=== PATIENT | male | born 1940 | race Caucasian/White ===

== ENCOUNTER 2025-01-28 15:22 | Emergency (ER) | payer MEDICARE, SELFPAY ==
[2025-01-28 15:34] VITALS: BP 166/76; PULSE 102; RESP 21; TEMP 36.6; O2SAT 100
--- NOTE | 2025-01-28 16:48 | ED_ITS ---
HPI - General Adult General Chief complaint: Urogenital-Male Stated complaint: retention Time Seen by Provider: 01/28/25 16:02 History of Present Illness HPI narrative: 85-year-old male present to the emergency department for evaluation for urinary retention. Patient had an outpatient procedure on his cochlear implant today. Patient was under anesthesia. Patient states after the procedure he had greater than 3 hours without any urinary output. Patient does have a history of enlar ged prostate but does not take any medications for this. Upon arrival emergency department patient had a bladder scan showing greater than 1 L of retained urine. Review of Systems Review of Systems: All systems reviewed & are unremarkable except as noted in HPI and below Exam 2 Narrative: APPEARANCE: Well appearing, no pain, no distress, well-nourished. HEAD: normocephalic, atraumatic. EYES: PERRLA/EOMI, conjunctivae clear. NOSE: Normal no drainage EARS: Bandage in place over right ear THROAT: Pharynx clear, no exudate. NECK: Supple. No adenopathy, no masses. RESPIRATORY: Airway patent, respirations nonlabored. Clear to auscultation bilaterally, no rales, rhonchi, wheezing. CARDIOVASCULAR: Regular rate and rhythm without murmurs rubs or gallops. ABDOMINAL: Soft, nontender, nondistended, normal bowel sounds MUSCULOSKELETAL: Moves all extremities. Strength/ROM intact, No edema, No calf tenderness. NEURO: Alert. Cranial nerves II through XII intact. Good gait. Good coordination SKIN: Warm, dry. Normal Color Course Vital Signs Vital signs: Vital Signs Temperature 97.8 F 01/28/25 15:34 Pulse Rate 102 H 01/28/25 15:34 Respiratory Rate 21 H 01/28/25 15:34 Blood Pressure 166/76 H 01/28/25 15:34 Pulse Oximetry 100 01/28/25 15:34 Oxygen Delivery Room Air 01/28/25 15:34 Temperature 97.8 F 01/28/25 15:34 Pulse Rate 102 H 01/28/25 15:34 Respiratory Rate 21 H 01/28/25 15:34 Blood Pressure 166/76 H 01/28/25 15:34 Pulse Oximetry 100 01/28/25 15:34 Oxygen Delivery Room Air 01/28/25 15:34 Medical Decision Making [facility] Narrative Medical decision making narrative: 84-year-old male presenting to the emergency department for evaluation for urinary retention. Bladder scan showed greater than 1 L of retained urine. Patient did have approximately 1400 mL urinary output after placement of Lindsay catheter. Patient family are updated on the evaluation and discharge plan. Patient will be discharged home with a Lindsay bag and a large bag. Patient does live in [place]. Patient will have follow-up with his primary care physician and urologist. He will be started on Flomax in the emergency department discharged home on Flomax. Differential Diagnosis Differential Diagnosis: Urinary retention, urinary tract infection, enlarged prostate Vital Signs Vital Signs: Vital Signs Temperature 97.8 F 01/28/25 15:34 Pulse Rate 102 H 01/28/25 15:34 Respiratory Rate 21 H 01/28/25 15:34 Blood Pressure 166/76 H 01/28/25 15:34 Pulse Oximetry 100 01/28/25 15:34 Oxygen Delivery Room Air 01/28/25 15:34 Temperature 97.8 F 01/28/25 15:34 Pulse Rate 102 H 01/28/25 15:34 Respiratory Rate 21 H 01/28/25 15:34 Blood Pressure 166/76 H 01/28/25 15:34 Pulse Oximetry 100 01/28/25 15:34 Oxygen Delivery Room Air 01/28/25 15:34 Discharge Plan Discharge Clinical Impression: Acute retention of urine Patient Disposition: Home Condition: Stable Instructions: Antibiotic Form, Lindsay Catheter Placement and Care (ED) Additional Instructions: Lindsay catheter care as directed. Have close follow-up with your primary care physician and with Urology. Patient Language: Slovak Prescriptions: New tamsulosin [Flomax] 0.4 mg capsule 0.4 mg PO DAILY 14 Days Qty: 14 0RF Follow-up/Referrals: PHYSICIAN NOT ON STAFF,NONSTAFF [Non-Staff] -
--- OUTSIDE RECORDS SUMMARY | 2025-01-28 17:19 | XMS_ITS | Encounter Summary ---
Author Organization [facility] althcare Address [address] [place] [address] Care Team Providers Care Forest Fire Management Officer Name Role Phone Kacey SHIN MD, Julius Avendaño Primary Care Provider [phone] Reason for Visit * Reason Comments Med Refill Encounter Details Date Type Department Care Team (Late st Contact Info) Description 01/03/2025 Refill [facility] G[facility] [address] [place] [phone] Kiya Anguiano, TITLE PROCESSOR [address] [place] [address] Medication refill; Ulcerative colitis without complications, unspecified location (HCC) Social History Tobacco Use Types Packs/Day Years Used Date Smoking Tobacco: Former Cigarettes 1 50 1 957 - 2007 Smokeless Tobacco: Never Alcohol Use Standard Drinks/Week Comments No 0 (1 standard drink = 0.6 oz pur e alcohol) Sex and Gender Information Value Date Recorded Sex Assigned at Not on file Legal Sex Male 8:51 PM CDT Gender Identity Not on file Sexual Orientation Not on file documented as of this encounter Miscellaneous Notes * Telephone Encounter - Oxana Andrade LPN - 01/03/2025 11:47 AM CDT Patient called at this time. Requesting the following medication refill be sent to pharmacy: Requested Prescriptions Pending Prescriptions Disp Refills mesalamine (LIALDA) 1.2 gram EC tablet [Pharmacy Med Name: Mesalamine 1.2 GM Oral Tablet Delayed Release] 360 tablet 0 Sig: TAKE 4 TABLETS BY MOUTH ONCE DAILY Pharmacy: [facility] [address] [place] [address] Verified patient's ID with Name and . Asked caller to allow clinic 48 hours to review and address the request. Advised he can check for status of refill with the pharmacy. Please review/address the requested medication and follow up with the patient. Message routed to Kiya Anguiano NP's Finisher Tailor Apprentice. Message sent to provider's clinical patient support tech (nursing) pool. Thank you. documented in this encounter Plan of Treatment Upcoming Encounters Date Type Department Care Team (Late st Contact Info) Description 02/26/2025 11:00 AM CDT Appointment [facility] [address] [place] [phone] Judy Bess PA [address] [place] [phone] 03/28/2025 2:00 PM CDT Office Visit [facility] Sleep Medicine Professional Office Building [address] [place] [phone] Lizeth Barreto MD [address] [place] [phone] 06/26/2025 1:10 PM VEGETABLE HARVEST MACHINE OPERATOR Office Visit [facility] Gastroenterology [address] [place], [place] [address] [place] [phone] Kiya Anguiano NP [address] [place] [address] [place] [address] 07/03/2025 11:10 AM VEGETABLE HARVEST MACHINE OPERATOR Office Visit [facility] Pulmonology [address] [place] [phone] Tita Graves NP [address] [place] [address], [place] [address] documented as of this encounter Visit Diagnoses Diagnosis Medication refill Issue of repeat prescriptions Ulcerative colitis without complications, unspecified location (HCC) documented in this encounter Care Teams Forest Fire Management Officer Relationship Specialty Start Date End Date Julius Erazo II, MD [address] [place] [address] PCP - General Last Scourer 02/02/17 documented as of this encounter
--- OUTSIDE RECORDS SUMMARY | 2025-01-28 17:19 | XMS_ITS | Encounter Summary ---
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 Aren Lazo MD [address] [place] [address] Phone: tel: fax: Referral ID Status Reason Start Date Expiration Date Visits Re quested Visits Authorized [id number] 11/16/2024 1 1 Encounter Details Date Type Department Care Team (Late st Contact Info) Description 01/28/2025 7:30 AM CDT Anesthesia Event [facility] Operating Room [address] [place] [address] Ata Vizcarra MD [address] [place] [address] Minda Gong NP [address] [facility] [id number] [place] [address] Anesthesia Record Procedure Summary Procedure Name Responsible Anesthesiologist Anesthesia Start Time Anesthesia Stop Time IMPLANTATION COCHLEAR DEVICE UNILATERAL. (Right: Ear) Ata Vizcarra MD 01/28/25 0730 01/28/25 09 Events Date Time Event Comment 01/28/2025 0728 0730 An Start 0736 An Start Data 0736 In Room 0741 An Induction The patient was reevaluated immediately before moderate or deep sedation use and before anesthesia induction. 0744 An Intubation 0746 HOB turned 180 degrees 0748 Anesthesia Ready 0748 Local injected by surgeon 0748 Proc Start 0758 Incision Start 0915 Proc Fin 0917 An Extubation 0919 an stop data 0919 Out of Room 0926 Handoff to RN I completed my handoff to the receiving nurse during which we: 1. Patient identified 2. Responsible provider identified 3. Pertinent medical history reviewed 4. Procedure type and surgical course discussed 5. Intraoperative anesthetic management and any significant issues discussed 6. Expectations and concerns for postop period discussed 7. Questions solicited from receiving nurse 8. Patient disposition at the time of handoff: No value filed. 09 An Stop Meds Name Total lidocaine 2 % PF 3 mL Propofol Bolus 100 mg Propofol Infusion 1,005.39 mg fentaNYL PF 50 mcg remifentaniL (ULTIVA) 1,000 mcg in sodium chloride 0.9% 20 mL (50 mcg/mL) infusion 0.61 mg ondansetron PF 4 mg dexamethasone 4 mg/ml 10 mg ePHEDrine 35 mg succinylcholine syringe 100 mg/5 mL 90 m g glycopyrrolate 0.4 mg ceFAZolin 2,000 mg phenylephrine (NOEMY-SYNEPHRIN E) 10,000 mcg in sodium chloride 0.9% 250 mL (40 mcg/mL) infusion 2.81 mg Lactated Ringer's (LR) infusion 800 mL * Agents Name O2% N2O O2 N2O Air * Blood No blood administrations on file. Lines, Drains, and Airways Type Details Placement Removal Wound 01/28/25; 0758; N; Incision; Ear; Right 01/28/25757 by Beth Veliz RN Peripheral IV Placement Date: 01/13 02/06; Placement Time: 612; Catheter Size: 20 G; Orientation: Distal, Posterior, Right; Location: Forearm; Site Prep: Alcohol; Technique: Anatomical landmarks; Inserted by: eden; Insertion Attempts: 1; Patient Tolerance: Tolerated well; Removal Date: 01/28/25; Removal Time: 1014; Removal Reason: Discharge 01/28/25 0613 by Mili Alcazar RN 01/28/25 1014 by Aida Gallagher RN ETT Placement Date: 01/13 02/06; Placement Time: 0758 (created via procedure documentation); Mask Ventilation: 0; Technique: Direct laryngoscopy; Type: ETT - single; Single Lumen Tube Size: 7.5 mm; Cuffed: Yes; Laryngoscope: Don; Blade Size: 4; Location: Oral; Grade View: Grade I; Insertion Attempts: 1; Placement Verification: Auscultation, Capnometry; Removal Date: 01/28/25; Removal Time: 91601/28/25 0758 by Minda Brizuela CRNA 01/28/25 0917 by Minda Brizuela CRNA documented in this encounter Social History Tobacco Use Types Packs/Day Years Used Date Smoking Tobacco: Former Cigarettes Q uit: 2006 Smokeless Tobacco: Never AUDIT-C Answer Date Recorded Q1: How often do you have a drink containing alcohol? Never 01/28/2025 Q2: How many drinks containi ng alcohol do you have on a typical day when you are drinking? Patient does not drink Q3: How often do you have si x or more drinks on one occasion? Never 01/28/2025 Personal Safety Answer Date Recorded Have you ever been in or are you currently in a harmful physical or emotional relationship or is someone making you feel afraid or unsafe? 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 Never 01/28/2025 5:50 AM FABRICIOT Eden Camacho RN Q2: How many drinks containing alcohol do you have on a typical day when you are drinking? Patient does not drink 01/28/2025 5:50 AM CDT Eden Camacho RN Q3: How often do you have six or more drinks on one occasion? Never 01/28/2025 5:50 AM CDT Eden Camacho RN documented as of this encounter OR Notes * Anesthesia Postprocedure Evaluation - Ata Vizcarra MD - 01/28/2025 9:59 AM CDT Patient: Narayan Morse Procedure Summary Date: 01/28/25 Room / Location: [facility]PERATING [facility]OM 3 / [facility] Anesthesia Start: 729 Anesthesia Stop: 925 Procedure: IMPLANTATION COCHLEAR DEVICE UNILATERAL. (Right: Ear) Diagnosis: Sensorineural hearing loss (SNHL) of both ears (SNHL bilateral) Surgeons: Aren Lazo MD Responsible Provider: Ata Vizcarra MD Anesthesia Type: general ASA Status: 3 Anesthesia Type: general Last vitals BP 133/65 Pulse 76 Temp 36.7 ??C (98.1 ??F) (Temporal) Resp 15 SpO2 98% Anesthesia Post Evaluation Patient location during evaluation: PACU Patient participation: complete - patient participated Level of consciousness: fully awake Pain management: adequate Airway patency: adequate Evidence of recall: no Cardiovascular status: acceptable Respiratory status: acceptable Hydration status: acceptable Pt is: normothermic Nausea/Vomiting status: none No notable events documented. * Anesthesia Procedure Notes - Minda Brizuela CRNA - 01/28/2025 7:58 AM CDT Associated Order(s): Airway Airway Patient location: OR Urgency: elective Date/time: 01/28/2025 7:44 AM Indications for airway management: anesthesia Difficult airway: no Staff: Supervising provider: Ata Vizcarra MD Placed by: AUTOPSY ASSISTANT: Minda Brizuela CRNA Emergent airway documentation: Risks and benefits discussed: yes Consent obtained: yes Consent given by: patient Airway prep: Preoxygenated: yes Patient position: sniffing MILS maintained throughout: yes Mask difficulty assessment: 0 - not attempted Spontaneous ventilation during airway: absent Sedation level during airway: GA Final airway details: Final airway type: endotracheal airway Tube type: ETT ETT size: 7.5 mm Cuffed: yes Technique used for successful ETT placement: direct laryngoscopy Insertion site: oral Blade type: Don Blade size: 4 Cormack-Lehane (direct): grade I - full view of glottis Cuff volume: 5 mL Cuff inflated with: air ETT to gums: 22 cm Placement verified by: auscultation and CO2 detection Airway secured with: silk tape Number of attempts: 1 * Anesthesia Preprocedure Evaluation - Ata Vizcarra MD - 01/16/2025 4:48 PM CDT Images from the original note were not included. Center for Preoperative Assessment and Planning Preoperative Evaluation Record Evaluation type/location: TPAP from [facility] Planned procedure site: [facility] Date: 01/16/25 NOTE: This note represents a preoperative evaluation initiated via telephone interview. NO PHYSICALEXAM was performed at the time of initial assessment. A physical exam may be added to this note anddocumented below. Anesthesia Evaluation Narayan Morse is a 84 y.o. male IMPLANTATION COCHLEAR DEVICE UNILATERAL. (Right: Ear) Pre-Op Diagnosis Codes: * Sensorineural hearing loss (SNHL) of both ears [H90.3] HISTORY HPI Narayan Morse is a 84 y.o. male with history of ocular CVA 2019, COPD on 2L NC at night, ICA stenosis (L <50%, R 50-69%), HTN, CAD s/p CABG x4 2006 then ELMER 10/2021, UC, with hearing loss presents for implantation cochlear device right ear Past Medical History Information obtained from: patient and chart. Information obtained during: Telephone Visit NOTE: This note represents a preoperative evaluation initiated via virtual (video or telephone) interview. NO PHYSICAL EXAM was performed at the time of initial assessment. A physical exam may be added to this note and documented below. Neurological + CVA/Stroke (in right eye during retinal procedure) Number of CVA episodes: 1. Date of last CVA: 2019. + ICA stenosis - left internal carotid artery and right internal carotid artery. Left ICA stenosis <50%. Right ICA stenosis 50-69%. + Psychiatric history - depression and anxiety + Dementia/mild cognitive impairment - mild cognitive impairment. Pertinent negatives: seizures; neuromuscular disease and TIA Cardiovascular + Hypertension + Hyperlipidemia (on statin) + CAD + CABG (x4) - Prior CABG date: 2006. + Drug-eluting stent(s) (PCI to RCA in October 2021) - Prior stent(s) date: 2021. + Systolic or diastolic dysfunction w/o CHF Diastolic dysfunction w/o CHF. Diastolic function: stage I - impaired relaxation LVEF: 60-70%. + Other arrhythmia (1st degree AV block) - bradycardia. Pertinent negatives: MA ; valvular heart disease; atrial fibrillation; pacemaker/ICD; DVT/PE; negative for CHF; bare metal stent(s) and unknown stent(s) type Comments: F/b [place] [facility] Respiratory + COPD Dyspnea frequency: never. Rescue inhaler use: never. Hospitalizations/ER in the last year: 0. FEV1 % predicted: 93%. + O2 use outside the hospital - Sleep O2: 2L/min. Pertinent negatives: asthma; sleep apnea (HERMES); pulmonary hypertension; no history of oral steriod use; no prior intubation for respiratory failure; non- smoker and no tracheostomy Comments: F/b pulmonology last OV in 10/17/24 Hepatic / Heme Pertinent negatives: liver disease Renal / Pertinent negatives: renal disease and dialysis Musculoskeletal/Pain Pertinent negatives: chronic pain Endocrine / Other + Rheumatological disease - ulcerative colitis. + Eye disorder - glaucoma. Pertinent negatives: diabetes mellitus (prediabetes); thyroid disease; obesity (BMI >30); cancerhistory; transplanted organ and infectious disease Functional Capacity Functional capacity: <4 METs Comments: Limited with poor balance. Can go to grocery store and walk aisles. Does not use assistive devices. Denies BHAT or CP as limiting factors with activity. Review of Systems + SOB (BHAT, chronic, improving) + previous transfusion (2006) + easy bruising (2/2 clopidogrel, denies excessive bleeding) + dizziness (chronic, stable for past couple of years) Pertinent negatives: productive cough; wheezing; recent cold/flu; fever; chest pain; orthopnea; pedal edema; PND; transfusion reaction; melena/hematochezia; bleeding problems; syncope; chronic pain; numbness/tingling and heartburn PAT Summary and Plans Cardiac risk classification of planned procedure: low cardiac risk. Preoperative assessment status: complete. Initial preoperative evaluation discussed with: Arsenio Garcia MD Additional comments: Narayan Morse is a 84 y.o. male who is being evaluated prior to undergoing a low cardiac risk surgery. Revised Cardiac Risk Index factors are (ischemic heart disease and history of cerebrovascular disease) for a total RCRI of 2 out of 6. Functional capacity is <4 METs (specifically:vertigo and balance issues, denies BHAT or CP recently). Obstructive sleep apnea (HERMES) screening status is STOP-BANG incomplete but suspected to be 0-2 suggesting low risk for HERMES. Neck circumference pending.. This assessment was performed via telephone. Therefore the physical exam has been deferred to the day of surgery team. The patient was provided with preoperative instructions for their medications. Patient instructions were provided by telephone and in writing sent via [employer] mail. Patient verbalized understanding of instructions. Blood bank needs for day of procedure: No type and screen needed Pending labs/tests include: None The patient is on clopidogrel therapy and has a history of ELMER, CAD, and CVA. Due to the likely higher bleeding risk of this drug, we recommend switching the patient to aspirin therapy for the perioperative period. We recommend discontinuing clopidogrel for 7 days prior to the procedure and starting aspirin 81 mg daily at that time. The patient can be switched back to their original medication when the bleeding risk has decreased. Per Urology & ENT protocol, patient provided directly with instructions. Please call the CPAP chart room clinician ([phone]) with any questions or to discuss alternative management plans. The patient is currently scheduled for their procedure at [facility]. The case was discussed amongst myself and CPAP attending Dr. Garcia due to 2L O2 at night, CAD, COPD. After discussion, it is felt that the patient is an appropriate candidate for the procedure at [facility]. Please note, the patient is on donepezil therapy which may contribute to prolonged action of depolarizing NMBD's and resistance to non-depolarizing NMBD's. Preoperative evaluation performed by Arsenio Hui NP on 01/16/25 at 5:28 PM . Patient Active Problem List Diagnosis Date Noted Sensorineural hearing loss, bilateral 07/24/2023 Past Medical History: Diagnosis Date On home oxygen therapy 2L/NC nightly Past Surgical History: Procedure Laterality Date CARDIAC STENT PLACEMENT 10/29/2021 COLONOSCOPY 2017 COLONOSCOPY 2018 COLONOSCOPY 2021 CORONARY ARTERY BYPASS GRAFT 2007 4 vessel SINUS SURGERY x3 VASECTOMY 1975 Allergies Allergen Reactions Hornet Venom Anaphylaxis and Swelling Venom-Honey Bee Other (See comments) Med List Status: Nurse Complete Set By: Michelle Galicia RN at 01/11/2025 4:02 PM Taking? Last Dose Start Date End Date Provider amLODIPine (NORVASC) 2.5 mg tablet 01/11/2025 03/16/24 -- Provider, MD Rose Mary azaTHIOprine (IMURAN) 50 mg tablet 01/10/2025 10/05/16 -- Provider, MD Rose Mary calcium carbonate-vitamin D3 1500 mg (600 mg elemental) -200 units per tablet 01/10/2025 -- -- Provider, HistoricalMD clopidogreL (PLAVIX) 75 mg tablet 01/11/2025 12/05/23 -- Provider, HistoricalMD cycloSPORINE (RESTASIS) 0.05 % ophthalmic emulsion 01/11/2025 -- -- Provider, MD Rose Mary donepeziL (ARICEPT) 10 mg tablet 01/10/2025 12/13/24 -- Provider, MD Rose Mary dorzolamide-timoloL (COSOPT) 22.3-6.8 mg/mL ophthalmic solution 01/11/2025 06/22/23 -- Provider, HistoricalMD DULoxetine DR (CYMBALTA) 60 mg capsule 01/11/2025 08/29/24 -- Provider, HistoricalMD EPINEPHrine 0.3 mg/0.3 mL auto-injection syringe -- 08/29/24 -- Provider, MD Rose Mary fenofibrate nanocrystallized (TRICOR) 145 mg tablet 01/11/2025 09/15/23 -- Provider, MD Rose Mary herbal drugs tablet 01/10/2025 -- -- ProviderRose Mary MD latanoprost (XALATAN) 0.005 % ophthalmic solution 01/10/2025 -- -- Provider, HistoricalMD medical supply, miscellaneous (MISCELLANEOUS MEDICAL SUPPLY [facility]) 01/11/2025 -- -- Rose Mary Snider MD memantine (NAMENDA) 10 mg tablet 01/11/2025 12/13/24 -- Rose Mary Snider MD mesalamine (LIALDA) 1.2 gram EC tablet 01/11/2025 07/19/14 -- Rose Mary Snider MD olmesartan (BENICAR) 5 mg tablet 01/10/2025 -- -- Rose Mary Snider MD rosuvastatin (CRESTOR) 20 mg tablet 01/10/2025 -- -- Rose Mary Snider MD Spiriva Respimat 1.25 mcg/actuation inhaler 01/11/2025 -- -- Rose Mary Snider MD traZODone (DESYREL) 50 mg tablet 01/10/2025 -- -- Rose Mary Snider MD vitamin B complex with vitamin C tablet 01/10/2025 -- -- Rose Mary Snider MD No current facility-administered medications for this encounter. Current Outpatient Medications: amLODIPine (NORVASC) 2.5 mg tablet azaTHIOprine (IMURAN) 50 mg tablet calcium carbonate-vitamin D3 1500 mg (600 mg elemental) -200 units per tablet clopidogreL (PLAVIX) 75 mg tablet cycloSPORINE (RESTASIS) 0.05 % ophthalmic emulsion donepeziL (ARICEPT) 10 mg tablet dorzolamide-timoloL (COSOPT) 22.3-6.8 mg/mL ophthalmic solution DULoxetine DR (CYMBALTA) 60 mg capsule EPINEPHrine 0.3 mg/0.3 mL auto-injection syringe fenofibrate nanocrystallized (TRICOR) 145 mg tablet herbal drugs tablet latanoprost (XALATAN) 0.005 % ophthalmic solution medical supply, miscellaneous (MISCELLANEOUS MEDICAL SUPPLY [facility]) memantine (NAMENDA) 10 mg tablet mesalamine (LIALDA) 1.2 gram EC tablet olmesartan (BENICAR) 5 mg tablet rosuvastatin (CRESTOR) 20 mg tablet Spiriva Respimat 1.25 mcg/actuation inhaler traZODone (DESYREL) 50 mg tablet vitamin B complex with vitamin C tablet Social History Tobacco Use Smoking Status Former Current packs/day: 0.00 Types: Cigarettes Quit date: 2006 Years since quittin.4 Smokeless Tobacco Never Alcohol Use: Not At Risk (01/11/2025) AUDIT-C Frequency of Alcohol Consumption: Never Average Number of Drinks: Patient does not drink Frequency of Binge Drinking: Never Substance and Sexual Activity Drug Use Never Family History Problem Relation Age of Onset Stomach cancer Mother Family history of malignant neoplasm of stomach - (Added by TW Conv) Crohn's disease Mother Family history of Crohn's disease - (Added by TW Conv) Diabetes Father Family history of diabetes mellitus - (Added by TW Conv) Heart attack Father Family history of myocardial infarction - (Added by TW Conv) Stomach cancer Sister Family history of malignant neoplasm of stomach - (Added by TW Conv) Stomach cancer Brother Family history of malignant neoplasm of stomach - (Added by TW Conv) Anesthesia problems Neg Hx There were no vitals filed for this visit. Relevant diagnostics: ECG(s): 12/13/23 SINUS BRADYCARDIA WITH FIRST DEGREE AV BLOCK HR 50 Echocardiogram(s): 07/01/23 Conclusions Summary: Left ventricle: The cavity size is normal. Wall thickness is normal. Systolic function is normal. The estimated ejection fraction is 65%. Wall motion is normal; there are no regional wall motion abnormalities. Doppler parameters are consistent with abnormal left ventricular relaxation (grade 1 diastolic dysfunction). Stress test(s): 09/14/23 IMPRESSION: 1. Negative ECG response to pharmacological stress. 2. No definitive evidence for stress-inducible ischemia. 3. Mild coronary calcifications present. 4. Normal left ventricular systolic function, calculated post stress ejection fraction is 71 % . 5. No high risk markers were present in the study. Cardiac catheterization(s): 10/29/21 Summary: 1. Left main: Ostial lesion: There is a 100%chronic total occlusion. 2. 2nd diagonal: The vessel is patent. . 3. Right coronary: Distal vessel lesion: Angioplasty was performed (see 2nd lesion). Mid-vessel lesion: The diagnostic study demonstrated a 99% stenosis. Stent placement was performed (see 3rd lesion). 4. TABOR graft to the 1st diagonal: The graft is patent. 5. Sequential TABOR graft to the distal LAD, continuing from the graft to the 1st diagonal: The graft is present. 6. Sequential saphenous vein graft to the 2nd obtuse marginal, continuing from the graft to the 1st obtuse marginal: The graft is present. 7. Saphenous vein graft to the 1st obtuse marginal, from the aorta: The graft is patent. 8. Successful percutaneous coronary intervention of the mid right coronary artery with PTCA using a 1.5 mm balloon, then a 2.0 mm balloon, followed by IVUS which demonstrated a 4.0 mm vessel with diffuse heterogeneous plaques extending from the distal to the proximal vessel. Further PTCA was performed using a 2.5 mm then a 3.0 mm balloon. A 3.5 X 38 Synergy ELMER stent was placed and was post dilated with a 3.5 mm NC balloon inflated to 19 marek. 9. Severe coronary artery disease with total occlusion of the ostial LM and subtotal occlusion of the mid RCA. 10. Perclose was used at the end of the procedure with no complication. Impressions: Successful percutaneous coronary intervention of the mid right coronary artery with PTCA using a 1.5 mm balloon, then a 2.0 mm balloon, followed by IVUS which demonstrated a 4.0 mm vessel with diffuse heterogeneous plaques extending from the distal to the proximal vessel. Further PTCA was performed using a 2.5 mm then a 3.0 mm balloon. A 3.5 X 38 Synergy ELMER stent was placed and was post dilated with a 3.5 mm NC balloon inflated to 19 marek. Severe coronary artery disease with total occlusion of the ostial LM and subtotal occlusion of the mid RCA. Perclose was used at the end of the procedure with no complication. PFT(s): 09/17/21 INTERPRETATION: 1. Mild obstructive lung disease with postbronchodilator FEV1 93.6% of predicted. 2. No air trapping or hyperinflation. 3. Moderate reduction in diffusion capacity. DIFFUSION CAPACITY: DLCO is 19.20 mL/min/mmHg (75.5% of predicted). DLCO/VA ratio is 90.5% of predicted. Vascular studies: 09/04/24 Impression: 1. 50-69% right ICA stenosis. 2. 16-49% left ICA stenosis. 3. Vertebrals: Antegrade flow bilaterally Other: N/A PT: No results found for requested labs within last 30 days. INR: No results found for requested labs within last 30 days. APTT: No results found for requested labs within last 30 days. Hgb A1C: No results found for requested labs within last 30 days. CBC RBC: No results found for requested labs within last 30 days. RDW: No results found for requested labs within last 30 days. MCHC: No results found for requested labs within last 30 days. MCH: No results found for requested labs within last 30 days. MCV: No results found for requested labs within last 30 days. Hct: No results found for requested labs within last 30 days. Hgb: No results found for requested labs within last 30 days. WBC: No results found for requested labs within last 30 days. MPV: No results found for requested labs within last 30 days. Platelets: No results found for requested labs within last 30 days. RDW CV: No results found for requested labs within last 30 days. RDW Sd: No results found for requested labs within last 30 days. BMP Glucose: No results found for requested labs within last 30 days. Calcium: No results found for requested labs within last 30 days. Sodium: No results found for requested labs within last 30 days. Potassium: No results found for requested labs within last 30 days. CO2: No results found for requested labs within last 30 days. Chloride: No results found for requested labs within last 30 days. BUN: No results found for requested labs within last 30 days. Creatinine: No results found for requested labs within last 30 days. Carlos index score: 95 DOS Physical Exam Medical history, medications, and allergies reviewed. Attestation: This PAT evaluation Airway Exam: Mallampati: II Cardiovascular Exam: Rate: regular Rhythm: regular Negative for Murmur Pulmonary Exam: LCTA, bilat Anesthesia Plan ASA 3 My patient is approved for the Anesthesia Controlled Medication protocol when under care of a AUTOPSY ASSISTANT Planned anesthesia: General Induction: Induction: intravenous. Postoperative Plan: Postoperative administration opioids intended. No postoperative mechanical ventilation intended. Patient's planned disposition post procedure is Outpatient. Informed Consent: Discussed plan with AUTOPSY ASSISTANT. Anesthesia plan and risks discussed with patient and daughter. Consent and Attending signature: I and/or my designee have discussed the anesthesia plan, benefits, possible alternatives, parental presence at time of induction (if indicated), and clinically relevant risks that may include dental injury, unintentional awareness, and/or other complications. The patient and/or parent/legal guardian understand, and agree to proceed. All questions answered. documented in this encounter Plan of Treatment Not on file documented as of this encounter Goals Goal Patient Goal Type Associated Problems Recent Progress Patient-Stated? Author Autogenerat ed Goal Care Plan Autogenerated Problem No Mili Alcazar RN documented as of this encounter Procedures Procedure Name Priority Date/Time Associated Diagnosis Comments [place] AN PROCEDURE PLACEHOLDER Routine 01/28/2025 7:58 AM CDT [place] AN ELECTIVE ENDOTRACHEAL AIRWAY Routine 01/28/2025 7:58 AM CDT documented in this encounter Results * [place] AN ELECTIVE ENDOTRACHEAL AIRWAY, [place] AN PROCEDURE PLACEHOLDER (01/28/2025 7:58 AM CDT) Narrative Minda Brizuela CRNA - 01/28/2025 7:58 AM CDT Minda Brizuela CRNA 01/28/2025 7:58 AM Airway Patient location: OR Urgency: elective Date/time: 01/28/2025 7:44 AM Indications for airway management: anesthesia Difficult airway: no Staff: Supervising provider: Ata Vizcarra MD Placed by: AUTOPSY ASSISTANT: Minda Brizuela CRNA Emergent airway documentation: Risks and benefits discussed: yes Consent obtained: yes Consent given by: patient Airway prep: Preoxygenated: yes Patient position: sniffing MILS maintained throughout: yes Mask difficulty assessment: 0 - not attempted Spontaneous ventilation during airway: absent Sedation level during airway: GA Final airway details: Final airway type: endotracheal airway Tube type: ETT ETT size: 7.5 mm Cuffed: yes Technique used for successful ETT placement: direct laryngoscopy Insertion site: oral Blade type: Don Blade size: 4 Cormack-Lehane (direct): grade I - full view of glottis Cuff volume: 5 mL Cuff inflated with: air ETT to gums: 22 cm Placement verified by: auscultation and CO2 detection Airway secured with: silk tape Number of attempts: 1 us Ata Vizcarra MD ANESTHESIA ORDERABLES Fin al Result documented in this encounter Visit Diagnoses Not on filedocumented in this encounter Administered Medications Inactive Administered Medications - up to 3 most recent administrations Medication Order MAR Action Action Date Dose Rate Site ceFAZolin (ANCEF) injection intravenous, Administer over 3 Minutes, As needed, Starting on Tue01/28/25 at 0743, Anesthesia Intra-op Given 01/28/2025 7:43 AM CDT 2,000 mg dexAMETHasone (DECADRON) 4 mg/mL injection intravenous, Administer over 2 Minutes, As needed, Starting on Tue01/28/25 at 0742, Anesthesia Intra-op Given 01/28/2025 7:42 AM CDT 10 mg ePHEDrine injection intravenous, Administer over 5 Minutes, As needed, Starting on Tue01/28/25 at 0757, Anesthesia Intra-op Given 01/28/2025 9:09 AM CDT 10 mg Given 01/28/2025 9:04 AM CDT 5 mg Given 01/28/2025 8:57 AM CDT 5 mg fentaNYL (SUBLIMAZE) preservative free injection intravenous, As needed, Starting on Tue01/28/25 at 0739, Anesthesia Intra-op Given 01/28/2025 7:39 AM CDT 50 mcg glycopyrrolate (ROBINUL) injection intravenous, Administer over 1 Minutes, As needed, Starting on Tue01/28/25 at 0752, Anesthesia Intra-op Given 01/28/2025 7:56 AM CDT 0.2 mg Given 01/28/2025 7:52 AM CDT 0.2 mg Lactated Ringer's (LR) infusion 30 mL/hr, intravenous, Continuous, Starting on Tue01/28/25 at 0615, Pre-Op Rate/Dose Verify 01/28/2025 7:30 AM CDT 30 mL/hr New Bag 01/28/2025 6:14 AM CDT 30 mL/hr 30 mL/hr lidocaine (PF) (XYLOCAINE) 20 mg/mL (2 %) preservative free injection intravenous, As needed, Starting on Tue01/28/25 at 0741, Anesthesia Intra-op Given 01/28/2025 7:41 AM CDT 3 mL ondansetron (ZOFRAN) injection intravenous, Administer over 2 Minutes, As needed, Starting on Tue01/28/25 at 0855, Anesthesia Intra-op Given 01/28/2025 8:55 AM CDT 4 mg phenylephrine (NOEMY-SYNEPHRINE) 10,000 mcg in sodium chloride 0.9% 250 mL (40 mcg/mL) infusion intravenous, Continuous PRN, Starting on Tue01/28/25 at 0752, Anesthesia Intra-op Rate/Dose Change 01/28/2025 8:57 AM CDT 0.2 mcg/kg/min 27.57 mL/hr Rate/Dose Change 01/28/2025 8:12 AM CDT 0.4 mcg/kg/min 55. 14 mL/hr Rate/Dose Change 01/28/2025 8:00 AM CDT 0.6 mcg/kg/min 82. 71 mL/hr propofoL (DIPRIVAN) 10 mg/mL IV intravenous, As needed, Starting on Tue01/28/25 at 0741, Anesthesia Intra-op Given 01/28/2025 7:41 AM CDT 100 mg propofoL (DIPRIVAN) 10 mg/mL IV intravenous, Continuous PRN, Starting on Tue01/28/25 at 0741, Anesthesia Intra-op Rate/Dose Change 01/28/2025 8:55 AM CDT 100 mcg/kg/min 55.14 mL/hr Rate/Dose Change 01/28/2025 7:53 AM CDT 130 mcg/kg/min 71. 682 mL/hr New Bag 01/28/2025 7:41 AM CDT 140 mcg/kg/min 77.196 mL /hr remifentaniL (ULTIVA) 1,000 mcg in sodium chloride 0.9% 20 mL (50 mcg/mL) infusion intravenous, Continuous PRN, Starting on Tue01/28/25 at 0741, Anesthesia Intra-op Rate/Dose Change 01/28/2025 8:55 AM CDT 0.03 mcg/kg/min 3.308 mL/hr Rate/Dose Change 01/28/2025 8:20 AM CDT 0.07 mcg/kg/min 7. 72 mL/hr New Bag 01/28/2025 7:41 AM CDT 0.1 mcg/kg/min 11.028 mL /hr succinylcholine syringe intravenous, As needed, Starting on Tue01/28/25 at 0742, Anesthesia Intra-op Given 01/28/2025 7:42 AM CDT 90 mg documented in this encounter Additional Health Concerns Active Problems Noted Date Diagnosed Date Autogenerated Problem 01/28/2025 documented as of this encounter Care Teams Cleaner Housekeeping Relationship Specialty Start Date End Date Aren Morales MD [address] [facility] [address] [address] PCP - General 02/23/17 documented as of this encounter
--- OUTSIDE RECORDS SUMMARY | 2025-01-28 17:19 | XMS_ITS | Encounter Summary ---
Author Organization [facility] Address [address] [place] [address] Care Team Providers Care Powerhouse Electrician Name Role Phone Kacey SHIN MD, Julius Avendaño Primary Care Provider [phone] Encounter Details Date Type Department Care Team (Late Contact Info) Description 08/05/2023 Orders Only [facility] Medical Group Gastroenterology [address] [place] [phone] Ellis Freedman MD Social History Tobacco Use Types Packs/Day Years Used Date Smoking Tobacco: Former Cigarettes 1 50 1 957 - 2006 Smokeless Tobacco: Never Alcohol Use Standard Drinks/Week Comments No 0 (1 standard drink = 0.6 oz pur e alcohol) Sex and Gender Information Value Date Recorded Sex Assigned at Not on file Legal Sex Male 8:51 PM CDT Gender Identity Not on file Sexual Orientation Not on file documented as of this encounter Plan of Treatment Upcoming Encounters Date Type Department Care Team (Late Contact Info) Description 02/26/2025 11:00 AM CDT Appointment [facility] [address] [place] [phone] Judy Bess PA [address] [place] [address] 03/28/2025 2:00 PM CDT Office Visit [facility] Sleep Medicine Professional Office Building [address] [facility] [address] [place] [phone] Lizeth Barreto MD [address] [address] 06/26/2025 1:10 PM PREMIX CONCRETE BATCHER Office Visit [facility]astroenter[facility] [address] [place] [address] [place] [phone] Kiya Anguiano NP [address] [place] [address] [place] [address] 07/03/2025 11:10 AM PREMIX CONCRETE BATCHER Office Visit [facility] Pulmonology [address] [place] [phone] Tita Graves NP [address] [place] [phone] documented as of this encounter Visit Diagnoses Not on filedocumented in this encounter Additional Health Concerns Infection Onset Date Last Indicated Resolved Time R/O C. difficile 08/04/2023 08/05/2023 08/05/2023 8:55 PM PREMIX CONCRETE BATCHER C. difficile Carrier 08/05/2023 08/05/2023 024 12:21 AM PREMIX CONCRETE BATCHER R/O C. difficile 08/19/2023 08/22/2023 08/22/2023 4:14 PM PREMIX CONCRETE BATCHER R/O COVID-19 08/30/2023 08/30/2023 08/30/2023 4:19 PM PREMIX CONCRETE BATCHER R/O C. difficile 02/23/2024 11/21/2024 02/28/2024 12:21 AM CDT R/O C. difficile 10/24/2024 11/21/2024 10/29/2024 12:21 AM CDT documented as of this encounter Care Teams Powerhouse Electrician Relationship Specialty Start Date End Date Julius Erazo II, MD [address] [place] [address] PCP - General Adoption Counselor 02/02/17 documented as of this encounter
--- OUTSIDE RECORDS SUMMARY | 2025-01-28 17:19 | XMS_ITS | Encounter Summary ---
Author Organization [facility] Address [address] [place] [address] Care Team Providers Care Print Finishing Worker Name Role Phone Kacey SHIN MD, Julius Avendaño Primary Care Provider [phone] Reason for Visit * Reason Comments Med Refill Encounter Details Date Type Department Care Team (Late st Contact Info) Description 09/15/2022 Refill [facility] Medical Group Gastroenterology [address] [place] [phone] Kiya Anguiano NP [address] [place] [address] Medication refill; Ulcerative colitis without complications, unspecified [...] encounter Miscellaneous Notes * Telephone Encounter - Kiya Anguiano NP - 09/16/2022 8:12 AM CST This was sent in 09/15/22 CAL OFFICE ASSISTANT documented in this encounter Plan of Treatment Upcoming Encounters Date Type Department Care Team (Late st Contact Info) Description 02/26/2025 11:00 AM CDT Appointment [facility] [address] [place] [phone] Judy Bess PA [address] [place] [address] 03/28/2025 2:00 PM CDT Office Visit [facility] Sleep Medicine Professional Office Building [address] [place] [phone] Lizeth Barreto MD [address] [place] [address] 06/26/2025 1:10 PM MEDICAL OFFICE ASSISTANT Office Visit [facility] Gastroenterology [address] [place] [address] [place] [phone] Kiya Anguiano NP [address] [place] [address] [place] [address] 07/03/2025 11:10 AM MEDICAL OFFICE ASSISTANT Office Visit [facility] Pulmonology [address] [place] [phone] Tita Graves, REESE [address] [place] [phone] documented as of this encounter Visit Diagnoses Diagnosis Medication refill Issue of repeat prescriptions Ulcerative colitis without complications, unspecified location (HCC) documented in this encounter Additional Health Concerns Infection Onset Date Last Indicated Resolved Time R/O C. difficile 06/09/2023 06/14/2023 06/14/2023 8:50 PM CDT R/O GI Infection 06/13/2023 06/13/2023 06/13/2023 5:51 PM CDT C. difficile Carrier 06/14/2023 06/14/202306/28/2 023 12:21 AM MEDICAL OFFICE ASSISTANT R/O C. difficile 06/28/2023 06/30/2023 06/30/2023 3:55 PM MEDICAL OFFICE ASSISTANT R/O C. difficile 08/04/2023 08/05/2023 08/05/2023 8:55 PM MEDICAL OFFICE ASSISTANT C. difficile Carrier 08/05/2023 08/05/2023 024 12:21 AM MEDICAL OFFICE ASSISTANT R/O C. difficile 08/19/2023 08/22/2023 08/22/2023 4:14 PM MEDICAL OFFICE ASSISTANT R/O COVID-19 08/30/2023 08/30/2023 08/30/2023 4:19 PM MEDICAL OFFICE ASSISTANT R/O C. difficile 02/23/2024 11/21/2024 02/28/2024 12:21 AM CDT R/O C. difficile 10/24/2024 11/21/2024 10/29/2024 12:21 AM CDT documented as of this encounter Care Teams Print Finishing Worker Relationship Specialty Start Date End Date Julius Erazo II, MD [address] [place] [address] PCP - General Wetlands Conservation Laborer 02/02/17 documented as of this encounter
--- OUTSIDE RECORDS SUMMARY | 2025-01-28 17:19 | XMS_ITS | Continuity of Care Document ---
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 Role Phone Phoenix Kenroy PEREIRA Unavailable Unavailable Allergies, Adverse Reactions, Alerts Substance Reaction Status Criticality No Known Allergies Active No Inform ation Medications Medication Instructions Dosage Effective Dates (start - stop) Status Comments pravastatin 40 mg tablet - Active olmesartan 20 mg tablet - Active Restasis MultiDose 0.05 % eye drops - Active dorzolamide 2 % eye drops - Active amlodipine 5 mg tablet take 1 tablet by oral route every day 5 MG - Active duloxetine 30 mg capsule,delayed release take 1 capsule by oral route every day 30 MG - Active mesalamine 1.2 gram tablet,delayed release take 2 tablet by oral route every day with a meal 2.4 G - Active Aspir-81 81 mg tablet,delayed release take 1 tablet by oral route every day - Active Azasan 75 mg tablet take 1 tablet by ora l route every day 75 MG - Active Symbicort 80 mcg-4.5 mcg/actuation HFA aerosol inhaler inhale 2 puff by inhalation route 2 times every day in the morning and evening 2.00 puff - Active Procedures Procedure Date Therapeutic activities (one on one) Physical Tx excercises each 15 min Apr- Therapeutic activities (one on one) Physical Tx excercises each 15 min Apr-08 20-2023 Therapeutic activities (one on one) Physical Tx excercises each 15 min Apr- 2-2023 Therapeutic activities (one on one) Physical Tx excercises each 15 min Apr--2023 Therapeutic activities (one on one) Physical Tx excercises each 15 min Apr- Therapeutic activities (one on one) Physical Tx excercises each 15 min Therapeutic activities (one on one) Physical Tx excercises each 15 min Therapeutic activities (one on one) Physical Tx excercises each 15 min Therapeutic activities (one on one) Physical Tx excercises each 15 min -2023 Therapeutic activities (one on one) Physical Tx excercises each 15 min Therapeutic activities (one on one) Physical Tx excercises each 15 min Therapeutic activities (one on one) Physical Tx excercises each 15 min Therapeutic activities (one on one) Physical Tx excercises each 15 min Physical Therapy Evaluation Low Complexi ty Spine Xray Cervical 3 Views Or Less Office/outpatient visit,est, mod 2022 Manual therapy 1+ regions, ea 15 mn Biofreeze Physical Tx excercises each 15 min Manual therapy 1+ regions, ea 15 mn Physical Tx excercises each 15 min Manual therapy 1+ regions, ea 15 mn Physical Therapy Evaluation Low Complexi ty Physical Tx excercises each 15 min Elder Maltreatment Screen Documented As Negative N BMI Calculated And Found Outside Of Norm al Limits Complete List Of Patients Medications Ar e Document Screening For Clinical Depression Is Doc umented As Functional Outcome Tool Used And Deficie ncies Repo No Falls Less Than 2 No Injury In Past Y ear) Office/outpatient visit,est, mod 2020 Aquatic therapy w/exercises Aquatic therapy w/exercises Aquatic therapy w/exercises Aquatic therapy w/exercises Inj Procedure Sacroilliac Joint w/fluoro scopy Inc Arthrography Methylprednisolone 40 Mg Physical Therapy Evaluation Low Complexi ty Physical Tx excercises each 15 min Elder Maltreatment Screen Documented As Negative N BMI Is Calculated And Above Normal Laron eters And Complete List Of Patients Medications Ar e Document Screening For Clinical Depression Is Doc umented As Functional Outcome Tool Used And Deficie ncies Repo No Falls Less Than 2 No Injury In Past Y ear) Fall Plan Of Care Must Document Use Of A ppropriate Current Tobacco Non User Office/outpatient visit,est, mod 2020 Inj(s) Lumbar Epidural W Fluoro Guidance Methylprednisolone 80 Mg Aquatic therapy w/exercises Aquatic therapy w/exercises Office/outpatient visit,est, mod 2020 Aquatic therapy w/exercises Physical Tx excercises each 15 min Aquatic therapy w/exercises Aquatic therapy w/exercises Aquatic therapy w/exercises Aquatic therapy w/exercises Mechanical traction therapy Physical Tx excercises each 15 min Spine Xray Lumbosacral Min Of 4 Views Ju Office consultation, moderate-high Jan- Physical Tx excercises each 15 min Mechanical traction therapy Physical Tx excercises each 15 min Mechanical traction therapy Manual therapy 1+ regions, ea 15 mn Physical Tx excercises each 15 min Physical Tx excercises each 15 min Gait training therapy Crutches,Underarm - Not Wood Physical Therapy Evaluation Low Complexi ty Physical Tx excercises each 15 min BMI Is Calculated And Above Normal Laron eters And Complete List Of Patients Medications Ar e Document Screening For Clinical Depression Is Doc umented As No Falls Less Than 2 No Injury In Past Y ear) Fall Plan Of Care Must Document Use Of A ppropriate Elder Maltreatment Screen Documented As Negative N Functional Outcome Tool Used And Deficie ncies Repo Knee Xray 3 Views Hip Xray 2 To 3 Views Unilateral W Pelvi s When Per Office/outpatient visit,est, mod 2020 Office/outpatient visit,new, mod 2017 Advance Directives Directive Yes / No Effective Date File Name No Information Encounters Encounter Description Practice Location Reason(s) For Visit Diagnoses Date Provider Providers Copied on Encounter [facility], [address] [place] [address], [id number], tel:[phone] [facility] 4 Phoenix Jasmine. [address] [place] [address], [id number] , . tel:[phone] Referring Provider: Julius Avendaño, [address] [place], [address] . tel:[phone] [facility], [address] [place] [address], [id number], tel:[phone] [facility] Apr- 4 Phoenix Jasmine. [address] [place] [address], [id number] , . tel:[phone] Referring Provider: Julius Avendaño, [address] [place], [address] . tel:[phone] [facility], [address] [place] [address], [id number], [place] tel: [phone] [facility]/OT Sep-1 2-202 4 Phoenix Kenroy. [address], [place], [id number] , [place]. tel: [phone] Referring Provider: Julius Avendaño, [address] [place], [address] . tel:[phone] [facility], [address] [place] [address], [id number], [place] tel: [phone] [facility] Sep-1 0-202 4 Phoenix Kenroy. [address] [place] [address], [id number] , . tel: [phone] Referring Provider: Julius Avendaño, [address] [place], [address] . tel:[phone] [facility], [address] [place] [address], [id number], [place] tel: [phone] [facility] Sep-0 6-202 4 Phoenix Kenroy. [address] [place] [address], [id number] , [place]. tel: [phone] Referring Provider: Julius Avendaño, [address] [place], [address] . tel:[phone] [facility], [address] [place] [address], [id number], [place] tel: [phone] [facility] Sep-0 4-202 4 Phoenix Kenroy. [address] [place] [address], [id number] , [place]. tel: [phone] Referring Provider: Julius Avendaño, [address] [place], [address] . tel:[phone] [facility], [address] [place] [address], [id number], tel: [phone] [facility] 4 Phoenix Jasmine. [address], [place], [id number] , [place]. tel: [phone] Referring Provider: Julius Avendaño, [address] [place], [address] . tel:[phone] [facility], [address] [place] [address], [id number], tel: [phone] [facility] 4 Phoenixladarius Jasmine. [address], [place], [id number] , [place]. tel: [phone] Referring Provider: Julius Avendaño, [address] [place], [address] . tel:[phone] [facility], [address] [place] [address], [id number], tel: [phone] [facility] 4 Phoenixladarius Jasmine. [address], [place], [id number] , [place]. tel: [phone] Referring Provider: Julius Avendaño, [address] [place], [address] . tel:[phone] [facility], [address] [place] [address], [id number], tel: [phone] [facility] 4 Phoenix Jasmine. [address], [place], [id number] , [place]. tel: [phone] Referring Provider: Julius Avendaño, [address] [place], [address] . tel:[phone] [facility], [address] [place] [address], [id number], tel:[phone] [facility] 4 Phoenix Jasmine. [address], [place], [id number] , [place]. tel: [phone] Referring Provider: Julius Avendaño, [address] [place], [address] . tel:[phone] [facility], [address] [place] [address], [id number], tel:[phone] [facility] 4 Phoenix Jasmine. [address] [place] [address], [id number] , . tel:[phone] Referring Provider: Julius Avendaño, [address] [place], [address] . tel:[phone] [facility], [address] [place] [address], [id number], tel:[phone] [facility] WeaknessUnsteadin ess on feetOther abnormalities of gait and mobility 4 Phoenix Jasmine. [address] [place] [address], [id number] , . tel:[phone] Referring Provider: Julius Avendaño, [address] [place], [address] . tel:[phone] Office/outpa tient visit,est, mod [facility], [address] [place] [address], [id number], tel:[phone] [facility] cervical spine (chief complaint) CervicalgiaDDD (degenerative disc disease), cervicalCervical spondylosis 3 Aj Archibald. [address] [place] [address], [id number] , . tel:[phone] Referring Provider: Dragan Hoyos, [address] [place] [address], [address] . tel:[phone] [facility], [address] [place] [address], [id number], tel:[phone] [facility] 3 Anuel Combs. [address] [place] [address], [id number] , . tel:[phone] Referring Provider: Julius Avendaño, [address] [place], [address] . tel:[phone] [facility], [address] [place] [address], [id number], tel:[phone] [facility] Cervicalgia 3 Agee Lauryn. [address] [place] [address], [id number] , . tel: [phone] Referring Provider: Julius Avendaño, [address] [place], [address] . tel:[phone] [facility], [address] [place] [address], [id number], tel:[phone] [facility] No Information 3 Agee Lauryn. [address] [place] [address], [id number] , . tel: [phone] Referring Provider: Julius Avendaño, [address] [place], [address] . tel:[phone] [facility], [address] [place] [address], [id number], tel:[phone] [facility] 3 Agee Lauryn. [address] [place] [address], [id number] , . tel: [phone] Referring Provider: Julius Avendaño, [address] [place], [address] . tel:[phone] [facility], [address] [place] [address], [id number], tel:[phone] [facility] 3 Agee Lauryn. [address] [place] [address], [id number] , . tel: [phone] Referring Provider: Julius Avendaño, [address] [place], [address] . tel:[phone] [facility], [address] [place] [address], [id number], tel:[phone] [facility] Cervicalgia 3 Ageetawana Combs. [address] [place] [address], [id number] , . [phone] Referring Provider: Julius Avendaño, [address] [place], [address] . tel:[phone] Office/outpa tient visit,est, mod [facility], [address] [place] [address], [id number], tel:[phone] [facility] cervical spine (chief complaint) Lumbago with sciatica, right sideSacroiliitis 1 Froilan Echeverria. [address] [place] [address], [id number] , . [phone] Referring Provider: Juwan Gonzalez, [address] [place] [address], [address] . tel:[phone] [facility], [address] [place] [address], [id number], tel:[phone] [facility] No Information 1 Yaya Parra. [address] [place] [address], [id number] , [place]. tel:[phone] Referring Provider: Radha Craig, [address], [place], [address] . tel:[phone] [facility], [address] [place] [address], [id number], [place] tel:[phone] [facility] No Information 1 Yaya Parra. [address] [place] [address], [id number] , . tel:[phone] Referring Provider: Radha Craig, [address], [place], [address] . tel:[phone] [facility], [address] [place] [address], [id number], tel:[phone] [facility] Lumbago with sciatica, right sideRadiculopathy , lumbar regionSpondylosis w/o myelopathy or radiculopathy, lumbar regionLow back pain Oct-0 - 1 Aj Meshnellie. [address] [place] [address], [id number] , . tel:[phone] Referring Provider: Radha Craig, [address], [place], [address] . tel:[phone] [facility], [address] [place] [address], [id number], tel:[phone] [facility] No Information Sep-3 1 Yaya Parra. [address] [place] [address], [id number] , . tel:[phone] Referring Provider: Radha Craig, [address], [place], [address] . tel:[phone] [facility], [address] [place] [address], [id number], tel:[phone] [facility] No Information Sep-2 1 Yaya Parra. [address] [place] [address], [id number] , [place]. tel:[phone] Referring Provider: Radha Craig, [address], [place], [address] . tel:[phone] [facility], [address] [place] [address], [id number], tel:[phone] [facility] Procedure Room Other chronic pain Sep-1 1 Zev Garcia. [address], [facility] [place], [id number] , [place]. tel:[phone] Referring Provider: Radha Craig, [address], [place], [address] . tel:[phone] [facility], [address] [place] [address], [id number], tel:[phone] [facility] No Information 1 Yaya Parra. [address] [place] [address], [id number] , . tel:[phone] Referring Provider: Juwan Gonzalez, [address] [place] [address], [address] . tel:[phone] Office/outpa tient visit,est, mod [facility], [address] [place] [address], [id number], tel:[phone] [facility] lumbar spine (chief complaint) Low back painLumbago with sciatica, right sideRadiculopathy , lumbar regionSpondylosis w/o myelopathy or radiculopathy, lumbar regionSI (sacroiliac) joint dysfunction Sep-0 1 Aj Dragan. [address] [place] [address], [id number] , . tel:[phone] [facility], [address] [place] [address], [id number], tel:[phone] [facility] Procedure Room Other chronic pain 1 Zev Garcia. [address], [place], [place], [id number] , [place]. tel:[phone] Referring Provider: Radha Craig, [address], [place], [address] . tel:[phone] [facility], [address] [place] [address], [id number], [place] tel:[phone] [facility] 1 Yaya Parra. [address] [place] [address], [id number] , . tel:[phone] Referring Provider: Juwan Gonzalez, [address] [place] [address], [address] . tel:[phone] [facility], [address] [place] [address], [id number], tel:[phone] [facility] Lumbago with sciatica, right side 1 Yaya Parra. [address] [place] [address], [id number] , . tel:[phone] Referring Provider: Juwan Gonzalez, [address] [place] [address], [address] . tel:[phone] Office/outpa tient visit,est, mod [facility], [address] [place] [address], [id number], tel:[phone] [facility] lumbar spine (chief complaint) Radiculopathy, lumbar region 1 Aj Dragan. [address] [place] [address], [id number] , . [phone] [facility], [address] [place] [address], [id number], tel:[phone] [facility] 1 Yaya Parra. [address] [place] [address], [id number] , . tel:[phone] Referring Provider: Juwan Gonzalez, [address] [place] [address], [address] . tel:[phone] [facility], [address] [place] [address], [id number], tel:[phone] [facility] No Information 1 Yaya Parra. [address] [place] [address], [id number] , . tel:[phone] Referring Provider: Juwan Gonzalez, [address] [place] [address], [address] . tel:[phone] [facility], [address] [place] [address], [id number], tel:[phone] [facility] 1 Yaya Parra. [address] [place] [address], [id number] , [place]. tel:[phone] Referring Provider: Juwan Gonzalez, [address] [place] [address], [address] . tel:[phone] [facility], [address] [place] [address], [id number], tel:[phone] [facility] No Information 1 Yaya Parra. [address] [place] [address], [id number] , [place]. [phone] Referring Provider: Juwan Gonzalez, [address] [place] [address], [address] . tel:[phone] [facility], [address] [place] [address], [id number], tel:[phone] [facility] No Information 1 Yaya Parra. [address] [place] [address], [id number] , [place]. [phone] Referring Provider: Juwan Gonzalez, [address] [place] [address], [address] . tel:[phone] [facility], [address] [place] [address], [id number], tel:[phone] [place] [facility] Low back pain 1 Zev Garcia. [address] [facility], [place], [place], [id number] , [place]. [phone] Referring Provider: Radha Craig, [address] [place] [address], [address] . tel:[phone] [facility], [address] [place] [address], [id number], [place] tel:[phone] [facility] 1 Yaya Parra. [address] [place] [address], [id number] , [place]. [phone] Referring Provider: Juwan Gonzalez, [address] [place] [address], [address] . tel:[phone] [facility], [address] [place] [address], [id number], tel:[phone] [facility] Lumbago with sciatica, right side Cr-0 1-202 1 Yaya Parra. [address] [place] [address], [id number] , . tel:[phone] Referring Provider: Abel Elizondo, [address] [place] [address], [address] . tel:[phone] Office consultation , moderate-hig h [facility], [address] [place] [address], [id number], tel:[phone] [place] [facility] lumbar spine (chief complaint) Low back painSI (sacroiliac) joint dysfunctionLumbar spondylosisLumbar radiculopathy Adriel-3 0- 1 Aj Dragan. [address] [place] [address], [id number] , . tel:[phone] Referring Provider: Abel Elizondo, [address] [place] [address], [address] . tel:[phone] [facility], [address] [place] [address], [id number], tel:[phone] [facility] Adriel-2 1 Yaya Parra. [address] [place] [address], [id number] , . tel:[phone] Referring Provider: Abel Elizondo, [address] [place] [address], [address] . tel:[phone] [facility], [address] [place] [address], [id number], tel:[phone] [facility] Adriel-2 1 Yaya Parra. [address] [place] [address], [id number] , . tel:[phone] Referring Provider: Abel Elizondo, [address] [place] [address], [address] . tel:[phone] [facility], [address] [place] [address], [id number], tel:[phone] [facility] Adriel-2 1 Yaya Parra. [address] [place] [address], [id number] , . tel: [phone] Referring Provider: Abel Elizondo, [address] [place] [address], [address] . tel:[phone] [facility], [address] [place] [address], [id number], tel:[phone] [facility] Adriel- 1 Yaya Parra. [address] [place] [address], [id number] , . tel: [phone] Referring Provider: Abel Elizondo, [address] [place] [address], [address] . tel:[phone] [facility], [address] [place] [address], [id number], tel:[phone] [facility] Adriel- 1 Yaya Parra. [address] [place] [address], [id number] , [place]. tel: [phone] Referring Provider: Abel Elizondo, [address] [place] [address], [address] . tel:[phone] Office/outpa tient visit,[facility], [address] [place] [address], [id number], tel:[phone] [facility] knee (chief complaint) right hip pain (chief complaint) Pain in right kneePain in right hipAcute right-sided low back pain with right-sided sciatica 1 Chris Roman. [address] [place] [address], [id number] , . tel: [phone] Office/outpa tient visit,[facility], [facility], [address] [place] [address], [id number], tel:[phone] ANDRIAKong GLENYS lumbar spine (chief complaint) Midline low back pain, with sciatica presence unspecifiedSpondy lolisthesis of lumbar region 8 Sylvester Oliver. [address], [place], [id number] , . tel:[phone] Family History Family Member Type Diagnosis Age At Onset Brother Problem (finding) coronary arterioscleros is Brother Problem (finding) Diabetes mellitus Brother Problem (finding) Cancer, unknown Payers Payer name Insurance type Covered constitution party ID Authoriza tion(s) [employer] [place] [id number] Social History Type Description Quantity Date Captured Comments Sex Male Smoking Status No Information Chief Complaint And Reason For Visit No Information Reason For Referral Reason For Referral No Information Plan Of Treatment Date Type Action Status Goal Tobacco cessation counseling completed Goal Tobacco cessation counseling completed Goal Tobacco cessation counseling completed Goal Tobacco cessation counseling completed Referral Ordered: Radha Brothers MD -Allopathic & Osteopathic Physicians : Physical Medicine & Rehabilitation (related to Spondylosis w/o myelopathy or radiculopathy, lumbar region) ordered Referral Referred To: Radha Brothers MD [address] [place], [place], [id number] Ordered: Referrals: Allopathic & Osteopathic Physicians : Physical Medicine & Rehabilitation. Radha Brothers MD. Consult ordered Referral Ordered: Radha Brothers MD -Allopathic & Osteopathic Physicians : Physical Medicine & Rehabilitation (related to Low back pain) ordered Referral Ordered: Radha Brothers MD -Allopathic & Osteopathic Physicians : Physical Medicine & Rehabilitation (related to Radiculopathy, lumbar region) ordered Referral Ordered: Radha Brothers MD -Allopathic & Osteopathic Physicians : Physical Medicine & Rehabilitation (related to SI (sacroiliac) joint dysfunction) ordered Referral Referred To: Radha Brothers MD [address] [place], [place], [id number] Ordered: Referrals: Allopathic & Osteopathic Physicians : Physical Medicine & Rehabilitation. Radha Brothers MD ordered Future Order: Radiology Order Sp ine Xray Cervical 3 Views Or Less ([id number]), Ordered on: Ordered Future Order: Radiology Order Sp ine Xray Cervical 4 Or 5 Views ([id number]), Ordered on: Ordered Future Order: Radiology Order MR I Lumbar Spine W/O Contrast ([id number]), Ordered on: Ordered Future Order: Radiology Order Sp ine Xray Lumbosacral Min Of 4 Views ([id number]), Ordered on: Ordered Future Order: Radiology Order Hi p Unil W Pelvis 2-3 Views ([id number]), Ordered on: Ordered Future Order: Radiology Order Kn ee Xray 3 Views ([id number]), Ordered on: Ordered History Of Present Illness Encounter Date Complaint History Of Prese nt Illness cervical spine Mr Morse is a 82 year old male who complains of. He presents with pain. The symptoms occur constantly. The problem is worse. Currently the patient states that the symptoms are moderate. The pain is described as aching and shooting. The patient is experiencing pain in the following location: neck. The symptoms are aggravated by extension and flexion. Narayan states that the symptoms are relieved by rest. cervical spine Mr Morse is a 80 year old male who complains of cervical spine. He presents with pain. He states that the symptoms have been chronic non-traumatic. The symptoms occur constantly. The problem is worse. Currently the patient states that the symptoms are severe. The pain is described as aching and discomforting. The patient is experiencing pain in the following location: neck. The symptoms are aggravated by extension and flexion. Narayan states that the symptoms are relieved by rest and sitting. lumbar spine Mr Morse is a 80 year old male who complains of lumbar spine. He presents with pain. The symptoms occur constantly. The problem is worse. Currently the patient states that the symptoms are moderate-severe. The pain is described as aching, burning, sharp, stabbing and throbbing. The symptoms occur continuously. The symptoms are aggravated by ascending stairs, daily activities and descending stairs. Narayan states that the symptoms are relieved by heat, ice and rest. lumbar spine Mr Morse is a 80 year old male who complains of lumbar spine. He presents with pain. The symptoms occur constantly. The problem is worse. Currently the patient states that the symptoms are moderate-severe. The pain is described as aching, burning, sharp, stabbing and throbbing. The symptoms occur continuously. The symptoms are aggravated by ascending stairs, daily activities and descending stairs. Narayan states that the symptoms are relieved by heat, ice and rest. lumbar spine Mr Morse is a 80 year old male who complains of lumbar spine. He presents with pain. The symptoms occur constantly. The problem is worse. Currently the patient states that the symptoms are moderate-severe. The pain is described as sharp, stabbing and throbbing. The symptoms occur continuously. He rates his worst pain as 10/10. The symptoms are aggravated by standing. Narayan states that the symptoms are relieved by rest and sitting. In addition to lumbar spine the patient is also experiencing radiating pain, joint pain. The patient has had a previous x-ray. knee right hip pain Mr Morse is a 80 year old male who complains of right hip pain. He presents with pain on the right side. He indicates the injury occurred at home. Narayan states that the symptoms began as the result of repetative lifting and shoveling. The symptoms occur constantly. The problem is fluctuating. Currently the patient states that the symptoms are severe. The pain is described as diffuse. The symptoms occur with activity. lumbar spine Mr Morse is a 77 year old male who complains of lumbar spine. He presents with pain. He states that the symptoms have been chronic non-traumatic. The symptoms occur constantly. The problem is worse. Currently the patient states that the symptoms are moderate-severe. The pain is described as aching, discomforting and throbbing. The patient is experiencing pain in the following location: lower back. The symptoms are aggravated by flexion, walking, daily activities and extension. Narayan states that the symptoms are relieved by rest and sitting. Functional Status Date Functional Assessmen t No Information Instructions Date Instruction Additional Infor mation No Information Assessments Type Assessment Date No Information Patient Care Teams Name Effective Dates (start - stop) Status Members No Information
--- OUTSIDE RECORDS SUMMARY | 2025-01-28 17:19 | XMS_ITS | Encounter Summary ---
Author Organization [facility] Address [address] [place] [address] Care Team Providers Care Linen Keeper Name Role Phone Kacey SHIN MD, Julius Avendaño Primary Care Provider [phone] Reason for Visit * Reason Comments Med Refill Encounter Details Date Type Department Care Team (Late st Contact Info) Description 12/25/2017 Refill [facility] Pulmonology [address] [place] [address] [phone] Chin Garg MD [address] [place] [address] [address] [place] [address] Chronic obstructive pulmonary disease, unspecified COPD type (CMS/HCC) (HCC) (Primary Dx) Social History Tobacco Use Types Packs/Day Years Used Date Smoking Tobacco: Former Cigarettes Smokeless Tobacco: Never Alcohol Use Standard Drinks/Week [...] Info) Description 02/26/2025 11:00 AM CDT Appointment [facility] [address] [place] [phone] Judy Bess PA [address] [place] [address] 03/28/2025 2:00 PM CDT Office Visit [facility] Sleep Medicine Professional Office Building [address] [place] [address] [phone] Lizeth Barreto MD [address] [place] [phone] 06/26/2025 1:10 PM REPLENISHMENT MERCHANDISING ASSOCIATE Office Visit [facility] Gastroenterology [address] [place] [address] [place] [phone] Kiya Anguiano NP [address] [place] [address] [place] [address] 07/03/2025 11:10 AM REPLENISHMENT MERCHANDISING ASSOCIATE Office Visit [facility] Pulmonology [address] [place] [address] [phone] Tita Graves NP [address] [place] [phone] documented as of this encounter Visit Diagnoses Diagnosis Chronic obstructive pulmonary disease, unspecified COPD type (HCC)- Primary documented in this encounter Additional Health Concerns Infection Onset Date Last Indicated Resolved Time R/O COVID-19 09/01/2021 09/01/2021 09/01/2021 9:10 PM REPLENISHMENT MERCHANDISING ASSOCIATE R/O C. difficile 06/09/2023 06/14/2023 06/14/2023 8:50 PM CDT R/O GI Infection 06/13/2023 06/13/2023 06/13/2023 5:51 PM CDT C. difficile Carrier 06/14/2023 06/14/2023 023 12:21 AM REPLENISHMENT MERCHANDISING ASSOCIATE R/O C. difficile 06/28/2023 06/30/2023 06/30/2023 3:55 PM REPLENISHMENT MERCHANDISING ASSOCIATE R/O C. difficile 08/04/2023 08/05/2023 08/05/2023 8:55 PM REPLENISHMENT MERCHANDISING ASSOCIATE C. difficile Carrier 08/05/2023 08/05/2023 024 12:21 AM REPLENISHMENT MERCHANDISING ASSOCIATE R/O C. difficile 08/19/2023 08/22/2023 08/22/2023 4:14 PM REPLENISHMENT MERCHANDISING ASSOCIATE R/O COVID-19 08/30/2023 08/30/2023 08/30/2023 4:19 PM REPLENISHMENT MERCHANDISING ASSOCIATE R/O C. difficile 02/23/2024 11/21/2024 02/28/2024 12:21 AM CDT R/O C. difficile 10/24/2024 11/21/2024 10/29/2024 12:21 AM CDT documented as of this encounter Care Teams Linen Keeper Relationship Specialty Start Date End Date Julius Erazo II, MD [address] [place] [address] PCP - General Clipper Automatic 02/02/17 documented as of this encounter
--- OUTSIDE RECORDS SUMMARY | 2025-01-28 17:19 | XMS_ITS | Encounter Summary ---
Author Organization [facility] Address [address] [place] [address] Care Team Providers Care Scene Shifter Name Role Phone Kacey SHIN MD, Julius Avendaño Primary Care Provider [phone] Encounter Details Date Type Department Care Team (Late st Contact Info) Description 10/25/2023 Orders Only [address] [phone] Fabby Mejia, PRE WAVE ASSEMBLER Social History Tobacco Use Types Packs/Day Years [...] Info) Description 02/26/2025 11:00 AM CDT Appointment [facility] [address] [place] [phone] Judy Bess PA [address] [place] [address] 03/28/2025 2:00 PM CDT Office Visit [facility] Sleep Medicine Professional Office Building [address] [place] [phone] Lizeth Barreto MD [address] [facility], [address] [address] 06/26/2025 1:10 PM WARP TYING MACHINE TENDER Office Visit [facility] Gastroenterology [address] [place] [address] Kiya Anguiano NP [address] [place] [address] [place] [address] 07/03/2025 11:10 AM WARP TYING MACHINE TENDER Office Visit [facility] Pulmonology [address] [place] [phone] Tita Graves NP [address] [place] [address] documented as of this encounter Visit Diagnoses Not on filedocumented in this encounter Additional Health Concerns Infection Onset Date Last Indicated Resolved Time R/O C. difficile 02/23/2024 11/21/2024 02/28/2024 12:21 AM CDT R/O C. difficile 10/24/2024 11/21/2024 10/29/2024 12:21 AM CDT documented as of this encounter Care Teams Scene Shifter Relationship Specialty Start Date End Date Julius Erazo II, MD [address] [place] [address] PCP - General Chip Mucker 02/02/17 documented as of this encounter
--- OUTSIDE RECORDS SUMMARY | 2025-01-28 17:19 | XMS_ITS | Encounter Summary ---
Author Organization [facility] Address [address] [place] [address] Care Team Providers Care Decorator Consultant Name Role Phone Julius Erazo MD Primary Care Provider [phone] Reason for Referral * Consultation (Routine) - Receiving Facility Will Schedule Specialty Diagnoses / Procedures Referred By Sarah davila Referred To Contact Otolaryngology Diagnoses Sensorineural hearing loss (SNHL) of both ears Ronnie Carpio MD [address] [facility] [place] [address] Phone: tel: fax: Referral ID Status Reason Start Date Expiration Date Visits Requested Visits Authorized [id number] Receiving Facility Will Schedule Specialty Services Required 05/07/2024 1 1 Encounter Details Date Type Department Care Team (Late st Contact Info) Description 05/07/2024 Orders Only [facility] [address], [address] [place] [address] Dasia rTejo LPN Sensorineural hearing loss (SNHL) of both ears (Primary Dx) Social History Tobacco Use Types Packs/Day Years Used Date Smoking Tobacco: Former Cigarettes Q uit: 2003 Smokeless Tobacco: Never Alcohol Use Standard Drinks/Week Comments Never 0 (1 standard drink = 0.6 oz pur e alcohol) PHQ-2 Answer Date Recorded PHQ-2 Score 0 02/27/2024 Sex and Gender Information Value Date Recorded Sex Assigned at Not on file Legal Sex Male 5:56 PM CDT Gender Identity Not on file Sexual Orientation Not on file documented as of this encounter Plan of Treatment Upcoming Encounters Date Type Department Care Team (Late st Contact Info) Description 09/04/2025 11:30 AM COLLABORATIVE TEACHER Appointment [facility] - Echo/Vascular Ultrasound [address] [place] [address] 09/10/2025 1:00 PM COLLABORATIVE TEACHER Office Visit [facility] [address] [facility], [address] [place] [address] Russ Muñoz MD [facility] [place] [address] Scheduled Referrals Name Type Priority Associated Diagnoses Order Schedule Ambulatory referral to ENT Outpatient Referral Routine Sensorineural hearing loss (SNHL) of both ears 1 Occurrences starting 05/07/2024 until 05/07/2025 documented as of this encounter Visit Diagnoses Diagnosis Sensorineural hearing loss (SNHL) of both ears- Primary documented in this encounter Additional Health Concerns Assessment Noted Time A fall risk assessment has been complete d for the patient 03/02/2024 1:12 PM CDT documented as of this encounter Care Teams Decorator Consultant Relationship Specialty Start Date End Date Julius Erazo MD [address] [place] [phone] PCP - General Internal Medicine 02/27/24 documented as of this encounter
--- OUTSIDE RECORDS SUMMARY | 2025-01-28 17:19 | XMS_ITS | Encounter Summary ---
Author Organization [facility] Healthcare Address [address] [place] [address] Care Team Providers Care Health Plan Specialist Name Role Phone Aren Morales MD Primary Care Provider + Reason for Visit * Auth/Cert (Routine) Specialty Diagnoses / Procedures Referred By Contac t Referred To Contact Diagnoses Sensorineural hearing loss (SNHL) of both ears SNHL bilateral Procedures VA COCHLEAR DEVICE IMPLANTATION W/WO MASTOIDECTOMY VA COCHLEAR DEVICE IMPLANTATION W/WO MASTOIDECTOMY IMPLANTATION COCHLEAR DEVICE UNILATERAL. Aren Lazo MD [address] [place] [address] Phone: tel: fax: Referral ID Status Reason Start Date Expiration Date Visits Re quested Visits Authorized [id number] 11/16/2024 1 1 Encounter Details Date Type Department Care Team (Latest Contact Info) Description 01/28/2025 5:43 AM CDT - 01/28/2025 10:17 AM CDT Hospital Encounter [facility] Surgery Center Operating Room [address] [place] [id number] Aren Lazo MD [address] [place] [address] Sensorineural hearing loss, bilateral [H90.3] (Primary Dx) Discharge Disposition: Discharge to home or self care Social History Tobacco Use Types Packs/Day Years Used Date Smoking Tobacco: Former Cigarettes Q uit: 2007 Smokeless Tobacco: Never Tobacco Cessation:Counseling Given: Not Answered AUDIT-C Answer Date Recorded Q1: How often [...] on file Legal Sex Male 6:09 AM CENTER REP Gender Identity Not on file Sexual Orientation Not on file documented as of this encounter Last Filed Vital Signs Vital Sign Reading Time Taken Comments Blood Pressure 131/63 01/28/2025 10:14 AM CDT Pulse 75 01/28/2025 10:14 AM CDT Temperature 36.7 C (98.1 F) 01/28/2025 9:21 AM CDT Respiratory Rate 20 01/28/2025 10:1 4 AM CDT Oxygen Saturation 94% 01/28/2025 10: 14 AM CDT Inhaled Oxygen Concentration - - Weight 91.9 kg (202 lb 11.2 oz) 01/28/2025 6:03 AM CDT Height 177.8 cm (5' 10) 01/28/2025 6:03 AM CDT Body Mass Index 29.08 01/28/2025 6:03 AM CDT documented in this encounter Functional Status * Audit-C Score Answer Date of Assessment Author 0 01/28/2025 5:50 AM CDT Verito Camacho RN * Question Answer Date of Assessment Author Q1: How often do you have a drink containing alcohol? Never 01/28/2025 5:50 AM FABRICIOT Verito Camacho RN Q2: How many drinks containing alcohol do you have on a typical day when you are drinking? Patient does not drink 01/28/2025 5:50 AM FABRICIOT Verito Camacho RN Q3: How often do you have six or more drinks on one occasion? Never 01/28/2025 5:50 AM CDT Verito Camacho RN documented as of this encounter Discharge Instructions * Discharge Instructions* Eugenia Reaves MD - 01/28/2025 8:38 AM CDT PATIENT INSTRUCTION SHEET FOR AFTER SURGERY COCHLEAR IMPLANT A cochlear implant bypasses the damaged parts of the inner ear by directly stimulating the auditorynerve. A cochlear implant is an electronic device that is surgically implanted with an electrode that goes into the inner ear. This implant works in conjunction with external equipment worn behind the ear. Although cochlear implants do not restore natural hearing, most individuals with cochlear implants can achieve significant gains in sound awareness and speech understanding. Cochlear implants become an option when someone gets limited benefit from hearing aids. If there are no medical contraindications candidates of any age may be implanted. This is an outpatient procedure, meaning you will go home the same day. Recovery from surgery generally is 3-7 days. We wait 2-3 weeks before activating the device due to swelling. When the device isactivated, you will work with the rug sizer on hearing rehabilitation. This program is time intensive at first and these appointments should be coordinated with your cochlear implant rug sizer. Your surgeon may want to see you before your device gets activated. If necessary those appointments can also be coordinated. Medications Pain medication: In an effort to reduce your need for post-operative opiates we recommend 650 mg ofacetaminophen in combination with 600-800 mg of ibuprofen every 6 hrs for the first 3 days following your procedure. If you require further pain management you may take your pain medication as prescribed. Do not drive or operate machinery while using narcotics. Avoid taking on an empty stomach. Antibiotics: Start the antibiotic the evening you go home from surgery and take until the prescription is finished. Avoid taking on an empty stomach. Steroid: You will be given a steroid pack (methylprednisolone - Medrol dose pack). Please start it the morning after your surgery and use it as directed. Normal side effects of steroids may include anxiety and insomnia, taking the steroid in the morning may be helpful. If you experience elevated blood sugars, or joint pain please stop the medication and contact our office. After-Care Remove the ear dressing the day after your surgery. Please keep the ear shield as it may provide more comfort and protection while you sleep for the first week after surgery. If there is some bleeding it can be cleaned gently cleaned with hydrogen peroxide. Keep the incision dry when showering or bathing for one week after surgery. Do not pick, pull, rub or scratch your incision. Always wash your hands before and after contact with incision. Your sutures are dissolvable and will begin to fall out in 1-2 weeks. 1 week after surgery apply Vaseline daily to the incision until your follow up visit. If you wear glasses, either remove the arm on the operated side or make certain that it does not rest on the incision behind your ear. Avoid lying on the operative ear for 1 week after surgery. No strenuous activity for 2 weeks, including no heavy lifting over 10 lbs. Do not travel on an airplane for 4 weeks, unless otherwise approved. Avoid situations where you might have to make sudden head movements. Do not blow your nose or sneeze with your mouth closed. Try not to blow your nose for at least 1 week after surgery. If you use CPAP, ask your surgeon about when it is safe to resume its use. Call the office if you have a temperature over 100.3, your incision is red, swollen or coming apart, you have excessive drainage from your ear or incision, or you have clear fluid draining from your ear, incision or nose. Do not wait until your next office appointment to report any problems or questions. The office number is [phone] and the after-hours exchange is [phone]. documented in this encounter Medications at Time of Discharge amLODIPine (NORVASC) 2.5 mg tabletIndications:hyp ertension Take 1 tablet (2.5 mg total) by mouth every morning 4 amoxicillin-clavulana te (AUGMENTIN) 875-125 mg per tablet Take 1 tablet (875 mg of amoxicillin total) by mouth 2 (two) times a day for 5 days 10 tablet 5 02/03/20 25 azaTHIOprine (IMURAN) 50 mg tabletIndications:Ulc erative Colitis Take 1.5 tablets (75 mg total) by mouth nightly 7 calcium carbonate-vitamin D3 1500 mg (600 mg elemental) -200 units per tabletIndications:Hyp ocalcemia Prevention,Prevention of Vitamin D Deficiency Take 1 tablet by mouth nightly clopidogreL (PLAVIX) 75 mg tabletIndications:Thr ombosis Prevention after PCI,stent and bypass Take 1 tablet (75 mg total) by mouth every morning 4 cycloSPORINE (RESTASIS) 0.05 % ophthalmic emulsionIndications:d ry eye Inject 1 drop into the eye every 12 (twelve) hours donepeziL (ARICEPT) 10 mg tabletIndications:mem ory Take 1 tablet (10 mg total) by mouth nightly 5 dorzolamide-timoloL (COSOPT) 22.3-6.8 mg/mL ophthalmic solutionIndications:o pen angle glaucoma Administer 1 drop into both eyes 2 (two) times a day [address] (CYMBALTA) 60 mg capsuleIndications:An xiety with Depression Take 1 capsule (60 mg total) by mouth every morning 5 EPINEPHrine 0.3 mg/0.3 mL auto-injection syringe Inject 0.3 mL (0.3 mg total) into the muscle as instructed as needed for anaphylaxis 5 fenofibrate nanocrystallized (TRICOR) 145 mg tabletIndications:hyp erlipidemia Take 1 tablet (145 mg total) by mouth every morning 4 herbal drugs tabletIndications:sup plement Take 1 tablet by mouth nightly Prevagen HYDROcodone-acetamino phen (NORCO) 5-325 mg per tabletIndications:Dylan n Take 1 tablet by mouth every 6 (six) hours as needed for pain for up to 15 doses 15 tablet 5 latanoprost (XALATAN) 0.005 % ophthalmic solutionIndications:o pen angle glaucoma Administer 1 drop into both eyes nightly medical supply, miscellaneous (MISCELLANEOUS MEDICAL SUPPLY MISC)Indications:low O2 level Administer 2 L into affected nostril(s) nightly Home Oxygen 2L/NC memantine (NAMENDA) 10 mg tabletIndications:Mod 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 Take 1 tablet (10 mg total) by mouth every morning 5 mesalamine (LIALDA) 1.2 gram EC tabletIndications:Ulc erative Colitis Take 4 tablets (4.8 g total) by mouth every morning 4 methylPREDNISolone (MEDROL DOSEPACK) 4 mg Dosepack Take as directed on package 21 each 5 02/04/20 25 olmesartan (BENICAR) 5 mg tabletIndications:hyp ertension Take 2 tablets (10 mg total) by mouth nightly rosuvastatin (CRESTOR) 20 mg tabletIndications:hyp erlipidemia Take 1 tablet (20 mg total) by mouth nightly Spiriva Respimat 1.25 mcg/actuation inhalerIndications:Ma intenance Therapy for Asthma Inhale 2 puffs every morning traZODone (DESYREL) 50 mg tabletIndications:ins omnia associated with depression Take 2 tablets (100 mg total) by mouth nightly vitamin B complex with vitamin C tabletIndications:Vit simeon Deficiency Prevention Take 1 tablet by mouth nightly documented as of this encounter Ordered Prescriptions Prescription Sig Dispense Quantity Refills Last Filled Start Date End Date HYDROcodone-acetam inophen (NORCO) 5-325 mg per tabletIndications: Pain Take 1 tablet by mouth every 6 (six) hours as needed for pain for up to 15 doses 15 tablet 01/28/2025 amoxicillin-clavul anate (AUGMENTIN) 875-125 mg per tablet Take 1 tablet (875 mg of amoxicillin total) by mouth 2 (two) times a day for 5 days 10 tablet 01/28/2025 5 methylPREDNISolone (MEDROL DOSEPACK) 4 mg Dosepack Take as directed on package 21 each 01/28/2025 5 documented in this encounter Discharge Disposition Disposition Code Departure Means Destination Comment s Discharge to home or self care documented in this encounter H&P Notes * Eugenia Reaves MD - 01/28/2025 6:59 AM CDT I have reviewed the H&P, examined the patient, and endorse the findings as written. Plan of Care : Based on the above findings, I consider Narayan Morse to be an acceptable risk for : Procedure(s): IMPLANTATION COCHLEAR DEVICE UNILATERAL. Cosigned by Aren Lazo MD at 01/28/2025 7:26 AM CDT Source Note - Arsenio Hui NP - 01/16/2025 4:48 PM CDT Images from the original note were not included. Center for Preoperative Assessment and Planning Preoperative Evaluation Record Evaluation type/location: TPAP from [facility] Planned procedure site: [facility] Date: 01/16/25 NOTE: This note represents [...] s/p CABG x4 2006 then [place] 10/2021, , with hearing loss presents for implantation cochlear [...] degree AV block) - bradycardia. Pertinent negatives: [place] ; valvular heart disease; atrial fibrillation; pacemaker/ICD; [...] by telephone and in writing sent via [email or web address] mail. Patient verbalized understanding of instructions. Blood [...] Please call the CPAP chart room clinician ([phone]) with any questions or to discuss alternative management plans. The patient is currently scheduled for their procedure at [facility]. The case was discussed amongst myself and CPAP attending Dr. Garcia due to 2L O2 at night, CAD, COPD. After discussion, it is felt that the patient is an appropriate candidate for the procedure at [facility]. Please note, the patient is on donepezil [...] Laterality Date CARDIAC STENT PLACEMENT 10/29/2021 COLONOSCOPY 2018 COLONOSCOPY 2019 COLONOSCOPY 2021 CORONARY ARTERY BYPASS GRAFT 2007 4 vessel SINUS SURGERY x3 VASECTOMY 1975 Allergies Allergen Reactions Hornet Venom Anaphylaxis and Swelling Venom-Honey Bee Other (See comments) Med List Status: Nurse Complete Set By: Michelle Galicia, RN at 01/11/2025 4:02 PM Taking? Last Dose Start Date End Date Provider amLODIPine (NORVASC) 2.5 mg tablet 01/11/2025 03/16/24 -- Provider, MD Rose Mary azaTHIOprine (IMURAN) 50 mg tablet 01/10/2025 10/05/16 -- Provider, MD Rose Mary calcium carbonate-vitamin D3 1500 mg (600 mg elemental) -200 units per tablet 01/10/2025 -- -- Provider, MD Rose Mary clopidogreL (PLAVIX) 75 mg tablet 01/11/2025 12/05/23 -- Provider, MD Rose Mary cycloSPORINE (RESTASIS) 0.05 % ophthalmic emulsion 01/11/2025 [...] Mary herbal drugs tablet 01/10/2025 -- -- Provider, MD Rose Mary latanoprost (XALATAN) 0.005 % ophthalmic solution 01/10/2025 -- -- Provider, HistoricalMD medical supply, miscellaneous (MISCELLANEOUS MEDICAL SUPPLY MISC) 01/11/2025 -- -- Provider, HistoricalMD memantine (NAMENDA) 10 mg tablet 01/11/2025 12/13/24 -- Provider, MD Rose Mary mesalamine (LIALDA) 1.2 gram EC tablet 01/11/2025 07/19/14 -- Provider, MD Rose Mary olmesartan (BENICAR) 5 mg tablet 01/10/2025 -- -- Provider, MD Rose Mary rosuvastatin (CRESTOR) 20 mg tablet 01/10/2025 -- -- ProviderRose Mary MD Spiriva Respimat 1.25 mcg/actuation inhaler 01/11/2025 -- -- Rose Mary Snider MD traZODone (DESYREL) 50 mg tablet 01/10/2025 -- -- Rose Mary Snider MD vitamin B complex with vitamin C tablet 01/10/2025 -- -- ProviderRose Mary MD No current facility-administered medications for this [...] solution medical supply, miscellaneous (MISCELLANEOUS MEDICAL SUPPLY MIS) memantine (NAMENDA) 10 mg tablet mesalamine (LIALDA) [...] last 30 days. Carlos index score: 95 documented in this encounter Miscellaneous Notes * Op Note - Aren Lazo MD - 01/28/2025 7:58 AM CDT Images from the original note were not included. Operative Note Patient: Narayan Morse : 1940 DATE OF PROCEDURE: 01/28/2025 PREOPERATIVE DIAGNOSIS: Bilateral Sensorineural Hearing Loss POSTOPERATIVE DIAGNOSIS: same PROCEDURES: 1) right side Mastoidectomy with cochlear implantation (CPT 96668) SURGEON: Aren Lazo MD RESIDENT PHYSICIAN: Eugenia Reaves MD ANESTHESIA: General ESTIMATED BLOOD LOSS: 5 mL. COMPLICATIONS: None. CONDITION: Stable to the post-anesthesia care unit. INDICATIONS FOR PROCEDURE: Narayan Morse is a pleasant 84 y.o.-year-old male with significant sensorineural hearing loss who no longer receives enough benefit with hearing aids. INTRAOPERATIVE FINDINGS: Device: Cochlear 632 Chorda tympani nerve: Intact Cochleostomy: Extended RW Depth of insertion: Full Normal impedance and telemetry testing. Skull X-ray: appropriate placement without tip-rollover PROCEDURE IN DETAIL: The patient was appropriately identified in the preoperative holding area. Again, the risks, benefits and alternatives were reviewed with the patient and/or family who chose to proceed with surgery. They were placed in supine position on the operating table and general anesthesia was induced without complication. Facial nerve monitoring electrodes were placed in the right side patient's orbicularis linda and orbicularis oculi muscle in the standard manner with standard placement of the ground electrode. The electrodes were connected to the facial nerve monitoring system prior to beginning the case. The system was tested prior to beginning the case as well as throughout the case to ensure there were no malfunctions. A time out was performed to verify the correct patient, date of , procedure, side, and allergies. Lidocaine 1% with epinephrine 1:100,000 was then injected into the postauricular incision site. The patient was then prepped and draped in the usual sterile fashion. A postauricular incision was made through the skin and subcutaneous tissues. An extended anteriorlybased mastoid periosteal flap was elevated anteriorly towards the posterior canal wall. A subpericranial pocket we developed posterosuperiorly for the proposed placement of the radiation control technician/stimulator. The operating microscope was introduced into the surgical field. The mastoidectomy portion of the procedure was then performed. During this dissection, the middle fossa plate and the sigmoid sinus wereidentified and preserved. The posterior aspect of the external auditory canal was thinned. The horizontal semicircular canal was identified as was the incus. The descending segment of the facial nerve and chorda tympani nerve were identified and the middle ear opened. The round window niche overhang was removed revealing the round window membrane.The device was secured in its subpericranial pocket with 3-0 Monocryl. The round window membrane was fenestrated utilizing a 1mm drill for an extendedround window. The electrode was then inserted in the standard manner. There was full insertion without any complications. Decadron was placed at the round window. A small piece of temporalis fascia was placed around the electrode at the level of the round window. The Palva flap was then closed using 3-0 Monocryl. The postauricular incision was also closed using 3-0 Monocryl. Electrocochleography for the purpose of obtaining impedances and neural response telemetry. This revealed normal impedances and normal and active neural responses. A plane x-ray was obtained, which demonstrated the implant to be in appropriate position within the cochlea. A mastoid compression dressing was placed. At that point in time, care of the patient was returned to the Anesthesia staff who successfully reversed general anesthesia without complication. The patient awoke and was transported to the post-anesthesia care unit in stable condition. There were no immediate complications. I was present and participated in all portions of the procedure. Aren Lazo M.D. Director Of Social Media Marketing Otology & Neurotology I Department of Otolaryngology [facility] Clinics: ; Client Engagement Specialist: E-mail: [email or web address] Pre-Procedure Instructions - Arsenio Hui NP - 01/16/2025 5:01 PM CDT Center for Preoperative Assessment and Planning CPAP Clinic Location: [facility] The night before your surgery: * Do not eat anything after midnight the night before your procedure. The morning of your surgery: * You may have clear liquids on your surgery day. You must stop drinking two hours before you arrive to the surgery facility. Acceptable clear liquids include water, clear sports drinks, black coffee, tea, or clear soda. DO NOT drink any milk, creamer, or alcohol. * Your surgeon's office may have provided additional instructions or restrictions. Please follow those instructions. * You may brush your teeth and rinse your mouth out. * Do not glue your dentures. * Do not wear jewelry, body piercings, makeup, hairpins, false eyelashes or contact lenses to the hospital. * Leave any valuables at home or with your family. Outpatient Surgery: * You must have a responsible adult drive you home and stay with you for 24 hours after your surgery * You cannot be alone at home or in a hotel * Please call your surgeon's office if you do not have someone to drive you home and/or stay with you after surgery * Please bring any items you may need to spend the night in the hospital. Sometimes patients need to be cared for in the hospital overnight. Instructions For Your Medications: Pre-Surgery Instructions: Medication Instructions amLODIPine (NORVASC) 2.5 mg tablet Take morning of surgery azaTHIOprine (IMURAN) 50 mg tablet Take morning of surgery calcium carbonate-vitamin D3 1500 mg (600 mg elemental) -200 units per tablet Don't take on day of surgery clopidogreL (PLAVIX) 75 mg tablet Stop taking 1 week prior to surgery Start Aspirin 81mg daily during the time you are holding Plavix. cycloSPORINE (RESTASIS) 0.05 % ophthalmic emulsion Take on day of surgery if needed donepeziL (ARICEPT) 10 mg tablet Take the evening prior to surgery dorzolamide-timoloL (COSOPT) 22.3-6.8 mg/mL ophthalmic solution Take on day of surgery if needed DULoxetine DR (CYMBALTA) 60 mg capsule Take morning of surgery EPINEPHrine 0.3 mg/0.3 mL auto-injection syringe Take on day of surgery if needed fenofibrate nanocrystallized (TRICOR) 145 mg tablet Take morning of surgery Prevagen Stop taking 7-14 days prior to surgery latanoprost (XALATAN) 0.005 % ophthalmic solution Take on day of surgery if needed memantine (NAMENDA) 10 mg tablet Take morning of surgery mesalamine (LIALDA) 1.2 gram EC tablet Take morning of surgery olmesartan (BENICAR) 5 mg tablet Do not take the night before surgery rosuvastatin (CRESTOR) 20 mg tablet Take the evening prior to surgery Spiriva Respimat 1.25 mcg/actuation inhaler Take morning of surgery traZODone (DESYREL) 50 mg tablet Take the evening prior to surgery vitamin B complex with vitamin C tablet Don't take on day of surgery General Instructions For Medications: * Stop all of these medications 7 days prior to your surgery: excedrin, motrin, advil, ibuprofen, aleve, naproxen, meloxicam For medications that you are instructed to take on the morning of surgery, take the medications with a few sips of water. Stop all of these medications 7-14 days prior to your surgery: Vitamin E, Herbal medicines, Diet Pills If you take aspirin, do not stop taking it unless you were instructed to do so. If you use inhalers, please bring them with you on the day of your procedure. If you have pain, you may take tylenol (acetaminophen). Do not take more than 6 tablets or 3000 mg (3 g) within a 24 period. Call your surgeon and the CPAP clinic if any of the following happens before surgery: Any changes in your health You have a fever You have any signs of an infection (chest, urinary tract or tooth) You have been to the Emergency Room or were in the hospital You have started taking any new medications If laboratory testing was completed during your visit, we will only contact you regarding any results that require you to take additional action prior to your planned procedure. * Perioperative Nursing Note - Michelle Galicia RN - 01/11/2025 4:16 PM CDT Center for Preoperative Assessment and Planning Perioperative Nursing Note PAP Modalities - [facility]: Telephone Preoperative Evaluation ([facility]) - TELEPHONE ONLY, NO PHYSICAL EXAM Date: 01/11/25 This assessment was completed with the patient. Vitals: 01/11/25 1605 Weight: 94.3 kg (208 lb) Height: 179.1 cm (5' 10.5) CHEST CIRCUMFERENCE: NA Social History Tobacco Use Smoking Status Former Current packs/day: 0.00 Types: Cigarettes Quit date: 2006 Years since quittin.4 Smokeless Tobacco Never Substance and Sexual Activity Drug Use Never Alcohol Use Q1: How often do you have a drink containing alcohol?: Never Q2: How many drinks containing alcohol do you have on a typical day when you are drinking?: Patientdoes not drink Q3: How often do you have six or more drinks on one occasion?: Never Outpatient Medications Marked as Taking for the 01/28/25 encounter (Hospital Encounter) Medication Sig Dispense Refill amLODIPine (NORVASC) 2.5 mg tablet Take 1 tablet (2.5 mg total) by mouth every morning azaTHIOprine (IMURAN) 50 mg tablet Take 1.5 tablets (75 mg total) by mouth nightly calcium carbonate-vitamin D3 1500 mg (600 mg elemental) -200 units per tablet Take 1 tablet by mouth nightly clopidogreL (PLAVIX) 75 mg tablet Take 1 tablet (75 mg total) by mouth every morning cycloSPORINE (RESTASIS) 0.05 % ophthalmic emulsion Inject 1 drop into the eye every 12 (twelve) hours donepeziL (ARICEPT) 10 mg tablet Take 1 tablet (10 mg total) by mouth nightly dorzolamide-timoloL (COSOPT) 22.3-6.8 mg/mL ophthalmic solution Administer 1 drop into both eyes 2 (two) times a day DULoxetine DR (CYMBALTA) 60 mg capsule Take 1 capsule (60 mg total) by mouth every morning EPINEPHrine 0.3 mg/0.3 mL auto-injection syringe Inject 0.3 mL (0.3 mg total) into the muscle as instructed as needed for anaphylaxis fenofibrate nanocrystallized (TRICOR) 145 mg tablet Take 1 tablet (145 mg total) by mouth every morning herbal drugs tablet Take 1 tablet by mouth nightly Prevagen latanoprost (XALATAN) 0.005 % ophthalmic solution Administer 1 drop into both eyes nightly medical supply, miscellaneous (MISCELLANEOUS MEDICAL SUPPLY MISC) Administer 2 L into affected nostril(s) nightly Home Oxygen 2L/NC memantine (NAMENDA) 10 mg tablet Take 1 tablet (10 mg total) by mouth every morning mesalamine (LIALDA) 1.2 gram EC tablet Take 4 tablets (4.8 g total) by mouth every morning olmesartan (BENICAR) 5 mg tablet Take 2 tablets (10 mg total) by mouth nightly rosuvastatin (CRESTOR) 20 mg tablet Take 1 tablet (20 mg total) by mouth nightly Spiriva Respimat 1.25 mcg/actuation inhaler Inhale 2 puffs every morning traZODone (DESYREL) 50 mg tablet Take 2 tablets (100 mg total) by mouth nightly vitamin B complex with vitamin C tablet Take 1 tablet by mouth nightly [DISCONTINUED] folic acid (FOLVITE) 1 mg tablet Take 1 tablet (1,000 mcg total) by mouth daily [DISCONTINUED] methotrexate 2.5 mg tablet Take 1 tablet (2.5 mg total) by mouth every 7 days [DISCONTINUED] vitamin B complex capsule Take 1 capsule by mouth nightly With vitamin c Implants No active implants to display in this view. SKIN Piercings Remaining: No Wound (LDAs) Type of Wound (LDA): (Denies) SCREENINGS Carlos index score: 95 Travel/Exposure Screening: Travel Screening Have you traveled outside the [place] in the last 6 months?: No Exposure Screening Have you been exposed to anyone who is sick in the last 30 days?: No Have you been exposed to or tested positive for COVID-19 within the last 10 days?: No Infectious Disease Screening Are you having any of the following:: None PATIENT CARE PLANNING Advance Directives (For Healthcare) Have you reviewed your Advance Directive and is it valid for this stay?: Yes Advance Directive: Patient has advance directive, copy not in chart Advance Directive not in Chart: Copy requested from other (Comment) (Patient) Information Provided on Healthcare Directives: No Assistive Devices/DME: Dentures lower, Dentures upper, Eyeglasses, Oxygen Hearing - Right Ear: Hearing aid Hearing - Left Ear: Hearing aid Discharge Planning Type of Residence: Private residence Living Arrangements: Spouse/significant other Support Systems: Spouse/significant other Patient expects to be discharged to: 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 General Information Discussed with Patient: Surgery location provided to patient. Arrival time and surgical time will be provided to the patient by their surgeon. You should wear clothing that is clean, loose, comfortable and easy to get in and out of on the dayof surgery. You should remove nail coverings, artificial nails and nail lithuanian prior to the day of surgery. This is to lower your risk of infection and to allow the day of surgery team to monitor your oxygen levels. You should leave your valuables and any jewelry at home. No metal or piercings are allowed in the operating room. You should bring your insurance card, a photo ID (example: [employer] Developer's License) and a method of payment for any insurance copay, deductible or copay for discharge medications. You should bring a complete, up-to-date, list of all your medications on the day of surgery, including any over the counter medications or supplements you may take. Please note on your medication list, the last date & time you took each medication. The healthcare team, on the day of surgery, will ask for this information. You should bring your Advanced Directive and/or Living Will with you on the day of surgery if you have not verified a copy is already in your Epic Chart. If you are having surgery at [facility], please arrive on the day of surgery with the name and phone number of your local 24 hour pharmacy. Due to evening discharges, your routine pharmacy may be closed. In order to obtain your prescriptions that evening, your surgeon may need to send prescriptions to this pharmacy or have you take prescriptions to this pharmacy when you are discharged. Without this information, you may not be able to obtain your prescriptions that evening. Eye Surgery Process for Patients: N/A A Guide for Patients Having Surgery: Your Pathway to Excellent Care OUR GOAL IS TO PROVIDE YOU WITH EXCELLENT CARE Use this guide to learn about what you can do before, during and after surgery to help your recovery. You are the most important person on your health care team. By becoming informed and involved, you can contribute to the success of your surgery. If your surgeon's directions are different than those in this guide, talk with your nurse or surgeon to confirm the information. It is important that you understand how to take care of yourself at home after surgery. Be sure to bring this guide with you on the day of surgery and take it home with you after surgery. Write down questions for your nurse or surgeon on the last page of this booklet. Important pages to be reviewed BEFORE surgery: Page 1: QR codes for Surgery Center maps Page 3: Types of Anesthesia Page 5: Tips for the day & night before surgery Page 6: When to stop eating BEFORE surgery and examples of clear liquids Page 7-10: Preventing Infection: Chlorhexidine Gluconate (CHG) Bathing Instructions You may access A Guide for Patients Having Surgery: Your Pathway to Excellent Care by the followinglink: [email or web address] How To Prepare Your Skin For Surgery Below is the Pre-Surgical Bathing Protocol you should follow for your surgery. If your surgeon provides you different bathing instructions, please follow your surgeon's orders. 2-Day CHG Bathing Protocol (no nasal ointment): PREVENTING INFECTION (DECOLONIZATION): Decolonization is the use of a topical antiseptic soap to remove bacteria (germs) from the skin's surface. Antiseptic soap: Chlorhexidine gluconate or CHG (brand name: Hibiclens??) Before surgery, your entire body must be thoroughly cleaned. CHG helps to reduce the bacteria on your skin. You may be given one or more bottles of CHG or you may be asked to obtain from your preferred pharmacy. Be sure to ask your pharmacist if you need help finding this product. 2-Day CHG Bathing Protocol The Evening Before Surgery: Take a shower with Antiseptic soap (CHG). Follow the steps for Showering with Antiseptic Soap (CHG) below. Change all linens on your bed so you are sleeping in clean fresh sheets and pillowcases. Remove nail coverings, artificial nails and nail lithuanian. The Morning of Surgery: Take a shower with Antiseptic soap (CHG). Follow the steps for Showering with Antiseptic Soap (CHG) below. Put clean clothes on after you shower. Instructions on SHOWERING WITH ANTISEPTIC SOAP (CHG) What You Need For Each Shower 60 mL (?? cup) of CHG 2 clean washcloths CHG Bathing Instructions First, shampoo and rinse your hair with your own shampoo (no conditioners). Do this so the antiseptic soap isn't washed off by your shampoo. Wash face with warm water. Turn off shower and stand away from the water. Use 2 clean washcloths to apply the antiseptic soap to all areas as described below: Pour 30 mL (1/8 cup) of CHG on washcloth #1: Using washcloth- start at jawline and firmly massage the soap into the skin in a circular motion to clean neck, shoulders, chest, back, both armpits, arms, hands and abdomen. Finish with legs and feet. Pour 30 mL (1/8 cup) of CHG on washcloth #2: Using washcloth- firmly massage the soap into the skinin a circular motion to clean groin area, perineum and buttocks. (Do not use CHG on genital area.) Mondragon Points: The CHG antiseptic soap will not bubble or lather very much. If you get soap in your eyes, ears or mouth, rinse well with cool water. When finished, leave the soap on your skin for 2 minutes before rinsing. Dry off with a clean fresh towel. Wear clean clothes or pajamas to sleep in. After showering DO NOT put on deodorant, hair products or conditioners, lotions or creams, powders,Vaseline or any non-essential products. If you cannot reach the surgical site, such as the back, please have someone help you. Shaving: You may shave your face, legs and underarms during your evening shower before you apply the CHG antiseptic soap. Be careful not to cut or ervin your skin. Avoid shaving on the day of surgery. If you have questions, please call the [facility] Staff at [phone], Tuesday-Tuesday 8am-4:30pm. All patients should read the below section: Information on [facility]: Please view [email or web address] (Patient & Visitor Information) for additional details regarding Advanced Directive forms, AWARE, directions, parking information, lodging, Internet access, dining and more. Information on [facility] or [facility] ([facility]): Please view [email or web address] (Patient and Visitor Information) for parking, directions, lodging and more. For MyChart information, to activate account or password recovery, please go to [email or web address] or call [phone] (toll-free: [phone]), Tue- Tuesday 8am-5pm. Information for Suicide Prevention: National Suicide Prevention Lifeline (3-823- 690-TALK (5632)) or call or text 245. Chat resources: Tapshot, [email or web address]. Surgery Times: For patients having surgery @ [facility] or [facility] ([facility]), if your surgeon's office has not notified you of your surgery time by NOON THE BUSINESS DAY BEFORE your surgery, please call your surgeon's office Aren Lazo MD . You may also call [phone] and ask for your surgeon's office. For patients having surgery @ [facility], if your surgeon's office has not notified you of your surgery time by 2pm THE BUSINESS DAY BEFORE your surgery, please call your surgeon's office Aren Lazo MD . You may also call the surgery center at [phone] and ask for your surgeon's office. For patients having [facility] @ [facility], if your surgeon's office has not notified you of your surgery time by NOON THE BUSINESS DAY BEFORE your surgery, please call the surgery center [phone]. [facility] ([facility]) does not provide arrival times for theday of surgery or provide the duration of surgery. This information is provided by your surgeon's office or by the center where you are having surgery. We appreciate your understanding. documented in this encounter Plan of Treatment Not on file documented as of this encounter Procedures Procedure Name Priority Date/Time Associated Diagnosis Comments XR SKULL LESS THAN 4 VIEWS IP Routine 01/28/2025 8:59 AM CDT documented in this encounter Results * XR Skull Less than 4 Views (01/28/2025 8:59 AM CDT) Anatomical Region Laterality Modality Head and Neck N/A Computed Radiogr aphy 01/28/2025 9:18 AM CDT Impressions 01/28/2025 9:18 AM CDT 1. New right cochlear implant expected position. Electronically signed by: Jona Singh D.O. Narrative 01/28/2025 9:18 AM CDT EXAMINATION: XR SKULL LESS THAN 4 VIEWS HISTORY: Cochlear implant COMPARISON: MRI dated 11/23/[address] dated 5 FINDINGS: New right cochlear implant in expected position with intact leads. No acute displaced fracture. Procedure Note Jona Singh DO - 01/28/2025 EXAMINATION: XR SKULL LESS THAN 4 VIEWS HISTORY: Cochlear implant COMPARISON: MRI dated 11/23/[address] dated 5 FINDINGS: New right cochlear implant in expected position with intact leads. No acute displaced fracture. IMPRESSION: 1. New right cochlear implant expected position. Electronically signed by: Jona Singh, D.O. us Aren Lazo MD IMG XR PROCEDURES Final Re sult documented in this encounter Visit Diagnoses Diagnosis Sensorineural hearing loss, bilateral [H90.3]- Primary Sensorineural hearing loss, bilateral documented in this encounter Administered Medications Inactive Administered Medications - up to 3 most recent administrations Medication Order MAR Action Action Date Dose Rate Site acetaminophen (TYLENOL) tablet 500 mg 500 mg, oral, Once, On Tue01/28/25 at 0615, For 1 dose, Pre-Op, Indications: Pre-Emptive AnalgesiaIndications:Pre-E mptive Analgesia Given 01/28/2025 6:13 AM CDT 500 mg Lactated Ringer's (LR) infusion 30 mL/hr, intravenous, Continuous, Starting on Tue01/28/25 at 0615, Pre-Op Rate/Dose Verify 01/28/2025 7:30 AM CDT 30 mL/hr New Bag 01/28/2025 6:14 AM CDT 30 mL/hr 30 mL/hr metoclopramide (REGLAN) 5 mg/mL injection 10 mg 10 mg, intravenous, Administer over 1 Minutes, Once, On Tue01/28/25 at 0615, For 1 dose, Pre-Op, IV Doses up to 10 mg can be given IV push undiluted over 1 to 2 minutes; higher doses (>10 mg) to be diluted in 50 mL of compatible solution (preferably NS) and given IVPB over at least 15 minutes. Note: Rapid IV administration may be associated with a transient (but intense) feeling of anxiety and restlessness, followed by drowsiness., Indications: gastroesophageal reflux diseaseIndications:gastroesophageal reflux disease Given 01/28/2025 6:13 AM CDT 10 mg documented in this encounter Discontinued Medications Medication Sig Discontinue Reason Start Date End Da te amLODIPine (NORVASC) 5 mg tablet Take 1 tablet (5 mg total) by mouth daily Therapy completed 12/13/2023 01/11/2025 B complex-liver extract capsule Take 1 capsule by mouth daily Therapy completed 01/11/2025 aspirin 81 mg enteric coated tablet Therapy completed 01/11/2025 vitamin B complex capsuleIndications:Vit simeon Deficiency Prevention Take 1 capsule by mouth nightly With vitamin c Therapy completed 01/11/2025 budesonide-formoteroL (SYMBICORT) 80-4.5 mcg/actuation inhaler Inhale 2 puffs 2 (two) times a day Therapy completed 01/11/2025 cholecalciferol, vitamin D3, (D3-2000 ORAL) Take by mouth Therapy completed 01/11/2025 ciprofloxacin-dexAMETH asone (CIPRODEX) otic suspension Administer 4 drops into each ear 2 (two) times a day Therapy completed 11/16/2024 01/11/2025 fluorouraciL (EFUDEX) 5 % cream Apply topically Therapy completed 01/11/2025 folic acid (FOLVITE) 1 mg tablet Take 1 tablet (1,000 mcg total) by mouth daily Therapy completed 09/21/2023 01/11/2025 HYDROcodone-acetaminop hen (NORCO) 5-325 mg per tablet Therapy completed 01/11/2025 methotrexate 2.5 mg tablet Take 1 tablet (2.5 mg total) by mouth every 7 days Therapy completed 10/12/2023 01/11/2025 documented as of this encounter Historical Medications * This list may reflect changes made after this encounter. medical supply, miscellaneous (MISCELLANEOUS MEDICAL SUPPLY MISC)Indications:lo w O2 level Administer 2 L into affected nostril(s) nightly Home Oxygen 2L/NC Spiriva Respimat 1.25 mcg/actuation inhalerIndications: Maintenance Therapy for Asthma Inhale 2 puffs every morning herbal drugs tabletIndications:s upplement Take 1 tablet by mouth nightly Prevagen traZODone (DESYREL) 50 mg tabletIndications:i nsomnia associated with depression Take 2 tablets (100 mg total) by mouth nightly olmesartan (BENICAR) 5 mg tabletIndications:h ypertension Take 2 tablets (10 mg total) by mouth nightly rosuvastatin (CRESTOR) 20 mg tabletIndications:h yperlipidemia Take 1 tablet (20 mg total) by mouth nightly mesalamine (LIALDA) 1.2 gram EC tabletIndications:U lcerative Colitis Take 4 tablets (4.8 g total) by mouth every morning 07/19/2014 latanoprost (XALATAN) 0.005 % ophthalmic solutionIndications :open angle glaucoma Administer 1 drop into both eyes nightly memantine (NAMENDA) 10 mg tabletIndications: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 Take 1 tablet (10 mg total) by mouth every morning 12/13/2024 donepeziL (ARICEPT) 10 mg tabletIndications:lili noyola Take 1 tablet (10 mg total) by mouth nightly 12/13/2024 vitamin B complex capsuleIndications: Vitamin Deficiency Prevention Take 1 capsule by mouth nightly With vitamin c 5 methotrexate 2.5 mg tablet Take 1 tablet (2.5 mg total) by mouth every 7 days 10/12/2023 5 HYDROcodone-acetami nophen (NORCO) 5-325 mg per tablet 01/11 5 folic acid (FOLVITE) 1 mg tablet Take 1 tablet (1,000 mcg total) by mouth daily 09/21/2023 5 fluorouraciL (EFUDEX) 5 % cream Apply topically 0 5 added in this encounter Active and Recently Administered Medications Times are shown in CDT. Scheduled Medication Order 01/26/2025 01/27/2025 01/28/2025 acetaminophen (TYLENOL) tablet 500 mg (COMPLETED) 500 mg, oral, Once, On Tue01/28/25 at 0615, For 1 dose, Pre-Op, Indications: Pre-Emptive Analgesia 0613 (Given - Provid er: Mili Alcazar RN) metoclopramide (REGLAN) 5 mg/mL injection 10 mg (COMPLETED) 10 mg, intravenous, Administer over 1 Minutes, Once, On Tue01/28/25 at 0615, For 1 dose, Pre-Op, IV Doses up to 10 mg can be given IV push undiluted over 1 to 2 minutes; higher doses (>10 mg) to be diluted in 50 mL of compatible solution (preferably NS) and given IVPB over at least 15 minutes. Note: Rapid IV administration may be associated with a transient (but intense) feeling of anxiety and restlessness, followed by drowsiness., Indications: gastroesophageal reflux disease 0613 (Given - Provid er: Mili Alcazar RN) sodium chloride 0.9% flush 0.5-20 mL 0.5-20 mL, intra-catheter, Every 8 hours scheduled, First dose on Tue01/28/25 at 0615, Pre-Op, Flush volume based on line type and size. 0615 (Due) Continuous Medication Order 01/26/2025 01/27/2025 01/28/2025 Lactated Ringer's (LR) infusion 30 mL/hr, intravenous, Continuous, Starting on Tue01/28/25 at 0615, Pre-Op 0614 (New Bag - Prov ider: Mili Alcazar RN)0730 (Rate/Dose Verify - Provider: Minda Brizuela CRNA)0909 (Anesthesia Volume Adjustment - Provider: Minda Brizuela CRNA)1417 (Due: Stopped) PRN Medication Order 01/26/2025 01/27/2025 01/28/2025 albuterol 2.5 mg /3 mL (0.083 %) nebulizer solution 2.5 mg 2.5 mg, nebulization, Once as needed, wheezing, Starting on Tue01/28/25 at 0544, For 1 dose, Pre-Op, Indications: Bronchospasm Prevention bacitracin-polymyxin B (POLYSPORIN) 500-10,000 unit/gram ointment tube (CANCELED) As needed, Starting on Tue01/28/25 at 0823, Intra-Op 0823 (Given - Provid er: Aren Lazo MD - Comment: Applied after the procedure is finished.) ciprofloxacin (CIPRO) 400 mg/200 mL in dextrose 5% (premix) (COMPLETED) Administer over 60 Minutes, Continuous PRN, Starting on Tue01/28/25 at 0748, Intra-Op 0748 (New Bag - Prov ider: Aren Lazo MD - Comment: Added to 500 ML NS.) dexAMETHasone (DECADRON) 4 mg/mL injection (CANCELED) Administer over 2 Minutes, As needed, Starting on Tue01/28/25 at 0748, Intra-Op 0748 (Given - Provid er: Aren Lazo MD) diphenhydrAMINE (BENADRYL) 50 mg/mL injection 12.5 mg 12.5 mg, intravenous, Every 15 min PRN, itching, Starting on Tue01/28/25 at 0921, For 2 doses, Phase I, Max cumulative dose 50 mg., Indications: Itching famotidine (PEPCID) tablet 20 mg 20 mg, oral, Once as needed, heartburn, If on chronic heartburn medications and have not taken on DOS or present to pre-op with active heartburn symptoms, Starting on Tue01/28/25 at 0544, For 1 dose, Pre-Op, Indications: gastroesophageal reflux disease fentaNYL (SUBLIMAZE) preservative free injection 25 mcg 25 mcg, intravenous, Every 10 min PRN, 1st line for pain, Starting on Tue01/28/25 at 0921, Phase I, Switch to 2nd line analgesic order if pain is uncontrolled or increasing after 2 doses. Notify Anesthesiologist if total PACU dose reaches 200 mcg and pain score 5/10 or more., Indications: Pain fentaNYL (SUBLIMAZE) preservative free injection 50 mcg 50 mcg, intravenous, Every 10 min PRN, 2nd line for pain, Starting on Tue01/28/25 at 0921, Phase I, May administer 10 mintes after 2nd dose of 1st line analgesic agent for uncontrolled or increasing pain. Revert to 1st line dose if POSS of 3. Notify Anesthesiologist if total PACU dose reaches 200 mcg and pain score 5/10 or more., Indications: Pain HYDROcodone-acetaminophen (NORCO) 5-325 mg per tablet 1 tablet 1 tablet, oral, Once as needed, 1st line for pain, Starting on Tue01/28/25 at 0921, For 1 dose, Phase I, When able to tolerate PO. May repeat in 1 hour if pain is uncontrolled or increasing after 1st dose., Indications: Pain lidocaine (PF) (XYLOCAINE) 10 mg/mL (1 %) preservative free injection 2-10 mg 2-10 mg (0.2-1 mL), other, Once as needed, pain with IV placement, Starting on Tue01/28/25 at 0544, For 1 dose, Pre-Op, Administer volume needed to infiltrate IV site. lidocaine-EPINEPHrine (XYLOCAINE with EPI) 1 %-1:100,000 injection (CANCELED) As needed, Starting on Tue01/28/25 at 0748, Intra-Op, Indications: Administration of Local Anesthesia 0748 (Given - Provid er: Aren Lazo MD) naloxone (NARCAN) 0.4 mg/mL injection 0.04-0.4 mg 0.04-0.4 mg, intravenous, Once as needed, other, excessive sedation/respiratory depression, Starting on Tue01/28/25 at 0921, For 1 dose, Phase I, Dilute 0.4 mg with 9 mL NS (final concentration 0.04 mg/mL). For respiratory depression (respiratory rate less than 6), administer 0.4 mg IVP over 30 seconds. For excessive sedation administer 0.04 mg (1 mL) every 1 minute until desired level of alertness. For IV, administer over 30 seconds., Indications: Opioid Toxicity ondansetron (ZOFRAN) injection 4 mg 4 mg, intravenous, Administer over 2 Minutes, Once as needed, nausea, vomiting, Starting on Tue01/28/25 at 0921, For 1 dose, Phase I, Proceed to prochlorperazine if ondansetron has been given within the last 6 hours. prochlorperazine (COMPAZINE) injection 5 mg 5 mg, intravenous, Administer over 2 Minutes, Once as needed, nausea, vomiting, Starting on Tue01/28/25 at 0921, For 1 dose, Phase I, If nausea/vomiting not relieved by ondansetron within 30 minutes or if ondansetron has been given within the last 6 hours. sodium chloride 0.9% flush 0.5-20 mL 0.5-20 mL, intra-catheter, As needed, line care, Starting on Tue01/28/25 at 0544, Pre-Op, Flush volume based on line type and size. Flush before and after each use. 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.) documented in this encounter Orders Medications Ordered That Loy ht Not Have Been Administered Count Last Ordered Date First Ordered Date albuterol 2.5 mg /3 mL (0.08 3 %) nebulizer solution 2.5 mg 1 01/28/2025 bacitracin-polymyxin B (POLY SPORIN) 500-10,000 unit/gram ointment tube 01/28/2025 ciprofloxacin (CIPRO) 400 mg /200 mL in dextrose 5% (premix) 01/28/2025 dexAMETHasone (DECADRON) 4 mg/mL injection 01/28/2025 diphenhydrAMINE (BENADRYL) 5 0 mg/mL injection 12.5 mg 1 01/28/2025 famotidine (PEPCID) tablet 20 mg 1 01/29/20 fentaNYL (SUBLIMAZE) preserv ative free injection 25 mcg 1 01/28/2025 fentaNYL (SUBLIMAZE) preserv ative free injection 50 mcg 1 01/28/2025 HYDROcodone-acetaminophen (N ORCO) 5-325 mg per tablet 1 tablet 1 01/28/2025 lidocaine (PF) (XYLOCAINE) 1 0 mg/mL (1 %) preservative free injection 2-10 mg 1 01/28/2025 lidocaine-EPINEPHrine (XYLOC LATASHA with EPI) 1 %-1:100,000 injection 1 01/28/2025 naloxone (NARCAN) 0.4 mg/mL injection 0.04-0.4 mg 1 01/28/2025 ondansetron (ZOFRAN) injection 4 mg 1 01/28 prochlorperazine (COMPAZINE) injection 5 mg 1 01/28/2025 sodium chloride 0.9% flush 0.5-20 mL 2 01/13 sodium chloride 0.9% irrigation 1 5 documented in this encounter Care Teams Health Plan Specialist Relationship Specialty Start Date End Date Aren Morales MD [address] [facility] [address] [address] [place] [address] PCP - General 02/23/17 documented as of this encounter
--- OUTSIDE RECORDS SUMMARY | 2025-01-28 17:19 | XMS_ITS | Encounter Summary ---
Author Organization [facility] Healthcare Address [address] [place] [address] Care Team Providers Care Margin Clerk Name Role Phone Aren Morales MD Primary Care Provider + Reason for Visit * Auth/Cert (Routine) Specialty Diagnoses / Procedures Referred By Contac t Referred To Contact Diagnoses Sensorineural hearing loss (SNHL) of both ears SNHL bilateral Procedures TN COCHLEAR DEVICE IMPLANTATION W/WO MASTOIDECTOMY TN COCHLEAR DEVICE IMPLANTATION W/WO MASTOIDECTOMY IMPLANTATION COCHLEAR DEVICE UNILATERAL. 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 Never 01/28/2025 5:50 AM FABRICIOT Verito Camacho RN documented as of this encounter Plan of Treatment Not on file documented as of this encounter Goals Goal Patient Goal Type Associated Problems Recent Progress Patient-Stated? Author Autogenerat ed Goal Care Plan Autogenerated Problem No Mili Alcazar, MANUEL documented as of this encounter Procedures Procedure [...] position. Electronically signed by: Jona Singh D.O. us Aren Lazo MD IMG XR PROCEDURES Final Re sult documented in this encounter Visit Diagnoses Not on filedocumented in this encounter Additional Health Concerns Active Problems Noted Date Diagnosed Date Autogenerated Problem 01/28/2025 documented as of this encounter Care Teams Margin Clerk Relationship Specialty Start Date End Date Aren Morales MD [address] [facility] [address] [facility] [place] [address] PCP - General 02/23/17 documented as of this encounter
--- OUTSIDE RECORDS SUMMARY | 2025-01-28 17:19 | XMS_ITS | Encounter Summary ---
Author Organization [facility]care Address [address] [place] [address] Care Team Providers Care Card Feeder Name Role Phone Kacey SHIN MD, Julius Avendaño Primary Care Provider [phone]- [phone] Reason for Visit * Reason Comments Med Refill Encounter Details Date Type Department Care Team (Late st Contact Info) Description 08/05/2022 Refill [facility] Medical Group Gastroenterology [address] [place] [address] Leatha Morin, SOCIAL SCIENCE ANALYST Ulcerative colitis without complications, unspecified location (HCC) (Primary Dx) Social History Tobacco Use [...] encounter Miscellaneous Notes * Telephone Encounter - Cindy Kieran - 08/12/2022 2:43 PM CST Patient called at this time. States that he is requesting a paper print out of his medications from now on to make sure that he gets the 3-9 month supply of medications due to the pricing on just a month supply of medications. Author spent a lengthy time on phone with patient attempting to explain the office protocol and the documentation in the chart showing that appointments with GI office has not been completed and that the provider is requesting he have an Appointment as below. Patient states that he had been seen in August this year for his colonoscopy and the follow up and further appointments that author confirmed in chart have had been cancelled per the patient. Please advise. Please return call. Patient's phone: [phone]. Thank you. ANT POLISHER documented in this encounter Plan of Treatment Upcoming Encounters Date Type Department Care Team (Late st Contact Info) Description 02/26/2025 11:[address] [facility] [address] [place] [phone] Judy Bess PA [address] [place] [address] 03/28/2025 2:00 PM CDT Office Visit [facility] Sleep Medicine Professional Office Building [address] [place] [phone] Lizeth Barreto MD [address] [place] [address] 06/26/2025 1:10 PM IMPLANT POLISHER Office Visit [facility] Gastroenterology [address] [place] [address] [place] [phone] Kiya Anguiano NP [address] [place] [address] [place] [address] 07/03/2025 11:10 AM IMPLANT POLISHER Office Visit [facility] Pulmonology [address] [place] [phone] Tita Graves NP [address] [place] [address] documented as of this encounter Visit Diagnoses Diagnosis Ulcerative colitis without complications, unspecified location (HCC)- Primary documented in this encounter Additional Health Concerns Infection Onset Date Last Indicated Resolved Time R/O C. difficile 06/09/2023 06/14/2023 06/14/2023 8:50 PM CDT R/O GI Infection 06/13/2023 06/13/2023 06/13/2023 5:51 PM CDT C. difficile Carrier 06/14/2023 06/14/2023 023 12:21 AM IMPLANT POLISHER R/O C. difficile 06/28/2023 06/30/2023 06/30/2023 3:55 PM IMPLANT POLISHER R/O C. difficile 08/04/2023 08/05/2023 08/05/2023 8:55 PM IMPLANT POLISHER C. difficile Carrier 08/05/2023 08/05/2023 024 12:21 AM IMPLANT POLISHER R/O C. difficile 08/19/2023 08/22/2023 08/22/2023 4:14 PM IMPLANT POLISHER R/O COVID-19 08/30/2023 08/30/2023 08/30/2023 4:19 PM IMPLANT POLISHER R/O C. difficile 02/23/2024 11/21/2024 02/28/2024 12:21 AM CDT R/O C. difficile 10/24/2024 11/21/2024 10/29/2024 12:21 AM CDT documented as of this encounter Care Teams Card Feeder Relationship Specialty Start Date End Date Julius Erazo II, MD [address] [place] [address] PCP - General Retail General Manager 02/02/17 documented as of this encounter
--- OUTSIDE RECORDS SUMMARY | 2025-01-28 17:19 | XMS_ITS | Encounter Summary ---
Author Organization [facility]care Address [address] [place] [address] Care Team Providers Care De Icer Installer Name Role Phone Kacey SHIN MD, Julius Avendaño Primary Care Provider [phone]- [phone] Encounter Details Date Type Department Care Team (Late Contact Info) Description 01/26/2019 Orders Only [facility] Medical Group Gastroenterology [address] [place] [address] Mary Alice Jo, INVASIVE CARDIOLOGIST History of ulcerative colitis Social History Tobacco Use Types Packs/Day Years [...] Info) Description 02/26/2025 11:00 AM CDT Appointment [facility] [address] [place] [phone] Judy Bess PA [address] [place] [address] 03/28/2025 2:00 PM CDT Office Visit [facility] Sleep Medicine Professional Office Building [address] [phone] Lizeth Barreto MD [address] [place] [address], [address] [address] 06/26/2025 1:10 PM SUPERVISOR REFINING Office Visit [facility] Gastroenterology [address] [place] [address] [place] [phone] Kiya Anguiano NP [address] [place] [address] 07/03/2025 11:10 AM SUPERVISOR REFINING Office Visit [facility] Pulmonology [address] [place] [phone] Tita Graves NP [address] [place] [address] documented as of this encounter Visit Diagnoses Diagnosis History of ulcerative colitis documented in this encounter Additional Health Concerns Infection Onset Date Last Indicated Resolved Time R/O COVID-19 09/01/2021 09/01/2021 09/01/2021 9:10 PM SUPERVISOR REFINING R/O C. difficile 06/09/2023 06/14/2023 06/14/2023 8:50 PM CDT R/O GI Infection 06/13/2023 06/13/2023 06/13/2023 5:51 PM CDT C. difficile Carrier 06/14/2023 06/14/2023 023 12:21 AM SUPERVISOR REFINING R/O C. difficile 06/28/2023 06/30/2023 06/30/2023 3:55 PM SUPERVISOR REFINING R/O C. difficile 08/04/2023 08/05/2023 08/05/2023 8:55 PM SUPERVISOR REFINING C. difficile Carrier 08/05/2023 08/05/2023 024 12:21 AM SUPERVISOR REFINING R/O C. difficile 08/19/2023 08/22/2023 08/22/2023 4:14 PM SUPERVISOR REFINING R/O COVID-19 08/30/2023 08/30/2023 08/30/2023 4:19 PM SUPERVISOR REFINING R/O C. difficile 02/23/2024 11/21/2024 02/28/2024 12:21 AM CDT R/O C. difficile 10/24/2024 11/21/2024 10/29/2024 12:21 AM CDT documented as of this encounter Care Teams De Icer Installer Relationship Specialty Start Date End Date Julius Erazo II, MD [address] [place] [address] PCP - General Chemical Packager 02/02/17 documented as of this encounter
--- OUTSIDE RECORDS SUMMARY | 2025-01-28 17:19 | XMS_ITS | Encounter Summary ---
Author Organization [facility]care Address [address] [place] [address] Care Team Providers Care Hand Woodworking Sander Name Role Phone Kacey SHIN MD, Julius Avendaño Primary Care Provider [phone]- [phone] Reason for Visit * Reason Comments Med Refill Encounter Details Date Type Department Care Team (Late st Contact Info) Description 12/09/2022 Refill [facility] Medical Group Gastroenterology [address] [place] [phone] Leatha Morin NP Medication refill; Ulcerative colitis without complications, unspecified [...] Telephone Encounter - Kiya Anguiano NP - 12/10/2022 10:54 AM CDT Please see note below from 12/09/22 to check with rx as this was sent on 10/21/22 with 3 refills. Is this at the pharmacy? Thanks * Telephone Encounter - Kiya Anguiano NP - 12/09/2022 5:03 PM CDT Please check with rx as this was sent on 10/21/22 with RF 3. Thanks documented in this encounter Plan of Treatment Upcoming Encounters Date Type Department Care Team (Late st Contact Info) Description 02/26/2025 11:00 AM CDT Appointment [facility] [address] [place] [address] Judy Bess PA [address] [place] [address] 03/28/2025 2:00 PM CDT Office Visit [facility] Sleep Medicine Professional Office Building [address] [place] [phone] Lizeth Barreto MD [address] [place] [address] 06/26/2025 1:10 PM PAPER SEALER Office Visit [facility] Medical [facility] Gastroenterology [address] [place] [address] [place] [phone] Kiya Anguiano NP [address] [place] [address] [place] [address] 07/03/2025 11:10 AM PAPER SEALER Office Visit [facility] Medical [facility] Pulmonology [address] [place] [phone] Tita Graves NP [address] [place] [address] documented as of this encounter Visit Diagnoses Diagnosis Medication refill Issue of repeat prescriptions Ulcerative colitis without complications, unspecified location (HCC) documented in this encounter Additional Health Concerns Infection Onset Date Last Indicated Resolved Time R/O C. difficile 06/09/2023 06/14/2023 06/14/2023 8:50 PM CDT R/O GI Infection 06/13/2023 06/13/2023 06/13/2023 5:51 PM CDT C. difficile Carrier 06/14/2023 06/14/2023 023 12:21 AM PAPER SEALER R/O C. difficile 06/28/2023 06/30/2023 06/30/2023 3:55 PM PAPER SEALER R/O C. difficile 08/04/2023 08/05/2023 08/05/2023 8:55 PM PAPER SEALER C. difficile Carrier 08/05/2023 08/05/2023 024 12:21 AM PAPER SEALER R/O C. difficile 08/19/2023 08/22/2023 08/22/2023 4:14 PM PAPER SEALER R/O COVID-19 08/30/2023 08/30/2023 08/30/2023 4:19 PM PAPER SEALER R/O C. difficile 02/23/2024 11/21/2024 02/28/2024 12:21 AM CDT R/O C. difficile 10/24/2024 11/21/2024 10/29/2024 12:21 AM CDT documented as of this encounter Care Teams Hand Woodworking Sander Relationship Specialty Start Date End Date Julius Erazo II, MD [address] [place] [address] PCP - General Private Banker 02/02/17 documented as of this encounter
--- OUTSIDE RECORDS SUMMARY | 2025-01-28 17:19 | XMS_ITS | Encounter Summary ---
Author Organization [facility] Address [address] [place] [address] Care Team Providers Care Object Oriented Programmer Name Role Phone Kacey SHIN MD, Julius Avendaño Primary Care Provider [phone]- [phone] Encounter Details Date Type Department Care Team (Late st Contact Info) Description 05/01/2018 Orders Only [facility] Medical Group Pulmonology [address] [place] [phone] Trinity Barrios, FOUNDRY WORKER APPRENTICE Chronic obstructive pulmonary disease, unspecified COPD type (CMS/HCC) ([facility]) Social History Tobacco Use Types Packs/Day Years [...] Info) Description 02/26/2025 11:00 AM CDT Appointment [facility] [address] [place] [phone] Judy Bess PA [address] [place] [address] 03/28/2025 2:00 PM CDT Office Visit [facility] Sleep Medicine Professional Office Building [address] [place] [phone] Lizeth Barreto MD [address] [place] [address] 06/26/2025 1:10 PM TRANSFER PUMPER Office Visit [facility] Gastroenterology [address] [place] [address] [place] [phone] Kiya Anguiano NP [address] [place] [address] [place] [address] 07/03/2025 11:10 AM TRANSFER PUMPER Office Visit [facility] Pulmonology [address] [place] [phone] Tita Graves NP [address] [place] [address] documented as of this encounter Visit Diagnoses Diagnosis Chronic obstructive pulmonary disease, unspecified COPD type (HCC) documented in this encounter Additional Health Concerns Infection Onset Date Last Indicated Resolved Time R/O COVID-19 09/01/2021 09/01/2021 09/01/2021 9:10 PM TRANSFER PUMPER R/O C. difficile 06/09/2023 06/14/2023 06/14/2023 8:50 PM CDT R/O GI Infection 06/13/2023 06/13/2023 06/13/2023 5:51 PM CDT C. difficile Carrier 06/14/2023 06/14/2023 023 12:21 AM TRANSFER PUMPER R/O C. difficile 06/28/2023 06/30/2023 06/30/2023 3:55 PM TRANSFER PUMPER R/O C. difficile 08/04/2023 08/05/2023 08/05/2023 8:55 PM TRANSFER PUMPER C. difficile Carrier 08/05/2023 08/05/2023 024 12:21 AM TRANSFER PUMPER R/O C. difficile 08/19/2023 08/22/2023 08/22/2023 4:14 PM TRANSFER PUMPER R/O COVID-19 08/30/2023 08/30/2023 08/30/2023 4:19 PM TRANSFER PUMPER R/O C. difficile 02/23/2024 11/21/2024 02/28/2024 12:21 AM CDT R/O C. difficile 10/24/2024 11/21/2024 10/29/2024 12:21 AM CDT documented as of this encounter Care Teams Object Oriented Programmer Relationship Specialty Start Date End Date Julius Erazo II, MD [address] [place] [address] PCP - General Fructose Loader 02/02/17 documented as of this encounter
--- OUTSIDE RECORDS SUMMARY | 2025-01-28 17:19 | XMS_ITS | Data Portability ---
Author Organization [place] - DR. DESIREE FERNANDEZ M.D. 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 Plan of Treatment Reminders Order Date Submit Date Provider Last Modified By Organization Details Last Modified Time Details Appointments FOLLOW UP 2024 11:00A M Dr. Salinas Not available Not available Not available Lab CMP, serum or plasma 2023 024 [facility], [address] [place], [address], 08/23/2024 15:22:16 CBC w/ auto diff 2023 024 [facility], [address] [place], [address], 01/17/2025 17:33:40 lipid panel, serum 2023 024 [facility], [address] [place], [address], 01/17/2025 17:33:33 Referral neurol ogist referr rachael roth memory issues . 2023 024 [facility] (Scheduling Line), [address] [place], [address], 03/22/2024 11:59:36 physic al therap ist referr rachael sierra issues is collette t gabrielle n. Pt report knee pain b/l and lbp chroni c not worsen ing but would like to try PT. 2023 024 [facility], [address], [place], [address], 03/14/2024 09:09:06 vascul ar surgeo n referr al - b/l Caroti d stenos is 50-69% 2023 024 [facility], [address], [address], [place], [address], 02/17/2024 16:06:44 Procedures None record ed. Surgeries None record ed. Imaging None record ed. Medication Orders epinep hrine 0.3 mg/0.3 mL inject ion, auto-i njecto r 2024 025 [facility], [address] [place] [address], [address], 08/29/2024 12:48:38 trazod one 50 mg tablet 2024 025 [facility], [address] [place] [address], [address], 08/29/2024 12:48:38 duloxe kelsy 60 mg capsul e,juan jose yed releas e 2024 025 [facility], [facility] [place], [address], 08/29/2024 12:48:36 Paxlov id 300 mg (150 mg x 2)-100 mg tablet s in a dose pack 2023 025 [facility], [address] [place] [address], [address], 08/29/2024 12:37:50 predni solone 5 mg tablet 2023 025 [facility], [address] [place], [address], 08/29/2024 12:31:02 olmesa rtan 20 mg tablet 2023 024 [facility], [address] [place], [address], 03/07/2024 13:17:03 trazod one 50 mg tablet 2023 024 [facility], [address] [place], [address], 03/07/2024 13:17:04 duloxe kelsy 60 mg capsul e,juan jose yed releas e 2023 024 [facility], [address] [place], [address], 03/07/2024 13:17:08 Patient TargetsNo targets recorded. Patient InstructionsNo instructions recorded. Reason for Referral Vascular Surgeon Referral fo r Carotid artery stenosis b/l Carotid stenosis 50-69% Referring Physician: Desiree Hightower, Internal Medicine, Encounter Date: 01/18/2024 Physical Therapist Referral for Low back pain Balance issues is biggest concern. Pt report knee pain b/l and lbp chronic not worsening but would like to try PT. Referring Physician: Desiree Hightower Internal Medicine, Encounter Date: 03/07/2024 Neurologist Referral for Mem ory impairment General memory issues. Referring Physician: Desiree Hightower Internal Medicine, Encounter Date: 03/07/2024 Results Created Date Observation Date Name Description Value Unit Range Abnormal Flag Note LastModifiedBy Organization Detail LastModifiedTime 01/16/20 24 01/11/2024 andrew ROBLES carot id arter y No observ ation record ed. [facility] [address] [place], [address], 01/17/2024 12:39:42 01/16/20 24 01/11/2024 andrew ROBLES carot id arter y No observ ation record ed. [email or web address] [place] [address] [address] [place], [address], 01/18/2024 12:19:50 Result Notes None recorded. Problems Name Problem SNOMED Code Status Onset Date Resolution Date Notes Provider Name and Address Organization Details Recorded Time Neck pain 99106016 Active 2022 Desiree Hightower MD [address] [place] [address], [address], [place] - DR. DESIREE HIGHTOWER [facility] 3 12:08:16 Anemia 079382907 Active 2022 Desiree Hightower MD [address] [place] [address], [address], [place] - DR. DESIREE [facility]OWER [facility] 3 11:13:51 Hearing loss 50952647 Active 2023 Desiree Hightower MD [address] [place] [address], [address], [place] Marcelino HIGHTOWER M.D. S[facility]i 4 11:10:58 Hypertensiv e disorder 07176849 Active 2019 Desiree Hightower MD [address] [place] [address], [address], [place] Marcelino HIGHTOWER M.D. [facility] 0 12:00:29 Hyperlipide gabriel 74060873 Active 2019 Desiree Hightower MD [address] [place] [address], [address], [place] Marcelino HIGHTOWER M.D. [facility] 0 12:00:30 Hyperglycem ia 39578245 Active 2019 Desiree Hightower MD [address] [place] [address], [address], [place] Marcelino HIGHTOWER M.D. 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 DESIREE HIGHTOWER [facility] 1 15:53:52 Allergy to honey bee venom 3958587731223 9103 Active 2020 Desiree Hightower MD [address] [place], [address], [place] - DR. DESIREE HIGHTOWER M[facility] 1 10:59:13 Insomnia 115442368 Active 2021 Desiree Hgihtower MD [address] [place], [address], [place] - DR. DESIREE HIGHTOWER M[facility] 2 12:41:36 Notes:High Blood Pressure hi gh cholesterol COPD allergies Problem Notes None recorded. Medical Equipment None Reported. Allergies No known drug allergies Medications Name Sig Start Date Stop Date Status Note LastModified by Organization Details LastModified Time latanopro st 0.005 % eye drops INSTILL 1 DROP INTO EACH EYE EVERY DAY AT BEDTIME active Not Available Not Available No t Available carvedilo l 6.25 mg tablet 10/14 completed Not Available Not Available Not Available prednison e 10 mg tablet 09/06 completed Not Available Not Available Not Available albuterol sulfate 2.5 mg/3 mL (0.083 %) solution for nebulizat ion 09/06 completed Not Available Not Available Not Available trazodone 50 mg tablet Take 1 tablet by mouth once daily active Last sent to [facility] on 08/29/24 for 6month supply Not Available Not Available Not Available pravastat in 40 mg tablet Take 1 tablet every day by oral route. 09/06 completed Not Available Not Available Not Available hydrocodo ne 5 mg-acetam inophen 325 mg tablet active Not Available Not Available Not Available lisinopri l 20 mg tablet 10/14 completed Not Available Not Available Not Available fluoroura cil 5 % topical cream APPLY TO AFFECTED AREA(S) TWICE DAILY FOR 2-4 WEEKS OR UNTIL SEVERE EROSION OCCURS active Not Available Not Available No t Available prednison e 5 mg tablet TAKE 2 TABLETS BY MOUTH ONCE DAILY 08/02 completed Not Available Not Available Not Available amlodipin e 2.5 mg tablet TAKE 1 TABLET BY MOUTH ONCE DAILY active Not Available Not Available No t Available azathiopr ine 50 mg tablet TAKE 1 & 1 2 (ONE & ONE HALF) TABLETS BY MOUTH ONCE DAILY 08/02 completed Not Available Not Available Not Available clopidogr el 75 mg tablet TAKE 1 TABLET BY MOUTH ONCE DAILY active Not Available Not Available No t Available amlodipin e 5 mg tablet TAKE 1 TABLET BY MOUTH ONCE DAILY 08/02 completed Not Available Not Available Not Available tramadol 50 mg tablet TAKE 1 TABLET BY MOUTH EVERY 8 HOURS NEEDED 03/01 completed Not Available Not Available Not Available vancomyci n 125 mg capsule TAKE 1 CAPSULE BY MOUTH EVERY 6 HOURS FOR 10 DAYS 09/01 completed Not Available Not Available Not Available prednisol one acetate 1 % eye drops,bjorn pension 09/06 completed Not Available Not Available Not Available lorazepam 0.5 mg tablet Take 1 tablet every day by oral route at bedtime. 09/06 completed Not Available Not Available Not Available methotrex ate sodium 2.5 mg tablet TAKE 5 TABLETS BY MOUTH ONCE A WEEK active Not Available Not Available No t Available prednison e 1 mg tablet TAKE 3 TO 4 TABLETS BY MOUTH ONCE DAILY active Not Available Not Available No t Available amlodipin e 10 mg tablet 05/29 completed Not Available Not Available Not Available hydrocodo ne 7.5 mg-acetam inophen 325 mg tablet 09/06 completed Not Available Not Available Not Available folic acid 1 mg tablet TAKE 1 TABLET BY MOUTH ONCE DAILY active Not Available Not Available No t Available dorzolami de 22.3 mg-timolo l 6.8 mg/mL eye drops INSTILL 1 DROP INTO EACH EYE TWICE DAILY active Not Available Not Available No t Available gabapenti n 100 mg capsule TAKE 1 CAPSULE BY MOUTH THREE TIMES DAILY NEEDED 08/29 completed Not Available Not Available Not Available ergocalci ferol (vitamin D2) 1,250 mcg (50,000 unit) capsule Take 1 capsule every week by oral route. active Not Available Not Available No t Available epinephri ne 0.3 mg/0.3 mL injection , auto-inje ctor INJECT ONE PEN IF NEEDED FOR BEE STING. Proceed to ER or closest medical facility if this has to be used. 2024 active Not Available Not Available Not Avai lable methylpre dnisolone 4 mg tablets in a dose pack TAKE BY MOUTH DIRECTED ON INSIDE OF PACKAGE 08/30 completed Not Available Not Available Not Available albuterol sulfate HFA 90 mcg/actua tion aerosol inhaler INHALE 2 PUFFS BY MOUTH EVERY 4 HOURS NEEDED FOR WHEEZING 09/06 completed Not Available Not Available Not Available losartan 100 mg tablet 05/29 completed Not Available Not Available Not Available prednisol one 5 mg tablet Take 0.5 tablets every day by oral route for 10 days. 08/29 completed Not Available Not Available Not Available amoxicill in 875 mg-potass ium clavulana te 125 mg tablet TAKE 1 TABLET BY MOUTH TWICE DAILY WITH MEALS X 10 DAYS 08/30 completed Not Available Not Available Not Available neomycin- polymyxin -hydrocor t 3.5 mg-10,000 unit/mL-1 % ear drops,bjorn p INSTILL 4 DROPS INTO AFFECTED EAR(S) BY OTIC ROUTE 3-4 TIMES PER DAY 08/29 completed Not Available Not Available Not Available olmesarta n 20 mg tablet TAKE 1/2 (ONE-TRES F) TABLET BY MOUTH ONCE DAILY active Not Available Not Available No t Available cyclospor ine 0.05 % eye drops in a dropperet te INSTILL 1 DROP INTO BOTH EYES TWICE DAILY 08/02 completed Not Available Not Available Not Available rosuvasta tin 20 mg tablet TAKE 1 TABLET BY MOUTH NIGHTLY AT BEDTIME active cards Not Available Not Available No t Available duloxetin e 30 mg capsule,d elayed release Take 1 cap PO qPM 09/13 completed Not Available Not Available Not Available duloxetin e 60 mg capsule,d elayed release Take 1 capsule by mouth once daily in AM 2024 active Not Available Not Available Not Avai lable omega-3 acid ethyl esters 1 gram capsule Take 2 capsules twice a day by oral route for 90 days. 2021 active Not Available Not Available Not Avai lable fenofibra te nanocryst allized 145 mg tablet TAKE 1 TABLET BY MOUTH ONCE DAILY active Not Available Not Available No t Available mesalamin e 1.2 gram tablet,de layed release TAKE 4 TABLETS BY MOUTH ONCE DAILY active Not Available Not Available No t Available sodium,po tassium,m ag sulfates 17.5 gram-3.13 gram-1.6 gram oral soln USE DIRECTED 08/29 completed Not Available Not Available Not Available Dificid 200 mg tablet TAKE 1 TABLET BY MOUTH TWICE DAILY FOR 10 DAYS 09/01 completed Not Available Not Available Not Available Fluad 2017- 65yr up(PF)45 mcg(15 mcgx3)/0. 5 mL intramusc ular syringe 05/29 completed Not Available Not Available Not Available Fluzone High-Dose 2018- (PF) 180 mcg/0.5 mL intramusc ular syringe 05/29 completed Not Available Not Available Not Available Fluzone High-Dose Quad (PF) 240 mcg/0.7 mL IM syringe 03/08 completed Not Available Not Available Not Available Paxlovid 300 mg (150 mg x 2)-100 mg tablets in a dose pack Take directed 08/29 completed Not Available Not Available Not Available Breyna 80 mcg-4.5 mcg/actua tion HFA aerosol inhaler INHALE 2 PUFFS BY MOUTH TWICE DAILY. RINSE MOUTH WITH WATER AFTER USE TO REDUCE AFTER TASTE AND INCIDENC E OF THRUSH. DO NOT SWALLOW. active Not Available Not Available No t Available Vitals Date Recorded Body height Body mass index (BMI) Body weight Heart rate Systolic blood pressure Diastolic blood pressure Provider Name and Address Organization Details Last Updated DateTime 5 177.8 cm 30.2 kg/m2 60513.8 3 g 64 /min 121 mm[Hg] 65 mm[Hg] Eveline [facility]OWER [facility] 5 12:11:10 Date Recorded Body height Body mass index (BMI) Body weight Heart rate Systolic blood pressure Diastolic blood pressure Provider Name and Address Organization Details Last Updated DateTime 5 177.8 cm 29.8 kg/m2 21483.2 1 g 72 /min 114 mm[Hg] 58 mm[Hg] Eveline [facility]OWER [facility] 5 12:03:03 Date Recorded Body height Body mass index (BMI) Body weight Heart rate Systolic blood pressure Diastolic blood pressure Provider Name and Address Organization Details Last Updated DateTime 4 177.8 cm 29.6 kg/m2 85457.7 5 g 56 /min 108 mm[Hg] 53 mm[Hg] Eveline HIGHTOWER M[facility]D. [facility] 11:36:39 Date Recorded Systolic blood pressure Diastolic blood pressure Provider Name and Address Organization Details Last Updated DateTime 03/07/2024 134 mm[Hg] 62 mm[Hg] Desiree Hightower MD [address] [place], [address], ISABELLA HIGHTOWER M.D. [facility] 03/07/2024 13:02:40 Date Recorded Body height Body mass index (BMI) Body weight Heart rate Provider Name and Address Organization Details Last Updated DateTime 03/07/2024 177.8 cm 31 kg/m2 28031.95 g 66 /min Eveline HIGHTOWER M.D. [facility] 03/07/2024 12:28:47 Date Recorded Heart rate Oxygen saturation Oxygen saturation in Arterial blood by Pulse oximetry Provider Name and Address Organization Details Last Updated DateTime 08/02/2024 90 /min 93 % 93 % Desiree Hightower MD [address] [place] [address], [address], ISABELLA HIGHTOWER M.D. [facility] 08/02/2024 11:00:53 Date Recorded Body height Body mass index (BMI) Body weight Body temperature Systolic blood pressure Diastolic blood pressure Provider Name and Address Organization Details Last Updated DateTime 177.8 cm 30.1 kg/m2 52234.4 g 100.9 [degF] 132 mm[Hg] 64 mm[Hg] Eveline HIGHTOWER M.D. [facility] 09:21:21 Social History Question Answer Notes LastModified by Organizat ion Details LastModified Time Tobacco Smoking Status Former Smoker Not Available [employer] 06/10/2020 03:18:00 What Is Your Level Of Caffeine Consumption? Occasional [email or web address] Information not available 03/07/2024 How Much Tobacco Do You Chew? None [id number] Information not available 06/10/2020 When Did You Quit Smoking? 16+yearsilza [email or web address] Information not available 09/13/2024 What Was The Date Of Your Most Recent Tobacco Screening? 09/26/2024 [email or web address] Information not available 09/26/2024 What Is Your Current Pack Years? 30ormorepackisisa rs [email or web address] Information not available 09/13/2024 At What Age Did You Start Smoking Tobacco? 20 [email or web address] Information not available 03/07/2024 How Much Tobacco Do You Smoke? No [email or web address] Information not available 09/13/2024 Has Tobacco Cessation Counseling Been Provided? No [email or web address] Information not available 09/26/2024 How Many Years Have You Smoked Tobacco? 47 Information not available 03/07/2024 Sex: Unknown Functional Status Question Answer Note LastModified by Organizat ion Details LastModified Time Do you use any illicit or recreational drugs? No [email or web address] Information not available 03/07/2024 Do you or have you ever used any other forms of tobacco or nicotine? No [email or web address] Information not available 03/07/2024 What is your level of alcohol consumption? None [id number] Information not available 06/10/2020 Do you or have you ever used smokeless tobacco? Never used smokeless tobacco [id number] Information not available 06/10/2020 Are you currently employed? No [id number] Information not available 06/10/2020 What is your occupation? retired [id number] Information not available 06/10/2020 Do you or have you ever used e-cigarettes or vape? Never used electronic cigarettes [id number] Information not available 06/10/2020 Do you or have you ever used any nicotine-free cigarettes, vape, or chewing tobacco? No [email or web address] Information not available 09/13/2024 Mental Status None recorded. Family History Relationship Description Onset Age of this Age Resolved Age Notes LastModified by Organization Details LastModified Time Mother Family history of malignant neoplasm Not available 2018 11:31:56 Sister Family history of malignant neoplasm [email or web address] Not available 2018 11:31:56 Brother Family history of malignant neoplasm 71 [email or web address] Not available 2018 11:32:08 Medical History No medical history recorded. Past Encounters Encounter ID Performer Location Encounter Start Date Encounter Closed Date Diagnosis/Indication Diagnosis SNOMED-CT Code Diagnosis ICD10 Code Diagnosis Note [id number] Desiree Hightower MD Main Office [address] [place] [address] 05/29/2019 11:20:56 05/29/2019 14:14:40 Hypertensive disorder 70441842 I10 Continue medication s as below Order low salt diet Order home BP monitoring +Call the office if >140/80 consistent ly or any symptoms. +Call us immediatel y if >180/100 or head to ER w/ any symptoms Hyperlipidemia 60559511 E78.5 Continue below medication Order low fat high fiber diet Order to call office if any side effects or issues. Mixed anxi ety and depressive disorder 816158270 F41.8 Doing well on Cybalta 30mg BID [id number] Desiree Hightower MD Main Office [address] [place] [address] 10/15/2019 11:11:41 10/16/2019 09:38:20 Hypertensive disorder 79772062 I10 Continue medication s as below Order low salt diet Order home BP monitoring +Call the office if >140/80 consistent ly or any symptoms. +Call us immediatel y if >180/100 or head to ER w/ any symptoms Hyperlipidemia 26668646 E78.5 Continue below medication Order low fat high fiber diet Order to call office if any side effects or issues. Mixed anxi ety and depressive disorder 312973706 F41.8 Doing well on Cybalta 30mg BID 30mg AM and 60PM to help w/ sleep/stre ss Trazodone, ambien and benzo's discussed. Allergy to honey bee venom 6920608591 2252330 Z91.030 [id number] Desiree Hightower MD Main Office [address] [place] [address] 04/07/2020 09:24:21 04/14/2020 11:45:21 Hypertensive disorder 44230238 I10 Continue medication s as below Order low salt diet Order home BP monitoring +Call the office if >140/80 consistent ly or any symptoms. +Call us immediatel y if >180/100 or head to ER w/ any symptoms Hyperlipidemia 98685056 E78.5 Continue below medication Discussed Tg 491 and need for good diet control of this to avoid risks Order low fat high fiber diet Order to call office if any side effects or issues. Mixed anxi ety and depressive disorder 384586344 F41.8 Cymbalta 60mg AM and 30mg PM Trazodone, ambien and benzo's discussed. Hyperglycemia 66056392 R 73.9 A1c 6.May f/u repeat A1c w/ next blood test. Discussed diet/exerc ise [id number] Desiree Hightower MD Main Office [address] [place] [address] 09/22/2020 13:40:56 09/22/2020 16:21:18 Hypertensive disorder 06643526 I10 Continue medication s as below Order low salt diet Order home BP monitoring +Call the office if >140/80 consistent ly or any symptoms. +Call us immediatel y if >180/100 or head to ER w/ any symptoms Hyperlipidemia 74896634 E78.5 Continue below medication Discussed Tg 491 to 355 but still need good diet control of this to avoid risks Order low fat high fiber diet Order to call office if any side effects or issues. Mixed anxi ety and depressive disorder 363729051 F41.8 Cymbalta 60mg AM and 30mg PM Trazodone, ambien and benzo's discussed. Hyperglycemia 54122315 R 73.9 A1c 6.May f/u repeat A1c w/ next blood test. Discussed diet/exerc ise Allergy to honey bee venom [id number] 9662932 Z91.030 Vitamin D deficiency 347 47245 E55.9 [id number] Desiree Hightower MD Main Office [address] [place] [address] 03/20/2021 10:45:45 03/20/2021 11:09:02 Hypertensive disorder 97019943 I10 Continue medication s as below Order low salt diet Order home BP monitoring +Call the office if >140/80 consistent ly or any symptoms. +Call us immediatel y if >180/100 or head to ER w/ any symptoms Hyperlipidemia 56645271 E78.5 Continue below medication Discussed Tg 491 to 355 to 227 w/ diet changes and medicines Order low fat high fiber diet Order to call office if any side effects or issues. Mixed anxi ety and depressive disorder 847474001 F41.8 Cymbalta 60mg AM and 30mg PM Trazodone, ambien and benzo's discussed. Hyperglycemia 20561283 R 73.9 A1c 6.0 May 2019A1c 5.7 Mar diet/exerc ise Vitamin D deficiency 347 09926 E55.9 Low 27Add Weekly supplement [id number] Desiree Hightower MD Main Office [address] [place] [address] 08/27/2021 10:47:00 08/31/2021 16:03:11 Hypertensive disorder 09826906 I10 Continue medication s as below Order low salt diet Order home BP monitoring +Call the office if >140/80 consistent ly or any symptoms. +Call us immediatel y if >180/100 or head to ER w/ any symptoms Hyperlipidemia 86285093 E78.5 Continue below medication Discussed Tg 491 to 355 to 227 w/ diet changes and medicines Order low fat high fiber diet Order to call office if any side effects or issues. Vitamin D deficiency 347 29702 E55.9 Low 27Add Weekly supplement Hyperglycemia 78252633 R 73.9 A1c 6.0 May 2019A1c 5.7 Mar diet/exerc ise Chronic ob structive pulmonary disease 38830181 J44.9 h/o COPD worsening SOB in the past few months.Ref er to [employer] sed inhalers but given stress test positive for inducible ischemia I advised him NOT to use any until he talked w/ Dr. Donnelly (Cardiolog y again) Coronary arteriosclerosis 54561254 I25.10 h/o CAD w/ recnet worsening he was seen and had a positive stress test w/ Dr. Garcia pt no med changes made I advised close f/u w/ Dr. Donnelly If symptoms persist please call the office or return to clinic. If symptoms change or worsen call [facility] or go to ER. [id number] Desiree Hightower MD Main Office [address] [place] [address] 09/11/2021 09:29:31 11/26/2021 16:58:31 Hypertensive disorder 21736695 I10 Continue medication s as below Order low salt diet Order home BP monitoring +Call the office if >140/80 consistent ly or any symptoms. +Call us immediatel y if >180/100 or head to ER w/ any symptoms Hyperlipidemia 44996332 E78.5 Continue below medication Discussed Tg 491 to 355 to 227 w/ diet changes and Pravastati nJumped to 626. Per pt he had not fasted properly and had a large amount of animal crackers the night of his test. No abdominal pain or additional complaints . Repeat Lipid w/ true fasting in 1-2 weeks Order low fat high fiber diet Order to call office if any side effects or issues. Mixed anxi ety and depressive disorder 331327134 F41.8 Cymbalta 60mg AM and 30mg PM Trazodone, ambien and benzo's discussed. Vitamin D deficiency 347 00149 E55.9 Low 27 taking OTC 5000IU daily up to 44Pt took x 3 months the Weekly supplement then stopped. Hyperglycemia 47470972 R 73.9 A1c 6.0 May 2019A1c 5.21 Mar 2021 A1c 6.1 Aug2Cont diet/exerc ise [id number] Desiree Hightower MD Main Office [address] [place] [address] 03/08/2022 10:59:06 03/08/2022 11:51:40 Hypertensive disorder 69132284 I10 Continue medication s as below Order low salt diet Order home BP monitoring +Call the office if >140/80 consistent ly or any symptoms. +Call us immediatel y if >180/100 or head to ER w/ any symptoms Hyperlipidemia 14728918 E78.5 Continue below medication Pravastati n to Crestor and added fenofibrat e Jumped to 626. Per pt he had not fasted properly and had a large amount of animal crackers the night of his test. No abdominal pain or additional complaints . Repeat Lipid w/ true fasting in 1-2 weeks Order low fat high fiber diet Order to call office if any side effects or issues. Mixed anxi ety and depressive disorder 906187640 F41.8 Cymbalta 60mg AM and 30mg PM Trazodone, ambien and benzo's discussed. Hyperglycemia 22144622 R 73.9 A1c 6.0 May 2019A1c 5.21 Mar 2021 A1c 6.2 Annmarie 2022Cont diet/exerc ise Vitamin D deficiency 347 20238 E55.9 Low 27 taking OTC 5000IU daily up to 44 up to 62Pt no longer taking the Coronary arteriosclerosis 21113605 I25.10 h/o CAD w/ recent worsening he was seen and had a positive stress test w/ Dr. Garcia pt no med changes made I advised close f/u w/ Dr. Donnelly If symptoms persist please call the office or return to clinic. If symptoms change or worsen call [facility] or go to ER. Insomnia [id number] G47.0 0 Pt reports that he would like to proceed w/ known risksAble to repeat back risks of this medicine. Active or passive immunization [id number] Z23 2nd PNA shot due per pt did all his previous shots at [facility]. [id number] Desiree Hightower MD Main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
--- OUTSIDE RECORDS SUMMARY | 2025-01-28 17:19 | XMS_ITS | Clinical Summary ---
Author Organization [facility] Address [address] [place] [address] Care Team Providers Care English Language Learner Teacher Name Role Phone Aren Morales MD Primary Care Provider + Allergies Active Allergy Reactions Criticality Noted Date Comments Hornet Venom Anaphylaxis,Swelling High 01/11/2025 Venom-Honey Bee Other (See comments) Medium 07/08/2021 Medications amLODIPine (NORVASC) 2.5 mg tabletIndications:h ypertension Take 1 tablet (2.5 mg total) by mouth every morning 03/16/20 24 Active azaTHIOprine (IMURAN) 50 mg tabletIndications:U lcerative Colitis Take 1.5 tablets (75 mg total) by mouth nightly 10/05/19 17 Active vitamin B complex with vitamin C tabletIndications:V itamin Deficiency Prevention Take 1 tablet by mouth nightly Active calcium carbonate-vitamin D3 1500 mg (600 mg elemental) -200 units per tabletIndications:H ypocalcemia Prevention,Preventi on of Vitamin D Deficiency Take 1 tablet by mouth nightly Active clopidogreL (PLAVIX) 75 mg tabletIndications:T hrombosis Prevention after PCI,stent and bypass Take 1 tablet (75 mg total) by mouth every morning 12/05/19 24 Active cycloSPORINE (RESTASIS) 0.05 % ophthalmic emulsionIndications :dry eye Inject 1 drop into the eye every 12 (twelve) hours Active dorzolamide-timoloL (COSOPT) 22.3-6.8 mg/mL ophthalmic solutionIndications :open angle glaucoma Administer 1 drop into both eyes 2 (two) times a day 06/22/[address] (CYMBALTA) 60 mg capsuleIndications: Anxiety with Depression Take 1 capsule (60 mg total) by mouth every morning 08/29/19 25 Active EPINEPHrine 0.3 mg/0.3 mL auto-injection syringe Inject 0.3 mL (0.3 mg total) into the muscle as instructed as needed for anaphylaxis 08/29/19 25 Active fenofibrate nanocrystallized (TRICOR) 145 mg tabletIndications:h yperlipidemia Take 1 tablet (145 mg total) by mouth every morning 09/15/19 24 Active donepeziL (ARICEPT) 10 mg tabletIndications:m jazmín Take 1 tablet (10 mg total) by mouth nightly 12/14/19 25 Active memantine (NAMENDA) 10 mg tabletIndications: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 Take 1 tablet (10 mg total) by mouth every morning 12/14/19 25 Active latanoprost (XALATAN) 0.005 % ophthalmic solutionIndications :open angle glaucoma Administer 1 drop into both eyes nightly Active mesalamine (LIALDA) 1.2 gram EC tabletIndications:U lcerative Colitis Take 4 tablets (4.8 g total) by mouth every morning 07/19/20 14 Active rosuvastatin (CRESTOR) 20 mg tabletIndications:h yperlipidemia Take 1 tablet (20 mg total) by mouth nightly Active olmesartan (BENICAR) 5 mg tabletIndications:h ypertension Take 2 tablets (10 mg total) by mouth nightly Active traZODone (DESYREL) 50 mg tabletIndications:i nsomnia associated with depression Take 2 tablets (100 mg total) by mouth nightly Active herbal drugs tabletIndications:s upplement Take 1 tablet by mouth nightly Prevagen Active Spiriva Respimat 1.25 mcg/actuation inhalerIndications: Maintenance Therapy for Asthma Inhale 2 puffs every morning Active medical supply, miscellaneous (MISCELLANEOUS MEDICAL SUPPLY MISC)Indications:lo w O2 level Administer 2 L into affected nostril(s) nightly Home Oxygen 2L/NC Active methylPREDNISolone (MEDROL DOSEPACK) 4 mg Dosepack Take as directed on package 21 each 01/29/20 25 06/22/2 025 Active amoxicillin-clavula elaine (AUGMENTIN) 875-125 mg per tablet Take 1 tablet (875 mg of amoxicillin total) by mouth 2 (two) times a day for 5 days 10 tablet 01/29/20 25 Active HYDROcodone-acetami nophen (NORCO) 5-325 mg per tabletIndications:P ain Take 1 tablet by mouth every 6 (six) hours as needed for pain for up to 15 doses 15 tablet 01/29/20 Active aspirin 81 mg enteric coated tablet Discontin ued(Thera py completed ) B complex-liver extract capsule Take 1 capsule by mouth daily Discontin ued(Thera py completed ) cholecalciferol, vitamin D3, (D3-2000 ORAL) Take by mouth Discontin ued(Thera py completed ) amLODIPine (NORVASC) 5 mg tablet Take 1 tablet (5 mg total) by mouth daily 12/13/19 24 Discontin ued(Thera py completed ) budesonide-formoter oL (SYMBICORT) 80-4.5 mcg/actuation inhaler Inhale 2 puffs 2 (two) times a day Discontin ued(Thera py completed ) ciprofloxacin-dexAM ETHasone (CIPRODEX) otic suspension Administer 4 drops into each ear 2 (two) times a day 7.5 mL 3 11/17/19 25 Discontin ued(Thera py completed ) fluorouraciL (EFUDEX) 5 % cream Apply topically Discontin ued(Thera py completed ) folic acid (FOLVITE) 1 mg tablet Take 1 tablet (1,000 mcg total) by mouth daily 09/21/19 24 Discontin ued(Thera py completed ) HYDROcodone-acetami nophen (NORCO) 5-325 mg per tablet 01/11 Discontin ued(Thera py completed ) methotrexate 2.5 mg tablet Take 1 tablet (2.5 mg total) by mouth every 7 days 10/12/19 24 Discontin ued(Thera py completed ) vitamin B complex capsuleIndications: Vitamin Deficiency Prevention Take 1 capsule by mouth nightly With vitamin c 05/30/2 025 Discontin ued(Thera py completed ) Active Problems Problem Noted Date Diagnosed Date Sensorineural hearing loss, bilateral 07/24/2023 Encounters Date Type Department Care Team Description 01/28/2025 8:30 AM CDT Ancillary Procedure [facility] Imaging [address] [place] [address] Arrived 01/28/2025 7:30 AM CDT - 01/28/2025 9:35 AM CDT Surgery [facility] Operating Room [address] [place] [phone] Aren Lazo MD IMPLANTATION COCHLEAR DEVICE UNILATERAL. [05084 (CPT )] 01/28/2025 7:30 AM CDT Anesthesia Event [facility] Operating Room [address] [place] [address] Ata Vizcarra MD Botkin, Amanda Marie, NP 01/28/2025 5:43 AM CDT - 01/28/2025 10:17 AM CDT Hospital Encounter [facility] Operating Room [address] [place] [address] Aren Lazo MD Sensorineural hearing loss, bilateral [H90.3] (Primary Dx) Discharge Disposition: Discharge to home or self care 12/17/2024 Telephone [facility] Otolaryngology [address] [facility] [address], [address] [place] [address] Humera Ann CMA 12/14/2024 Documentation [facility] Otolaryngology [address], [address] [place] [address] Jayda Taylor CMA Telephone (Surgery questions) 12/14/2024 Telephone [facility] Otolaryngology [facility] [place] [address] Evelyne Pool MS 11/26/2024 2:29 PM CDT - 11/26/2024 11:59 PM CDT Hospital Encounter [facility] [address] [place] [address] Discharge Disposition: Discharge to home or self care 11/23/2024 Orders Only [facility] Otolaryngology [address], [address] [place] [phone] Zarina Mauro RN Sensorineural hearing loss, bilateral (Primary Dx); Cochlear implant status 11/19/2024 Documentation [facility] Otolaryngology [address], [address] [place] [address] Zarina Mauro RN cochlear implant pathway 11/16/2024 Telephone [facility] Otolaryngology [address], [address] [place] [address] Humera Ann CMA 11/16/2024 Orders Only [facility] Otolaryngology [address] [facility], [address] [place] [address] Humera Ann, LYNNETTE Sensorineural hearing loss, bilateral (Primary Dx); Imbalance 11/16/2024 Telephone [facility] Otolaryngology [address] [facility], [address] [place] [address] Humera Ann CMA 11/16/2024 Orders Only [facility] Otolaryngology [address], [address] [place] [address] Humera Ann, LYNNETTE 11/15/2024 1:33 PM CDT - 11/15/2024 11:59 PM CDT Hospital Encounter [facility] [address] [place] [address] Sensorineural hearing loss, bilateral Discharge Disposition: Discharge to home or self care 11/15/2024 11:40 AM CDT [facility] [address] [facility] [address] [place] [address] [place] [id number] Aren Lazo MD Sensorineural hearing loss, bilateral (Primary Dx) 11/15/2024 9:00 AM CDT Procedure visit [facility] Otolaryngology [facility] [address] [place] [address] [place] [address] Alena Li Au.D. Sensorineural hearing loss, bilateral (Primary Dx) from Last 3 Months Immunizations Immunization Administration Dates Next Due Influenza, Quadrivalent, Hig h Dose, Preservative Free, Intrr 06/17/2023,05/26/2022,05/25/2021,05/03 Influenza, Quadrivalent, Spl it, Preservative Free, Intramuscular 08/15/2015 Influenza, Trivalent, Adjuva nted, Intramuscular 05/29/2018 Influenza, Trivalent, High D ose, Split, Preservative Free, Intramuscular 05/09/2019,05/21/2017,05/26/2016,05/10 Influenza, Trivalent, IM (MDV) 07/01/2013,2011 Influenza, Unspecified 05/15/2024 Pneumococcal Conjugate PCV 13 05/28/2017 Pneumococcal Polysaccharide PPV23 03/08/2022 Td, adsorbed 07/01/2002 Tdap 05/02/2023 Surgical History Surgery Date Site/Laterality Comments COLONOSCOPY 08/15/2017 - 08/14/2018 COLONOSCOPY 08/15/2018 - 08/14/2019 COLONOSCOPY 08/15/2021 - 08/14/2022 CARDIAC STENT PLACEMENT 10/29/2021 CORONARY ARTERY BYPASS GRAFT 08/15/2006 - 08/14/2007 4 vessel SINUS SURGERY x3 VASECTOMY 08/15/1974 - 08/14/1975 Medical History Medical History Date Comments On home oxygen therapy 2L/NC nig htly Lung disease Depression Bradycardia COPD (chronic obstructive pulmonary disease) (HC C) Glaucoma First degree AV block CAD (coronary artery disease) Anxiety Family History Medical History Relation Name Comments Stomach cancer Brother Family histor y of malignant neoplasm of stomach - (Added by TW Conv) Diabetes Father Family history of diabetes mellitus - (Added by TW Conv) Heart attack Father Family history of myocardial infarction - (Added by TW Conv) Crohn's disease Mother Family histo ry of Crohn's disease - (Added by TW Conv) Stomach cancer Mother Family histor y of malignant neoplasm of stomach - (Added by TW Conv) Stomach cancer Sister Family histor y of malignant neoplasm of stomach - (Added by TW Conv) Anesthesia problems Neg Hx Relation Name Status Comments Brother Father Mother Sister Social History Tobacco Use Types Packs/Day Years [...] on file 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 Gender Identity Not on file Sexual Orientation Not on file Obstetrics History Last Filed Vital Signs Vital Sign Reading [...] Mass Index 29.08 01/28/2025 6:03 AM CDT Plan of Treatment Health Maintenance Due Date Last Done Comments Depression Screening 1942 Hepatitis B Screening 1960 Zoster Vaccine (1 of 2) 1961 Well Visit 65+ 2007 Covid-19 Vaccine (2023- 5 season) 2024 07/13/2023, 12/16/2022, 10/21/2022, Additional history exists Fall Risk Assessment 01/28/2026 01/28/2025 DTaP/Tdap/Td Vaccine (2 - Td or Tdap) 05/02/2033 05/02/2023, 07/01/2002 Pneumococcal vaccine 65+ Completed 03/08/2022, 05/15 Influenza Vaccine Completed 05/15/2024, , 05/26/2022, Additional history exists Goals Goal Patient Goal Type Associated Problems Recent Progress Patient-Stated? Author Autogenerat ed Goal Care Plan Autogenerated Problem No Mili Alcazar RN Medical Devices Implanted Type Area Mold Closer Helper Device Identifier Shelf Expiration Date Model / Serial / Lot Cochlear [employer] Implant Cochlear Cochlear Nucleus Profile Plus Slim Modiolar Electrode [id number] - [id number] - [id number] Implanted:Qty : 1 on 01/28/2025 by Aren Lazo MD at [facility] Right: Cochlea Cochlear [employer] [id number] 11/02/2026 [id number] / [id number] / Procedures Procedure Name Priority Date/Time Associated Diagnosis Comments XR SKULL LESS THAN 4 VIEWS IP Routine 01/28/2025 8:59 AM CDT TX AN PROCEDURE PLACEHOLDER Routine 01/28/2025 7:58 AM CDT TX AN ELECTIVE ENDOTRACHEAL AIRWAY Routine 01/28/2025 7:58 AM CDT NEURO MR OUTSIDE REFERENCE Routine 11/26/2024 2:[address] INTERNAL AUDITORY CANAL COCHLEAR IMPLANT WO CONTRAST Schedule Routine, Read Routine (OP Routine) 11/15/2024 2:37 PM CDT Sensorineural hearing loss, bilateral AUDBASE RESULTS 11/15/2024 8:45 AM CDT from Last 3 Months Results * XR Skull Less than 4 [...] No acute displaced fracture. Procedure Note Jona Singh, - 01/28/2025 EXAMINATION: XR SKULL LESS THAN 4 VIEWS HISTORY: Cochlear implant COMPARISON: MRI dated 11/23/[address] dated 5 FINDINGS: New right cochlear implant in expected position with intact leads. No acute displaced fracture. IMPRESSION: 1. New right cochlear implant expected position. Electronically signed by: Jona Singh D.O. us Aren Lazo MD IMG XR PROCEDURES Final Re sult * TX AN ELECTIVE ENDOTRACHEAL AIRWAY, TX AN PROCEDURE PLACEHOLDER (01/28/2025 7:58 AM CDT) Narrative Minda Brizuela CRNA - 01/28/2025 7:58 AM CDT Minda Brizuela CRNA 01/28/2025 7:58 AM Airway Patient location: OR Urgency: elective Date/time: 01/28/2025 7:44 AM Indications for airway management: anesthesia Difficult airway: no Staff: Supervising provider: Ata Vizcarra MD Placed by: BOX CLOSING MACHINE OPERATOR: Minda Brizuela CRNA Emergent airway documentation: Risks [...] Vizcarra MD ANESTHESIA ORDERABLES Fin al Result * Neuro MR Outside Reference (11/26/2024 2:29 PM CDT) Impressions [facility] - 11/26/2024 2:29 PM CDT These images are for Reference purposes only and have not been reviewed by [facility] Radiology. There will be no report generated by a [facility] Radiologist. Narrative [facility] - 11/26/2024 2:29 PM CDT EXAMINATION: Images For Reference Purposes Only us Aren Lazo MD IMG MRI PROCEDURES Final R esult [facility] * CT Internal Auditory Canal Cochlear Implant WO Contrast (11/15/2024 2:37 PM CDT) Anatomical Region Laterality Modality Head and Neck N/A Computed Tomogra phy 11/15/2024 3:44 PM CDT Impressions 11/15/2024 4:03 PM CDT Mild thinning of the bilateral superior semicircular canals with a questionable dehiscence. Dictated by: Chioma Terrazas D.O. The radiology attending physician has personally reviewed this study, and had reviewed and/or edited this written report and agrees with it. Electronically signed by: Monika Quevedo M.D. Narrative 11/15/2024 4:03 PM CDT EXAMINATION: CT of the temporal bones without contrast HISTORY: Bilateral sensorineural hearing loss. Patient is cochlear implant candidate. TECHNIQUE: CT of the temporal bones was performed according to the standard protocol without intravenous contrast. COMPARISON: None Available. FINDINGS: The limited examination of the brain is normal. The scalp is normal. The squamosal portions of the temporal bones are normal. The pinnae are normal. The external auditory canals, including cartilaginous and bony portions, are normal. There is no fluid or mass in the middle ear cavities. The middle ear ossicles are intact, and there are no erosions. The sinus tympani and pyramids are normal. The facial nerves, including labyrinthine, geniculate, horizontal, and descending segments, are normal. The bony labyrinths including the cochlea, and vestibule bilaterally are normal without evidence of dehiscence or congenital malformation. Mild thinning of the the bilateral superior semicircular canal. The bone is normal without evidence of otosclerosis. The internal auditory canals are normal. The vestibular aqueducts are normal. The cochlear aqueducts are normal. The mastoids are well developed without evidence of fluid or fracture. Partially visualized postsurgical changes of functional sinus endoscopic surgery. Mucous retention cyst of the right maxillary sinus. Procedure Note Monika Quevedo MD - 11/15/2024 EXAMINATION: CT of the temporal bones without contrast HISTORY: Bilateral sensorineural hearing loss. Patient is cochlear implant candidate. TECHNIQUE: CT of the temporal bones was performed according to the standard protocol without intravenous contrast. COMPARISON: None Available. FINDINGS: The limited examination of the brain is normal. The scalp is normal. The squamosal portions of the temporal bones are normal. The pinnae are normal. The external auditory canals, including cartilaginous and bony portions, are normal. There is no fluid or mass in the middle ear cavities. The middle ear ossicles are intact, and there are no erosions. The sinus tympani and pyramids are normal. The facial nerves, including labyrinthine, geniculate, horizontal, and descending segments, are normal. The bony labyrinths including the cochlea, and vestibule bilaterally are normal without evidence of dehiscence or congenital malformation. Mild thinning of the the bilateral superior semicircular canal. The bone is normal without evidence of otosclerosis. The internal auditory canals are normal. The vestibular aqueducts are normal. The cochlear aqueducts are normal. The mastoids are well developed without evidence of fluid or fracture. Partially visualized postsurgical changes of functional sinus endoscopic surgery. Mucous retention cyst of the right maxillary sinus. IMPRESSION: Mild thinning of the bilateral superior semicircular canals with a questionable dehiscence. Dictated by: Chioma Terrazas D.O. The radiology attending physician has personally reviewed this study, and had reviewed and/or edited this written report and agrees with it. Electronically signed by: Monika Quevedo M.D. Aren Lazo MD IMG CT PROCEDURES Final Re sult * [facility] Results (11/15/2024 8:45 AM CDT) Provider Scanning AUDIOLOGY SERVICES ORDERABLES Edited Result - Final from Last 3 Months Additional Health Concerns Active Problems Noted Date Diagnosed Date Autogenerated Problem 01/28/2025 Insurance [facility] MEDICARE Care Teams English Language Learner Teacher Relationship Specialty Start Date End Date Aren Morales MD [address] [facility] [address] [facility] [place] [address] PCP - General 02/23/17
--- OUTSIDE RECORDS SUMMARY | 2025-01-28 17:19 | XMS_ITS | Encounter Summary ---
Author Organization [facility] Address [address] [place] [address] Care Team Providers Care Comber Setter Name Role Phone Kacey SHIN MD, Julius Avendaño Primary Care Provider [phone] Encounter Details Date Type Department Care Team (Late st Contact Info) Description 12/29/2017 Documentation [facility] Gastroenterology [address] [place] [address] Ellis Freedman MD Social History Tobacco Use Types Packs/Day Years Used Date Smoking Tobacco: Former Cigarettes 1 957 - 2006 Smokeless Tobacco: Never [...] Info) Description 02/26/2025 11:00 AM CDT Appointment [facility] [address] [place] [phone] Judy Bess PA [address] [place] [address] 03/28/2025 2:00 PM CDT Office Visit [facility] Sleep Medicine Professional Office Building [address] [facility] [address] [place] [phone] Lizeth Barreto MD [address] [place] [address], [address] [place] [address] 06/26/2025 1:10 PM WHOLESALE MANAGER Office Visit [facility] [address] [place] [address] [place] [phone] Kiya Anguiano NP [address] [place] [address] [place] [address] 07/03/2025 11:10 AM WHOLESALE MANAGER Office Visit [facility] Pulmonology [address] [place] [phone] Tita Graves NP [address] [place] [phone] documented as of this encounter Visit Diagnoses Not on filedocumented in this encounter Additional Health Concerns Infection Onset Date Last Indicated Resolved Time R/O COVID-19 09/01/2021 09/01/2021 09/01/2021 9:10 PM WHOLESALE MANAGER R/O C. difficile 06/09/2023 06/14/2023 06/14/2023 8:50 PM CDT R/O GI Infection 06/13/2023 06/13/2023 06/13/2023 5:51 PM CDT C. difficile Carrier 06/14/2023 06/14/2023 023 12:21 AM WHOLESALE MANAGER R/O C. difficile 06/28/2023 06/30/2023 06/30/2023 3:55 PM WHOLESALE MANAGER R/O C. difficile 08/04/2023 08/05/2023 08/05/2023 8:55 PM WHOLESALE MANAGER C. difficile Carrier 08/05/2023 08/05/2023 024 12:21 AM WHOLESALE MANAGER R/O C. difficile 08/19/2023 08/22/2023 08/22/2023 4:14 PM WHOLESALE MANAGER R/O COVID-19 08/30/2023 08/30/2023 08/30/2023 4:19 PM WHOLESALE MANAGER R/O C. difficile 02/23/2024 11/21/2024 02/28/2024 12:21 AM CDT R/O C. difficile 10/24/2024 11/21/2024 10/29/2024 12:21 AM CDT documented as of this encounter Care Teams Comber Setter Relationship Specialty Start Date End Date Julius Erazo II, MD [address] [place] [address] PCP - General Vehicle Fare Collector 02/02/17 documented as of this encounter
--- OUTSIDE RECORDS SUMMARY | 2025-01-28 17:19 | XMS_ITS | Encounter Summary ---
Author Organization [facility] Healthcare Address [address] [place] [address] Care Team Providers Care Medical Field Representative Name Role Phone Aren Morales MD Primary Care Provider + Reason for Visit * Auth/Cert (Routine) Specialty Diagnoses / Procedures Referred By Contac t Referred To Contact Diagnoses Sensorineural hearing loss (SNHL) of both ears SNHL bilateral Procedures NE COCHLEAR DEVICE IMPLANTATION W/WO MASTOIDECTOMY NE COCHLEAR DEVICE IMPLANTATION W/WO MASTOIDECTOMY IMPLANTATION COCHLEAR DEVICE UNILATERAL. Aren Lazo MD [address] [place] [address] Phone: tel: fax: Referral ID Status Reason Start Date Expiration Date Visits Re quested Visits Authorized [id number] 11/16/2024 1 1 Encounter Details Date Type Department Care Team (Late st Contact Info) Description 01/28/2025 7:30 AM CDT - 01/28/2025 9:35 AM CDT Surgery [facility] Operating Room [address] [place] [phone] Aren Lazo MD [address] [place] [address] IMPLANTATION COCHLEAR DEVICE UNILATERAL. 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 Never 01/28/2025 5:50 AM CDT Verito Camacho RN Q2: How many drinks [...] device isactivated, you will work with the process safety specialist on hearing rehabilitation. This program is time intensive at first and these appointments should be coordinated with your cochlear implant process safety specialist. Your surgeon may want to see you [...] problems or questions. The office number is [phone] and the after-hours exchange is [phone]. documented in this encounter Medications at Time [...] AM CDT Source Note - Arsenio Hui INTERNAL CARVER - 01/16/2025 4:48 PM CDT Images from the original note were not included. Center for Preoperative Assessment and Planning Preoperative Evaluation Record Evaluation type/location: TPAP from [facility] Planned procedure site: [facility] Date: 01/16/25 NOTE: This note represents [...] degree AV block) - bradycardia. Pertinent negatives: SC ; valvular heart disease; atrial fibrillation; pacemaker/ICD; [...] tracheostomy Comments: F/b pulmonology last OV in [facility] 10/17/24 Hepatic / Heme Pertinent negatives: liver [...] by telephone and in writing sent via USPS mail. Patient verbalized understanding of instructions. Blood [...] Please call the CPAP chart room clinician ([phone]) with any questions or to discuss alternative management plans. The patient is currently scheduled for their procedure at [facility]. The case was discussed amongst myself and CPAP attending Dr. Garcia due to 2L O2 at night, CAD, COPD. After discussion, it is felt that the patient is an appropriate candidate for the procedure at [facility]. Please note, the patient is on [...] mg/mL ophthalmic solution 01/11/2025 06/22/23 -- Provider, MD Rose Mary DULoxetine DR (CYMBALTA) 60 mg capsule 01/11/2025 [...] (CRESTOR) 20 mg tablet 01/10/2025 -- -- Provider, Historical MD Spiriva Respimat 1.25 mcg/actuation inhaler 01/11/2025 [...] solution medical supply, miscellaneous (MISCELLANEOUS MEDICAL SUPPLY MISC) memantine (NAMENDA) 10 mg tablet mesalamine (LIALDA) [...] right side Mastoidectomy with cochlear implantation (CPT 35050) SURGEON: Aren Lazo MD RESIDENT PHYSICIAN: Eugenia [...] posterosuperiorly for the proposed placement of the exchange consultant/stimulator. The operating microscope was introduced into the [...] portions of the procedure. Aren Lazo M.D. Household Assistant Otology & Neurotology I Department of Otolaryngology [employer] [facility]: ; Monotyper: E-mail: [email or web address] * Pre-Procedure Instructions - Arsenio Hui NP - 01/16/2025 5:01 PM CDT Center for Preoperative Assessment and Planning CPAP Clinic Location: [facility] The night before your surgery: * Do [...] Planning Perioperative Nursing Note PAP Modalities - [facility]: Telephone Preoperative Evaluation ([facility]) - TELEPHONE ONLY, NO PHYSICAL EXAM [...] nightly medical supply, miscellaneous (MISCELLANEOUS MEDICAL SUPPLY MIS) Administer 2 L into affected nostril(s) nightly [...] expects to be discharged to: Private residence (Medical Office Receptionist and regulatory affairs intern: Daughter) EPIC CADENCE ANALYST NO ADDITIONAL COMMENTS/ FOLLOW UP * Pre-Procedure [...] remove nail coverings, artificial nails and nail belarusian prior to the day of surgery. This is to lower your risk of infection and to allow the day of surgery team to monitor your oxygen levels. You should leave your valuables and any jewelry at home. No metal or piercings are allowed in the operating room. You should bring your insurance card, a photo ID (example: Medical Office Receptionist's License) and a method of payment for [...] Chart. If you are having surgery at [facility], please arrive on the day of surgery [...] Pathway to Excellent Care by the followinglink: [email or web address] How To Prepare Your Skin For Surgery [...] Remove nail coverings, artificial nails and nail belarusian. The Morning of Surgery: Take a shower [...] questions, please call the CPAP Staff at [phone], Tuesday-Tuesday 8am-4:30pm. All patients should read the below section: Information on [facility]: Please view [email or web address] (Patient & Visitor Information) for additional details regarding Advanced Directive forms, AWARE, directions, parking information, lodging, Internet access, dining and more. Information on [facility] or [facility] ([facility]): Please view [email or web address] (Patient and Visitor Information) for parking, directions, lodging and more. For MyChart information, to activate account or password recovery, please go to [email or web address] or call [phone] (toll-free: [phone]), Tue- Tuesday 8am-5pm. Information for Suicide Prevention: National Suicide Prevention Lifeline (3-517- 824-TALK (9564)) or call or text 178. Chat resources: Pogoseat.org. Surgery Times: For patients having surgery @ [facility] or [facility] ([facility]), if your surgeon's office has not notified you of your surgery time by NOON THE BUSINESS DAY BEFORE your surgery, please call your surgeon's office Aren Lazo MD . You may also call [phone] and ask for your surgeon's office. For patients having surgery @ [facility], if your surgeon's office has not notified you of your surgery time by 2pm THE BUSINESS DAY BEFORE your surgery, please call your surgeon's office Aren Lazo MD . You may also call the surgery center at [phone] and ask for your surgeon's office. For patients having [facility] @ [facility], if your surgeon's office has not notified you of your surgery time by NOON THE BUSINESS DAY BEFORE your surgery, please call the surgery center [phone]. The Center for Preoperative Assessment & Planning ([facility]) does not provide arrival times for [...] bilateral [H90.3]- Primary Sensorineural hearing loss, bilateral Sensorineural hearing loss (SNHL) of both ears documented in this encounter Administered Medications Inactive Administered Medications - up to 3 most recent administrations Medication Order MAR Action Action Date Dose Rate Site acetaminophen (TYLENOL) tablet 500 mg 500 mg, oral, Once, On Tue01/28/25 at 0615, For 1 dose, Pre-Op, Indications: Pre-Emptive AnalgesiaIndication s:Pre-Emptive Analgesia Given 01/28/2025 6:13 AM CDT 500 mg bacitracin-polymyxi n B (POLYSPORIN) 500-10,000 unit/gram ointment tube As needed, Starting on Tue01/28/25 at 0823, Intra-Op Given 01/28/2025 8:23 AM CDT 1 Application Surgical Site ciprofloxacin (CIPRO) 400 mg/200 mL in dextrose 5% (premix) Administer over 60 Minutes, Continuous PRN, Starting on Tue01/28/25 at 0748, Intra-Op New Bag 01/28/2025 7:48 AM CDT 400 mg Surgical Site dexAMETHasone (DECADRON) 4 mg/mL injection Administer over 2 Minutes, As needed, Starting on Tue01/28/25 at 0748, Intra-Op Given 01/28/2025 7:48 AM CDT 4 mg Surgical Site Lactated Ringer's (LR) infusion 30 mL/hr, intravenous, Continuous, Starting on Tue01/28/25 at 0615, Pre-Op Rate/Dose Verify 01/28/2025 7:30 AM CDT 30 mL/hr New Bag 01/28/2025 6:14 AM CDT 30 mL/hr 30 mL/hr lidocaine-EPINEPHrine (XYLOCAINE with EPI) 1 %-1:100,000 injection As needed, Starting on Tue01/28/25 at 0748, Intra-Op, Indications: Administration of Local AnesthesiaIndications:Administrati on of Local Anesthesia Given 01/28/2025 7:48 AM CDT 10 mL Surgical Site metoclopramide (REGLAN) 5 mg/mL injection 10 mg [...] restlessness, followed by drowsiness., Indications: gastroesophageal reflux diseaseIndications:gastroesophagea l reflux disease Given 01/28/2025 6:13 AM CDT 10 mg sodium chloride 0.9% irrigation As needed, Starting on 01/28/25 at 0748, Intra-Op Given 01/28/2025 8:15 AM CDT 3,000 mL Surgical Site Given 01/28/2025 7:48 AM CDT 500 mL Guzman rgical Site documented in this encounter Discontinued Medications Medication [...] every morning 12/13/2024 donepeziL (ARICEPT) 10 mg tabletIndications:m jazmín Take [...] (EFUDEX) 5 % cream Apply topically 0 5/30/202 5 added in this encounter Active and [...] %) nebulizer solution 2.5 mg 1 01/28/2025 diphenhydrAMINE (BENADRYL) 5 0 mg/mL injection 12.5 mg 1 01/28/2025 famotidine (PEPCID) tablet 20 mg 1 01/29/20 fentaNYL (SUBLIMAZE) preserv ative free injection 25 mcg 01/28/2025 fentaNYL (SUBLIMAZE) preserv ative free injection 50 mcg 1 01/28/2025 HYDROcodone-acetaminophen (N ORCO) 5-325 mg per tablet 1 tablet 1 01/28/2025 lidocaine (PF) (XYLOCAINE) 1 0 mg/mL (1 %) preservative free injection 2-10 mg 1 01/28/2025 naloxone (NARCAN) 0.4 mg/mL injection 0.04-0.4 mg 1 01/28/2025 ondansetron (ZOFRAN) injection 4 mg 01/28 prochlorperazine (COMPAZINE) injection 5 mg 01/28/2025 sodium chloride 0.9% flush 0.5-20 mL 2 01/13 documented in this encounter Care Teams Medical Field Representative Relationship Specialty Start Date End Date Aren Morales MD [address] [place] [address] PCP - General 02/23/17 documented as of this encounter
--- OUTSIDE RECORDS SUMMARY | 2025-01-28 17:19 | XMS_ITS | Referral Summary ---
Author Organization [facility] Address [address] [address] Care Team Providers Care Furnace Roaster Name Role Phone Aren Morales MD Primary Care Provider + Encounters Date Type Department Care Team Description 01/28/2025 8:30 AM CDT Ancillary Procedure [facility] Imaging [address] [place] [phone] Arrived 01/28/2025 7:30 AM CDT - 01/28/2025 9:35 AM CDT Surgery [facility] Operating Room [address] [facility] [place] [phone] Aren Lazo MD IMPLANTATION COCHLEAR DEVICE UNILATERAL. [56504 (CPT )] 01/28/2025 7:30 AM CDT Anesthesia Event [facility] Operating Room [address] [facility] [place] [phone] Ata Vizcarra MD Botkin, Amanda Marie, NP 01/28/2025 5:43 AM CDT - 01/28/2025 10:17 AM CDT Hospital Encounter [facility] Operating Room [address] [facility] [place] [phone] Aren Lazo MD Sensorineural hearing loss, bilateral [H90.3] (Primary Dx) Discharge Disposition: Discharge to home or self care 12/17/2024 Telephone [facility] Otolaryngology [address] [facility] [place] [address] Humera Ann CMA 12/14/2024 Documentation [facility] Otolaryngology [address] [facility] [facility] [place] [phone] Jadya Taylor CMA Telephone (Surgery questions) 12/14/2024 Telephone [facility] Otolaryngology [address] [place] [address] Evelyne Pool, [place] 11/26/2024 2:29 PM CDT - 11/26/2024 11:59 PM CDT Hospital Encounter [facility] [address] [place], [place] [phone] Discharge Disposition: Discharge to home or self care 11/23/2024 Orders Only [facility] Otolaryngology [facility] [address] [facility] [place] [address] Zarina Mauro RN Sensorineural hearing loss, bilateral (Primary Dx); Cochlear implant status 11/19/2024 Documentation [facility] Otolaryngology [facility] [address] [facility] [place] [phone] Zarina Mauro RN cochlear implant pathway 11/16/2024 Telephone [facility] Otolaryngology [facility] [address] [facility] [place] [address] Humera Ann CMA 11/16/2024 Orders Only [facility] Otolaryngology [facility] [address] [facility] [place] [address] Humera Ann CMA Sensorineural hearing loss, bilateral (Primary Dx); Imbalance 11/16/2024 Telephone [facility] Otolaryngology [address] [facility] [place] [address] Humera Ann CMA 11/16/2024 Orders Only [facility] Otolaryngology [address] [facility] [place] [address] Humera Ann CMA 11/15/2024 1:33 PM CDT - 11/15/2024 11:59 PM CDT Hospital Encounter [facility] [address] [place] [address] Sensorineural hearing loss, bilateral Discharge Disposition: Discharge to home or self care 11/15/2024 11:40 AM CDT Office [facility] [address] [facility] [address] [place] [phone] Aren Lazo MD Sensorineural hearing loss, bilateral (Primary Dx) 11/15/2024 9:00 AM CDT Procedure visit [facility] Otolaryngology [address] [place] [address] Medicine 11th [place] [address] [place] [phone] Alena Li Au.D. Sensorineural hearing loss, bilateral (Primary Dx) from Last 3 Months Allergies Active Allergy Reactions Criticality Noted Date [...] Active medical supply, miscellaneous (MISCELLANEOUS MEDICAL SUPPLY [facility])Indications:lo w O2 level Administer 2 L into affected nostril(s) nightly Home Oxygen 2L/NC Active methylPREDNISolone (MEDROL DOSEPACK) 4 mg Dosepack Take as directed on package 21 each 01/29/20 25 Active amoxicillin-clavula elaine (AUGMENTIN) 875-125 mg per tablet Take 1 tablet (875 mg of amoxicillin total) by mouth 2 (two) times a day for 5 days 10 tablet 01/29/20 25 Active HYDROcodone-acetami nophen (NORCO) 5-325 mg per tabletIndications:P ain Take 1 tablet by mouth every 6 (six) hours as needed for pain for up to 15 doses 15 tablet 01/29/20 25 Active aspirin 81 mg enteric coated tablet [...] by mouth every 7 days 10/12/19 24 025 Discontin ued(Thera py completed ) vitamin B complex capsuleIndications: Vitamin Deficiency Prevention Take 1 capsule by mouth nightly With vitamin c 025 Discontin ued(Thera py completed ) Active Problems Problem Noted Date Diagnosed Date Sensorineural hearing loss, bilateral 07/24/2023 Immunizations Immunization Administration Dates Next Due Influenza, Quadrivalent, Hig h Dose, Preservative Free, Intrr 06/17/2023,05/26/2022,05/25/2021,05/03 Influenza, Quadrivalent, Spl it, Preservative Free, Intramuscular 08/15/2015 Influenza, Trivalent, Adjuva nted, Intramuscular 05/29/2018 Influenza, Trivalent, High D ose, Split, Preservative Free, Intramuscular 05/09/2019,05/21/2017,05/26/2016,05/10 Influenza, Trivalent, IM (MDV) 07/01/2013,2011 Influenza, Unspecified 05/15/2024 Pneumococcal Conjugate PCV 13 05/28/2017 Pneumococcal Polysaccharide PPV23 03/08/2022 Td, adsorbed 07/01/2002 Tdap 05/02/2023 Social History Tobacco Use Types Packs/Day Years Used Date Smoking Tobacco: Former Cigarettes Q uit: 2006 Smokeless Tobacco: Never Tobacco Cessation:Counseling Given: Not [...] on file 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 Author Autogenerat ed Goal Care Plan Autogenerated Problem No Mili Alcazar RN Medical Devices Implanted Type Area Senior Ssis Developer Device Identifier Shelf Expiration Date Model / Serial / Lot Cochlear [employer] Implant Cochlear Cochlear Nucleus Profile Plus Slim Modiolar Electrode [id number] - [id number] - [id number] Implanted:Qty : 1 on 01/28/2025 by Aren Lazo MD at [facility] Right: Cochlea Cochle[employer] [id number] 11/02/2026 [id number] / [id number] / Procedures Procedure Name Priority Date/Time Associated Diagnosis Comments XR SKULL LESS THAN 4 VIEWS IP Routine 01/28/2025 8:59 AM CDT OH AN PROCEDURE PLACEHOLDER Routine 01/28/2025 7:58 AM CDT OH AN ELECTIVE ENDOTRACHEAL AIRWAY Routine 01/28/2025 7:58 [...] IMG XR PROCEDURES Final Re sult * OH AN ELECTIVE ENDOTRACHEAL AIRWAY, OH AN PROCEDURE PLACEHOLDER (01/28/2025 7:58 AM CDT) Narrative Minda Brizuela CRNA - 01/28/2025 7:58 AM CDT Minda Brizuela CRNA 01/28/2025 7:58 AM Airway Patient location: OR Urgency: elective Date/time: 01/28/2025 7:44 AM Indications for airway management: anesthesia Difficult airway: no Staff: Supervising provider: Ata Vizcarra MD Placed by: CEMETERY VAULT INSTALLER: Minda Brizuela CRNA Emergent airway documentation: Risks [...] Outside Reference (11/26/2024 2:29 PM CDT) Impressions [facility] - 11/26/2024 2:29 PM CDT These images are for Reference purposes only and have not been reviewed by [facility] Radiology. There will be no report generated by a [facility] Radiologist. Narrative [facility] - 11/26/2024 2:29 PM CDT EXAMINATION: Images [...] with a questionable dehiscence. Dictated by: Chioma eTrrazas D.O. The radiology attending physician has personally [...] it. Electronically signed by: Monika Quevedo M.D. us Aren Lazo MD IMG CT PROCEDURES Final Re sult * [facility] Results (11/15/2024 8:45 AM CDT) Provider Scanning AUDIOLOGY SERVICES ORDERABLES Edited Result - Final from Last 3 Months Additional Health Concerns Active Problems Noted Date Diagnosed Date Autogenerated Problem 01/28/2025 Insurance [facility] Care Teams Furnace Roaster Relationship Specialty Start Date End Date Aren Morales MD [address] [facility] [address] PCP - General 02/23/17
--- OUTSIDE RECORDS SUMMARY | 2025-01-28 17:19 | XMS_ITS | Encounter Summary ---
Author Organization [facility] Address [address] [place] [address] Care Team Providers Care Washing And Screening Plant Supervisor Name Role Phone Kacey SHIN MD, Julius Avendaño Primary Care Provider [phone] Encounter Details Date Type Department Care Team (Late st Contact Info) Description 12/29/2017 Orders Only [facility] Pulmonology [address] [place] [phone] Trinity Barrios, FOOD SERVICE HELPER Chronic obstructive pulmonary disease, unspecified COPD type (CMS/HCC) ([facility]) Social History Tobacco Use Types Packs/Day Years Used Date Smoking Tobacco: Former Cigarettes 1 7 - 2006 Smokeless Tobacco: Never Alcohol Use [...] Info) Description 02/26/2025 11:00 AM CDT Appointment [facility] [address] [place] [phone] Judy Bess PA [address] [place] [address] 03/28/2025 2:00 PM CDT Office Visit [facility] Sleep Medicine Professional Office Building [address] [place] [phone] Lizeth Barreto MD [address] [place] [address] 06/26/2025 1:10 PM NET APPLICATIONS DEVELOPER Office Visit [facility] Gastroenterology [address] [place] [address] [place] [phone] Kiya Anguiano NP [address] [place] [address] [place] [address] 07/03/2025 11:10 AM NET APPLICATIONS DEVELOPER Office Visit [facility] Pulmonology [address] [place] [phone] Tita Graves NP [address] [place] [address] documented as of this encounter Visit Diagnoses Diagnosis Chronic obstructive pulmonary disease, unspecified COPD type (HCC) documented in this encounter Additional Health Concerns Infection Onset Date Last Indicated Resolved Time R/O COVID-19 09/01/2021 09/01/2021 09/01/2021 9:10 PM NET APPLICATIONS DEVELOPER R/O C. difficile 06/09/2023 06/14/2023 06/14/2023 8:50 PM CDT R/O GI Infection 06/13/2023 06/13/2023 06/13/2023 5:51 PM CDT C. difficile Carrier 06/14/2023 06/14/2023 023 12:21 AM NET APPLICATIONS DEVELOPER R/O C. difficile 06/28/2023 06/30/2023 06/30/2023 3:55 PM NET APPLICATIONS DEVELOPER R/O C. difficile 08/04/2023 08/05/2023 08/05/2023 8:55 PM NET APPLICATIONS DEVELOPER C. difficile Carrier 08/05/2023 08/05/2023 024 12:21 AM NET APPLICATIONS DEVELOPER R/O C. difficile 08/19/2023 08/22/2023 08/22/2023 4:14 PM NET APPLICATIONS DEVELOPER R/O COVID-19 08/30/2023 08/30/2023 08/30/2023 4:19 PM NET APPLICATIONS DEVELOPER R/O C. difficile 02/23/2024 11/21/2024 02/28/2024 12:21 AM CDT R/O C. difficile 10/24/2024 11/21/2024 10/29/2024 12:21 AM CDT documented as of this encounter Care Teams Washing And Screening Plant Supervisor Relationship Specialty Start Date End Date Julius Erazo II, MD [address] [place] [address] PCP - General Np 02/02/17 documented as of this encounter
--- OUTSIDE RECORDS SUMMARY | 2025-01-28 17:19 | XMS_ITS | Encounter Summary ---
Author Organization [facility] Address [address] [place] [address] Care Team Providers Care Candle Pourer Name Role Phone Kacey SHIN MD, Julius Avendaño Primary Care Provider [phone] Reason for Visit * Reason Comments Med Refill Encounter Details Date Type Department Care Team (Late Contact Info) Description 01/19/2019 Refill [facility] Medical [facility] Gastroenterology [address] [place] [address] Leatha Morin, PAYMENT MANAGER Encounter for screening colonoscopy; History of ulcerative colitis Social History Tobacco [...] encounter Miscellaneous Notes * Telephone Encounter - Codie Freeman CMA - 01/22/2019 7:52 AM CDT Please advise documented in this encounter Plan of Treatment Upcoming Encounters Date Type Department Care Team (Late Contact Info) Description 02/26/2025 11:00 AM CDT Appointment [address] [phone] Judy Bess PA [address] [place] [address] 03/28/2025 2:00 PM CDT Office Visit [facility] Sleep Medicine Professional Office Building [address] [place] [phone] Lizeth Barreto MD [address] [place] [address] 06/26/2025 1:10 PM FILLING WINDER Office Visit [facility] Gastroenterology [address] [place] [address] [place] [phone] Kiya Anguiano NP [address] [place] [address] [place] [address] 07/03/2025 11:10 AM FILLING WINDER Office Visit [facility] Pulmonology [address] [place] [phone] Tita Graves NP [address] [place] [address] documented as of this encounter Visit Diagnoses Diagnosis Encounter for screening colonoscopy History of ulcerative colitis documented in this encounter Additional Health Concerns Infection Onset Date Last Indicated Resolved Time R/O COVID-19 09/01/2021 09/01/2021 09/01/2021 9:10 PM FILLING WINDER R/O C. difficile 06/09/2023 06/14/2023 06/14/2023 8:50 PM CDT R/O GI Infection 06/13/2023 06/13/2023 06/13/2023 5:51 PM CDT C. difficile Carrier 06/14/2023 06/14/2023 023 12:21 AM FILLING WINDER R/O C. difficile 06/28/2023 06/30/2023 06/30/2023 3:55 PM FILLING WINDER R/O C. difficile 08/04/2023 08/05/202308/0508/05/2023 8:55 PM FILLING WINDER C. difficile Carrier 08/05/2023 08/05/2023 024 12:21 AM FILLING WINDER R/O C. difficile 08/19/2023 08/22/2023 08/22/2023 4:14 PM FILLING WINDER R/O COVID-19 08/30/2023 08/30/2023 08/30/2023 4:19 PM FILLING WINDER R/O C. difficile 02/23/2024 11/21/2024 02/28/2024 12:21 AM CDT R/O C. difficile 10/24/2024 11/21/2024 10/29/2024 12:21 AM CDT documented as of this encounter Care Teams Candle Pourer Relationship Specialty Start Date End Date Julius Erazo II, MD [address] [place] [address] PCP - General Furnace Mechanic Helper 02/02/17 documented as of this encounter
--- OUTSIDE RECORDS SUMMARY | 2025-01-28 17:20 | XMS_ITS | Encounter Summary ---
Author Organization [facility] Address [address] [place] [address] Care Team Providers Care Product Safety Lead Name Role Phone Kacey SHIN MD, Julius Avendaño Primary Care Provider [phone] Encounter Details Date Type Department Care Team (Late st Contact Info) Description 03/24/2020 Orders Only [facility] Medical [facility] Pulmonology [address] [place] [address] [phone] Trinity Barrios, JET ENGINE MECHANIC Chronic obstructive pulmonary disease, unspecified COPD type (HCC) Social History Tobacco Use Types Packs/Day [...] CDT Appointment [facility] [address] [place] [phone] Judy Bess PA [address] [place] [address] 03/28/2025 2:00 PM CDT Office Visit [facility] Sleep Medicine Professional Office Building [address] [place] [address] [phone] Lizeth Barreto MD [address] [place] [address] 06/26/2025 1:10 PM INSTRUCTIONAL SERVICES SPECIALIST Office Visit [facility] Gastroenterology [address] [place] [address] [place] [phone] Kiya Anguiano NP [address] [place] [address] [place] [address] 07/03/2025 11:10 AM INSTRUCTIONAL SERVICES SPECIALIST Office Visit [facility] Pulmonology [address] [place] [address] [phone] Tita Graves NP [address] [place] [phone] documented as of this encounter Visit Diagnoses Diagnosis Chronic obstructive pulmonary disease, unspecified COPD type (HCC) documented in this encounter Additional Health Concerns Infection Onset Date Last Indicated Resolved Time R/O COVID-19 09/01/2021 09/01/2021 09/01/2021 9:10 PM INSTRUCTIONAL SERVICES SPECIALIST R/O C. difficile 06/09/2023 06/14/2023 06/14/2023 8:50 PM CDT R/O GI Infection 06/13/2023 06/13/2023 06/13/2023 5:51 PM CDT C. difficile Carrier 06/14/2023 06/14/2023 023 12:21 AM INSTRUCTIONAL SERVICES SPECIALIST R/O C. difficile 06/28/2023 06/30/2023 06/30/2023 3:55 PM INSTRUCTIONAL SERVICES SPECIALIST R/O C. difficile 08/04/2023 08/05/2023 08/05/2023 8:55 PM INSTRUCTIONAL SERVICES SPECIALIST C. difficile Carrier 08/05/2023 08/05/2023 024 12:21 AM INSTRUCTIONAL SERVICES SPECIALIST R/O C. difficile 08/19/2023 08/22/2023 08/22/2023 4:14 PM INSTRUCTIONAL SERVICES SPECIALIST R/O COVID-19 08/30/2023 08/30/2023 08/30/2023 4:19 PM INSTRUCTIONAL SERVICES SPECIALIST R/O C. difficile 02/23/2024 11/21/2024 02/28/2024 12:21 AM CDT R/O C. difficile 10/24/2024 11/21/2024 10/29/2024 12:21 AM CDT documented as of this encounter Care Teams Product Safety Lead Relationship Specialty Start Date End Date Julius Erazo II, MD [address] [place] [address] PCP - General Apprentice Painter Brush 02/02/17 documented as of this encounter
--- OUTSIDE RECORDS SUMMARY | 2025-01-28 17:20 | XMS_ITS | Clinical Summary ---
Author Organization [facility] Address [address] [place] [address] Care Team Providers Care Head Coach Name Role Phone Julius Erazo MD Primary Care Provider [phone] Allergies Active Allergy Reactions Criticality Noted Date Comments Bee Venom Protein (Honey Bee) Other (See Comments) Medium 07/08/2021 Hornet Venom Hives 10/14/2023 Medications amLODIPine (NORVASC) 5 MG tablet Take 1 tablet by mouth in the morning. 4 Active azaTHIOprine (IMURAN) 50 mg tablet TAKE 1 & 1 2 (ONE & ONE HALF) TABLETS BY MOUTH ONCE DAILY 7 Active cholecalciferol , vitamin D3, 125 mcg (5,000 unit) tablet Take 1 tablet by mouth in the morning. Active clopidogreL (PLAVIX) 75 mg tablet Take 1 tablet by mouth in the morning. 4 Active DULoxetine (CYMBALTA) [address] capsule Take 1 capsule by mouth every morning. Active EPINEPHrine (EPIPEN) 0.3 mg/0.3 mL injection syringe INJECT CONTENTS OF 1 PEN NEEDED FOR ALLERGIC REACTION Active ergocalciferol (ERGOCALCIFEROL ) 50,000 unit capsule Active fenofibrate (TRICOR) 145 MG tablet Take 1 tablet by mouth in the morning. 4 Active folic acid (FOLVITE) 1 MG tablet Take 1 tablet by mouth in the morning. 4 Active mesalamine (LIALDA) 1.2 gram EC tablet TAKE 4 TABLETS BY MOUTH ONCE DAILY 4 Active olmesartan (BENICAR) 20 MG tablet Take 0.5 tablets by mouth in the morning. 0 Active rosuvastatin (CRESTOR) 20 MG tablet Take 1 tablet by mouth nightly. 3 Active traZODone (DESYREL) 50 MG tablet Take 1 tablet by mouth in the morning. Active methotrexate (RHEUMATREX) 2.5 MG tablet Take 12.5 mg by mouth every 7 days. 4 Active Paxlovid 300 mg (150 mg x 2)-100 mg dose pack Take 3 each by mouth in the morning and 3 each in the evening. 4 Active prednisoLONE 5 mg tablet 4 Active cycloSPORINE (RESTASIS) 0.05% ophthalmic drops Administer 1 drop into both eyes every 12 (twelve) hours. Active dorzolamide-immanuel oloL (COSOPT) 22.3-6.8 mg/mL ophthalmic solution Administer 1 drop into both eyes in the morning and 1 drop in the evening. Active latanoprost (XALATAN) 0.005% ophthalmic solution Administer 1 drop into both eyes nightly. Active calcium carbonate/vitam in D3 (CALCIUM 600 + D,3, ORAL) Take by mouth. Activ e B-complex with vitamin C (B-PLEX) tablet Take 1 tablet by mouth in the morning. Active Active Problems Problem Noted Date Diagnosed Date Acute back pain with sciatica 09/04/2024 Chronic pain 09/04/2024 Cervical spondylosis 09/04/2024 DDD (degenerative disc disease), cervical 2024 Stenosis of right carotid artery 03/02/2024 Dizziness 12/13/2023 Hx of CABG 12/13/2023 Prediabetes 12/13/2023 Bilateral sensorineural hearing loss 07/24/2023 Anemia 03/01/2023 Insomnia 04/06/2022 Abnormal cardiovascular stress test 10/26/2021 Overview (09/04/2024): Added automatically from request for surgery [id number] BHAT (dyspnea on exertion) 07/20/2021 Allergy to honey bee venom 03/20/2021 Hyperglycemia 04/07/2020 Hyperlipidemia 04/07/2020 Family history of colon cancer 12/13/2018 Hx of adenomatous polyp of colon 12/13/2018 Dyslipidemia 10/24/2018 Hearing loss 10/24/2018 Encounter for screening colonoscopy 12/19/2017 History of ulcerative colitis 12/19/2017 Mild chronic obstructive pulmonary disease 10/22 Coronary atherosclerosis 07/26/2016 Bradycardia 03/01/2016 Primary hypertension 03/01/2016 Immunizations Immunization Administration Dates Next Due Moderna SARS-CoV-2 Vaccination 10/21/2022 Td (adult) (TDVAX) 07/01/2002 Tdap (BOOSTRIX, ADACEL) 05/02/2023 influenza, high-dose, nela valent (FLUZONE HIGH-DOSE) 06/17/2023,05/26/2022,05/25/2021,05/03 influenza, high-dose, trival ent (FLUZONE HIGH-DOSE) 05/09/2019,05/21/2017,05/26/2016,05/10 influenza, injectable, quadr ivalent, preservative free (AFLURIA/FLUARIX/FLULAVAL/FLUZONE) 08/15/2015 influenza, injectable, triva lent (AFLURIA/FLUZONE MDV) 07/01/2013,07/13/2012 influenza, trivalent, adjuva nted (FLUAD) 05/29/2018 influenza, unspecified 05/15/2024 pneumococcal conjugate PCV 1 3 (PREVNAR 13) 05/28/2017 pneumococcal polysaccharide PPV 23 (PNEUMOVAX 23) 03/08/2022 Social History Tobacco Use Types Packs/Day Years Used Date Smoking Tobacco: Former Cigarettes Q uit: 2003 Smokeless Tobacco: Never Tobacco Cessation:Counseling Given: Not Answered Alcohol Use Standard Drinks/Week Comments Never 0 (1 standard drink = 0.6 oz pur e alcohol) [facility] Utilities Answer Date Recorded In the past 12 months has [employer], [employer], oil, or water [employer] threatened to shut off services in your home? No 09/04/2024 PHQ-2 Answer Date Recorded PHQ-2 Score 0 09/04/2024 Hunger Vital Sign Answer Date Recorded Worried About Running Out of Food in the Last Ye ar Not on file 09/04/2024 Within the past 12 months, t he food you bought just didn't last and you didn't have money to get more. Never true 09/04/2024 PRAPARE - Transportation Answer Date Re corded In the past 12 months, has l ack of transportation kept you from medical appointments or from getting medications? No 08/16 In the past 12 months, has l ack of transportation kept you from meetings, work, or from getting things needed for daily living? No 09/04/2024 Housing Stability Vital Sign Answer Shimon e Recorded In the last 12 months, was t here a time when you were not able to pay the mortgage or rent on time? No 09/04/2024 Number of Times Moved in the Last Year Not on fi le 09/04/2024 At any time in the past 12 m [facility], were you homeless or living in a mcc (including now)? No 09/04/2024 Sex and Gender Information Value Date Recorded Sex Assigned at Not on file Legal Sex Male 5:56 PM CDT Gender Identity Not on file Sexual Orientation Not on file Last Filed Vital Signs Vital Sign Reading Time Taken Comments Blood Pressure 134/68 09/04/2024 10:39 AM SAFETY PATROL OFFICER Pulse 63 09/04/2024 10:39 AM SAFETY PATROL OFFICER Temperature - - Respiratory Rate - - Oxygen Saturation - - Inhaled Oxygen Concentration - - Weight 93.8 kg (206 lb 14.4 oz) 025 10:39 AM SAFETY PATROL OFFICER Height 179.1 cm (5' 10.5) 09/04/2024 1 0:39 AM SAFETY PATROL OFFICER Body Mass Index 29.27 09/04/2024 10:39 AM SAFETY PATROL OFFICER Plan of Treatment Upcoming Encounters Date Type Department Care Team (Late st Contact Info) Description 09/04/2025 11:30 AM SAFETY PATROL OFFICER Appointment [facility] - Echo/Vascular Ultrasound [address] [place] [address] 09/10/2025 1:00 PM SAFETY PATROL OFFICER Office Visit [facility] Thoracic & Vascular Services [address] [facility], [address] [place] [address] Russ Muñoz MD [address] [place] [address] [address] [place] [phone] Health Maintenance Due Date Last Done Comments Medicare Annual Wellness 1942 Colonoscopy 1987 Shingrix (ZOSTER RECOMBINANT) (1 of 2) 1992 RSV 60+ (1 - 1-dose 75+ series) 2017 COVID-19 Vaccine ( season) 2024 10/21/2022 Td, Tdap Vaccines Adult 05/02/2033 05/02/2023, 07/01 Pneumococcal Vaccine: 50+ Years Completed 03/08/2022, 05/28/2017 Influenza Vaccination Completed 05/15/2024 , 06/17/2023, 05/26/2022, Additional history exists HIB Vaccines Aged Out No longer eligi ble based on patient's age to complete this topic HPV Vaccines Aged Out No longer eligi ble based on patient's age to complete this topic Hepatitis A Vaccines Aged Out No long er eligible based on patient's age to complete this topic Hepatitis B Vaccines Aged Out No long er eligible based on patient's age to complete this topic IPV Vaccines Aged Out No longer eligi ble based on patient's age to complete this topic Meningococcal Vaccines Aged Out No lo nger eligible based on patient's age to complete this topic RSV Mab Nirsevimab (Beyfortus) <20 months Aged Out No longer eligibl e based on patient's age to complete this topic Rotavirus Vaccines Aged Out No longer eligible based on patient's age to complete this topic Insurance [facility] [facility] Care Teams Head Coach Relationship Specialty Start Date End Date Julius Erazo MD [address] [place] [phone] PCP - General Internal Medicine 02/27/24
--- OUTSIDE RECORDS SUMMARY | 2025-01-28 17:20 | XMS_ITS | Encounter Summary ---
Author Organization [facility] Address [address] [place] [address] Care Team Providers Care Boiler Out Name Role Phone Kacey SHIN MD, Julius Avendaño Primary Care Provider [phone] Reason for Visit * Reason Comments Med Refill Encounter Details Date Type Department Care Team (Late st Contact Info) Description 03/28/2020 Refill [facility] Medical Group Gastroenterology [address] [place] [address] Leatha Morin NP History of ulcerative colitis Social History Tobacco [...] encounter Miscellaneous Notes * Telephone Encounter - Agnieszka Sahni CMA - 03/28/2020 1:42 PM CDT Called patient made appt for TuesdayApr 02. Patient is not picking up prescription yet. Statedhe needs it written for 3 mo supply and it could be fill Tuesday after his visit. * Telephone Encounter - Kiya Anguiano NP - 03/28/2020 1:20 PM CDT It appears you have been seeing him. Thanks * Telephone Encounter - Kiya Anguiano NP - 03/28/2020 1:20 PM CDT I will fw to Chelsie, as I have not seen this patient. Thanks * Telephone Encounter - Nahun Cross MA - 03/28/2020 12:37 PM CDT Please advise thanks documented in this encounter Plan of Treatment Upcoming Encounters Date Type Department Care Team (Late st Contact Info) Description 02/26/2025 11:[address] [facility] [address] [place] [phone] Judy Bess PA [address] [place] [address] 03/28/2025 2:00 PM CDT Office Visit [facility] Sleep Medicine Professional Office [address] [phone] Lizeth Barreto MD [address] [place] [address] 06/26/2025 1:10 PM HITTING COACH Office Visit [facility] Gastroenterology [address] [place] [phone] Kiya Anguiano NP [address] [place] [address] 07/03/2025 11:10 AM HITTING COACH Office Visit [facility] Pulmonology [address] [place] [phone] Tita Graves, SPACE BUYER [address] [facility], [address] [place] [address] documented as of this encounter Visit Diagnoses Diagnosis History of ulcerative colitis documented in this encounter Additional Health Concerns Infection Onset Date Last Indicated Resolved Time R/O COVID-19 09/01/2021 09/01/2021 09/01/2021 9:10 PM HITTING COACH R/O C. difficile 06/09/2023 06/14/2023 06/14/2023 8:50 PM CDT R/O GI Infection 06/13/2023 06/13/2023 06/13/2023 5:51 PM CDT C. difficile Carrier 06/14/2023 06/14/2023 023 12:21 AM HITTING COACH R/O C. difficile 06/28/2023 06/30/2023 06/30/2023 3:55 PM HITTING COACH R/O C. difficile 08/04/2023 08/05/2023 08/05/2023 8:55 PM HITTING COACH C. difficile Carrier 08/05/2023 08/05/2023 024 12:21 AM HITTING COACH R/O C. difficile 08/19/2023 08/22/2023 08/22/2023 4:14 PM HITTING COACH R/O COVID-19 08/30/2023 08/30/2023 08/30/2023 4:19 PM HITTING COACH R/O C. difficile 02/23/2024 11/21/2024 02/28/2024 12:21 AM CDT R/O C. difficile 10/24/2024 11/21/2024 10/29/2024 12:21 AM CDT documented as of this encounter Care Teams Boiler Out Relationship Specialty Start Date End Date Julius Erazo II, MD [address] [place] [address] PCP - General Barrel Raiser Helper 02/02/17 documented as of this encounter
--- OUTSIDE RECORDS SUMMARY | 2025-01-28 17:20 | XMS_ITS | Encounter Summary ---
Author Organization [facility] Address [address] [facility] [place] [address] Care Team Providers Care Boat Person Name Role Phone Julius Erazo MD Primary Care Provider [phone] Encounter Details Date Type Department Care Team (Late st Contact Info) Description 01/11/2024 Orders Only [facility] Radiology [address] [place] [address] System, Provider Not In, [address] [place] [address] Social History Tobacco Use Types Packs/Day Years Used Date Smoking Tobacco: Never Assessed Sex and Gender Information Value Date Recorded Sex Assigned at Not on file Legal Sex Male 5:56 PM CDT Gender Identity Not on file Sexual Orientation Not on file documented as of this encounter Plan of Treatment Upcoming Encounters Date Type Department Care Team (Late st Contact Info) Description 09/04/2025 11:30 AM MATERIAL INSPECTOR Appointment [facility] - Echo/Vascular Ultrasound [address] [place] [address] 09/10/2025 1:00 PM MATERIAL INSPECTOR Office Visit [facility] Thoracic & Vascular Services [address] [facility], [address] [facility] [place] [address] Russ Muñoz MD [address] [place] [address] documented as of this encounter Procedures Procedure Name Priority Date/Time Associated Diagnosis Comments OUTSIDE IMAGES 01/11/2024 1:39 PM CDT documented in this encounter Results * Outside Images (01/11/2024 1:39 PM CDT) Anatomical Region Laterality Modality N/A Radiographic Diane ging 01/11/2024 1:39 PM CDT Narrative 01/11/2024 1:39 PM CDT Image acquired from external facility for exam: US CAROTID BILATERAL Procedure Note System, Provider Not In, - 01/19/2024 Image acquired from external facility for exam: US CAROTID BILATERAL us Provider Not In System MD [facility] Final Result documented in this encounter Visit Diagnoses Not on filedocumented in this encounter Care Teams Boat Person Relationship Specialty Start Date End Date Julius Erazo MD [address] [place] [phone] PCP - General Internal Medicine 02/27/24 documented as of this encounter
--- OUTSIDE RECORDS SUMMARY | 2025-01-28 17:20 | XMS_ITS | Clinical Summary ---
Author Organization [facility] Address [address] [place] [address] Care Team Providers Care Sales Department Clerk Name Role Phone Kacey SHIN MD, Julius Avendaño Primary Care Provider [phone] Allergies Active Allergy Reactions Criticality Noted Date Comments Bee Venom Protein (Honey Bee) 2020 Hornet Venom 10/14/2023 Venom-Honey Bee Other (see comments) Medium 07/08/2021 Medications EPINEPHrine (EPIPEN) 0.3 mg/0.3 mL injection syringe Inject 0.3 mL (0.3 mg total) under the skin as needed for anaphylaxis Active fenofibrate (TRICOR) 145 mg tablet Take 1 tablet (145 mg total) by mouth nightly Active cycloSPORINE (RESTASIS) 0.05 % ophthalmic emulsion Restasis 0.05 % eye drops in a dropperette INSTILL 1 DROP INTO EACH EYE TWICE DAILY Active dorzolamide (TRUSOPT) 2 % ophthalmic solution Active clopidogreL (PLAVIX) 75 mg tablet Take 1 tablet (75 mg total) by mouth daily Active cholecalciferol , vitamin D3, 125 mcg (5,000 unit) tablet Take 1 tablet by mouth daily Active rosuvastatin (CRESTOR) 20 mg tablet Take 1 tablet (20 mg total) by mouth daily Active traZODone (DESYREL) 50 mg tablet Take 1 tablet (50 mg total) by mouth nightly Active latanoprost (XALATAN) 0.005 % ophthalmic solution INSTILL 1 DROP INTO LEFT EYE AT BEDTIME 3 Active dorzolamide-immanuel oloL (COSOPT) 22.3-6.8 mg/mL ophthalmic solution 3 Active sodium,potassiu m,mag sulfates (SUPREP BOWEL PREP KIT) 17.5-3.13-1.6 gram oral solutionIndicat ions:Melena,Ane gabriel, unspecified type,Other fecal abnormalities,D ark stools,Flatulen ce,Ulcerative colitis with complication, unspecified location (HCC) Take as directed prior to colonoscopy 1 kit 4 Active Additional Information Patient not taking.Reported on 12/27/2024 folic acid (FOLVITE) 1 mg tablet Take 1 tablet (1 mg total) by mouth daily 4 Active amLODIPine (NORVASC) 2.5 mg tablet Take 1 tablet (2.5 mg total) by mouth daily 4 Active DULoxetine (CYMBALTA) 60 mg capsule Take 1 capsule (60 mg total) by mouth every morning IN THE MORNING Active olmesartan (BENICAR) 5 mg tablet Take 2 tablets (10 mg total) by mouth daily Active B-complex with vitamin C tablet Take 1 tablet by mouth daily Active azaTHIOprine (IMURAN) 50 mg tabletIndicatio ns:Medication refill,Ulcerati ve colitis without complications, unspecified location (HCC) TAKE 1 & 1/2 (ONE & ONE-HALF) TABLETS BY MOUTH ONCE DAILY 135 tablet 5 Active donepeziL (Aricept) 10 mg tabletIndicatio ns:Amnestic MCI (mild cognitive impairment with memory loss) Take 1 tablet (10 mg total) by mouth nightly 90 tablet 5 5 Active memantine (Namenda) 10 mg tabletIndicatio ns:Amnestic MCI (mild cognitive impairment with memory loss) Take 1 tablet (10 mg total) by mouth 2 (two) times a day 90 tablet 5 5 Active tiotropium bromide (Spiriva Respimat) 1.25 mcg/actuation mistIndications :Chronic obstructive pulmonary disease, unspecified COPD type (HCC) Inhale 2 puffs daily 12 g 1 5 025 Active mesalamine (LIALDA) 1.2 gram EC tabletIndicatio ns:Medication refill,Ulcerati ve colitis without complications, unspecified location (HCC) TAKE 4 TABLETS BY MOUTH ONCE DAILY 360 tablet 2 5 Active mesalamine (LIALDA) 1.2 gram EC tabletIndicatio ns:Medication refill,Ulcerati ve colitis without complications, unspecified location (HCC) TAKE 4 TABLETS BY MOUTH ONCE DAILY 360 tablet 3 4 025 Discontin ued(Reord er*) Active Problems Problem Noted Date Diagnosed Date Abnormal cardiovascular stress test 10/26/2021 Overview (10/26/2021): Added automatically from request for surgery [id number] Ulcerative colitis without complications 021 Allergy to honey bee venom 03/20/2021 Mixed anxiety and depressive disorder 09/22/2020 Hyperglycemia 04/07/2020 Hyperlipidemia 04/07/2020 Medication refill 04/02/2020 Hx of adenomatous polyp of colon 12/13/2018 Family history of colon cancer 12/13/2018 Dyslipidemia 10/24/2018 Hearing loss 10/24/2018 Encounter for screening colonoscopy 12/19/2017 History of ulcerative colitis 12/19/2017 Mild chronic obstructive pulmonary disease 10/22 Coronary atherosclerosis 07/26/2016 Bradycardia 03/01/2016 Essential hypertension 03/01/2016 Encounters Date Type Department Care Team Description 01/18/2025 11:15 AM CDT Treatment [facility] Outpatient Rehabilitation [employer] [address] [place] [phone] Eugenia Tejada DPT Imbalance (Primary Dx) 01/17/2025 Orders Only [facility] Pulmonology [address] [place] [phone] Mary Alice Jo, CLINICAL SECRETARY SOB (shortness of breath) (Primary Dx); Chronic obstructive pulmonary disease, unspecified COPD type (HCC); Other fatigue 01/16/2025 11:15 AM CDT Treatment [facility] Outpatient Rehabilitation [address] [phone] Eugenia Tejada DPT Tanner, Angela J, PTA Imbalance (Primary Dx) 01/16/2025 Telephone [facility] [address] [place] [phone] Tita Graves, FLEXIBLE BABYSITTER Sleep Study 01/11/2025 11:15 AM CDT Treatment [facility] Outpatient Rehabilitation [facility] [address] [place] [phone] Eugenia Tejada DPT Imbalance (Primary Dx) 01/09/2025 Telephone [facility] Outpatient Rehabilitation [facility] [place] [phone] Melody Beavers PTA 01/04/2025 11:15 AM CDT Treatment [facility] Outpatient Rehabilitation [facility] [place] [address] Eugenia Tejada DPT Tanner, Angela J, PTA Imbalance (Primary Dx) 01/03/2025 Orders Only [facility] Gastroenter[facility] [address] [place] [address] Kiya Anguiano NP Medication refill; Ulcerative colitis without complications, unspecified location (HCC) 01/03/2025 Refill [facility] [address] [place] [address] Kiya Anguiano NP Medication refill; Ulcerative colitis without complications, unspecified location (HCC) 01/02/2025 9:30 AM CDT Treatment [facility] Outpatient Rehabilitation [facility] [place] [address] Eugenia Tejada DPT Tanner, Angela J, PTA Imbalance (Primary Dx) 12/28/2024 11:15 AM CDT Treatment [facility] Outpatient Rehabilitation [facility] [place] [address] Eugenia Tejada DPT Imbalance (Primary Dx) 12/27/2024 9:50 AM CDT Office Visit [facility] [address] [place] [phone] Tita Graves, FLEXIBLE BABYSITTER Chronic obstructive pulmonary disease, unspecified COPD type (HCC) (Primary Dx); SOB (shortness of breath); Coronary artery disease involving omaha coronary artery of omaha heart without angina pectoris; S/P CABG (coronary artery bypass graft); History of nicotine dependence 12/26/2024 11:15 AM CDT Treatment [facility] Outpatient Rehabilitation [address] [address] Eugenia Tejada DPT Tanner, Angela J, [employer] MICA Imbalance (Primary Dx) 12/21/2024 11:15 AM CDT Treatment [facility] Outpatient Rehabilitation [address] [phone] Eugenia Tejada DPT Imbalance (Primary Dx) 12/19/2024 11:00 AM CDT Treatment [facility] Outpatient Rehabilitation [address] [phone] Eugenia Tejada DPT Tanner, Angela J, [employer] Imbalance (Primary Dx) 12/14/2024 1:00 PM CDT Treatment [facility] Outpatient Rehabilitation [address] [phone] Eugenia Tejada DPT Tanner, Angela J, [employer] Imbalance (Primary Dx) 12/13/2024 11:00 AM CDT Office Visit [facility] Neu[facility] [address] [place] [phone] Domo Syed MD Amnestic MCI (mild cognitive impairment with memory loss) (Primary Dx) 12/12/2024 8:00 AM CDT Treatment [facility] Outpatient Rehabilitation [address] [phone] Eugenia Tejada DPT Imbalance (Primary Dx) 12/11/2024 1:55 PM CDT - 12/11/2024 11:59 PM CDT Hospital Encounter [facility] [address] [place] [address] Tita Graves NP Discharge Disposition: Home self care 12/10/2024 Telephone [facility] [address] [place] [phone] Amy Molina LPN Lab Results 12/04/2024 2:00 PM CDT Evaluation [facility] Outpatient Rehabilitation [place] [address] [place] [phone] Eugenia Tejada DPT Imbalance (Primary Dx) 11/30/2024 Telephone [facility] [address] [place] [phone] Nathalie Gonzalez, MANUEL 11/30/2024 Telephone [facility] [address] [place] [phone] Nathalie Gonzalez, MANUEL 11/28/2024 Telephone [facility] [address] [place] [phone] Nathalie Gonzalez, MANUEL 11/26/2024 10:13 AM CDT - 11/26/2024 11:59 PM CDT Hospital Encounter [facility] [address] [place] [address] Tita Graves NP Chronic obstructive pulmonary disease, unspecified COPD type ([facility]) Discharge Disposition: Home self care 11/26/2024 Telephone [facility] [address] [place] [address] Carina Jenkins LPN Results 11/22/2024 Telephone [facility] [address] [place] [address] Taylor Lynn, RADHA Results 11/21/2024 Telephone [facility] [address] [place] [address] Carina Jenkins LPN Results 11/20/2024 Refill [facility] [address] [place] [address] Kiya Anguiano, REESE Medication refill; Ulcerative colitis without complications, unspecified location (HCC) 11/19/2024 10:00 AM CDT Office Visit [facility] [address] [place] [phone] Nydia Srivastava MD Kuruvilla, Abraham, MD Amnestic MCI (mild cognitive impairment with memory loss) (Primary Dx) 11/19/2024 Orders Only [facility] [address] [place] [address] [address] [place] [address] Davion Medina MD Amnestic MCI (mild cognitive impairment with memory loss) (Primary Dx) 11/16/2024 Documentation [facility] [address] [place] [phone] Tita Graves NP 11/16/2024 Telephone [facility] [address] [place] [phone] Mray Alice Jo, [facility] 11/16/2024 Telephone [facility] [address] [place] [phone] Mary Alice Jo, [facility] 11/14/2024 Telephone [facility] [address] [place] [address] Kiya Anguiano, REESE Order Clarification from Last 3 Months Immunizations Immunization Administration Dates Next Due Influenza (IM) Quad PF 08/15/2015 Influenza High Dose Quadrivalent 023,05/26/2022,05/25/2021,05/03 Influenza TIV (IM) 07/01/2013,07/13/2012 Influenza, Trivalent Adjuvanted 05/29/2018 Influenza, high-dose, trivalent, PF 04/16,05/21/2017,05/26/2016,05/10 Moderna Covid-19, Mrna, Lnp- s, Pf, 100mcg/0.5ml Dose 10/21/2022 Pneumococcal Conjugate 13-Valent 05/28/2017 Pneumococcal Polysaccharide PPSV23 03/08/2022 Td 07/01/2002 Tdap 05/02/2023 Family History Medical History Relation Name Comments Prostate cancer Brother Cancer Mother Ovarian cancer Sister Relation Name Status Comments Brother Mother Sister Social History Tobacco Use Types Packs/Day Years Used Date Smoking Tobacco: Former Cigarettes 1 50 1 957 - 2007 Smokeless Tobacco: Never Tobacco Cessation:Counseling Given: Not Answered Alcohol Use Standard Drinks/Week Comments No 0 (1 standard drink = 0.6 oz pur e alcohol) Sex and Gender Information Value Date Recorded Sex Assigned at Not on file Legal Sex Male 8:51 PM CDT Gender Identity Not on file Sexual Orientation Not on file Last Filed Vital Signs Vital Sign Reading Time Taken Comments Blood Pressure 115/66 12/27/2024 9:54 AM CDT Pulse 66 12/27/2024 9:54 AM CDT Temperature 36.2 C (97.2 F) 12/13/2024 10:53 AM CDT Respiratory Rate 18 12/27/2024 9:54 AM CDT Oxygen Saturation 95% 12/27/2024 9:54 AM CDT Inhaled Oxygen Concentration - - Weight 94.8 kg (209 lb) 12/27/2024 9:54 AM CDT Height 179.1 cm (5' 10.5) 12/27/2024 9:54 AM CD T Body Mass Index 29.56 12/27/2024 9:54 AM CDT Plan of Treatment Upcoming Encounters Date Type Department Care Team (Late st Contact Info) Description 02/26/2025 11:00 AM CDT Appointment [facility] [address] [place] [address] Judy Bess PA [address] [place] [address] 03/28/2025 2:00 PM CDT Office Visit [facility] Sleep Medicine Professional Office Building [address] [place] [phone] Lizeth Barreto MD [address] [place] [address] 06/26/2025 1:10 PM PETROLEUM PRODUCTION ENGINEER Office Visit [facility] Medical Group Gastroenterology [address] [place] [phone] Kiya Anguiano, REESE [address] [place] [address] 07/03/2025 11:10 AM PETROLEUM PRODUCTION ENGINEER Office Visit [facility] Medical [facility] Pulmonology [address] [place] [phone] Tita Graves NP [address] [place] [address], [address] [address] Health Maintenance Due Date Last Done Comments Fall Risk Assessment 2007 Medicare Annual Wellness Visit 2007 RSV Vaccines and 60 Years or Older (1 - 1-dose 75+ series) 2017 Advance Care Planning 08/15/2024 05/04/2023 COVID-19 Vaccine ( season) 2024 05/14/2024, 07/13/2023, 12/16/2022, Additional history exists DTaP,Tdap,and Td Vaccines (2 - Td or Tdap) 05/02/2033 05/02/2023, 07/01/2002 AMB Pneumococcal 0-49 yrs Discontinued 03/08/2022, AMB Pneumococcal 50+ yrs Completed 03/08/2022, 05/15 Advanced Care Planning Discontinued 05/04/2023 Influenza Vaccine Completed 05/15/2024, , 06/17/2023, Additional history exists Zoster Series Vaccines Completed 06/27/2024, 2023 HIB Vaccines Aged Out No longer eligi [...] patient's age to complete this topic Meningococcal ACWY Vaccine Aged Out N o longer eligible based on patient's age to complete this topic Meningococcal B Vaccine Aged Out No l onger eligible based on patient's age to complete this topic RSV Vaccines <20 Months Aged Out No l onger eligible based on patient's age to complete this topic Medical Devices Implanted Type Area Route Delivery Supervisor Device Identifier Shelf Expiration Date Model / Serial / Lot Stent Synergy Rx [id number] - [id number] - [id number] Implanted:Qty: 1 on 10/29/2021 by Alberto Mejia MD at [facility] Drug Eluting Stent N/A: RCA Mid [employer] 05/21/2022 [id number] / [id number] / [id number] Closure Proglide - [id number] - [id number] Implanted:Qty: 1 on 10/29/2021 by Alberto Mejia MD at [facility] Vascular Right: Femoral Artery [employer] 03/14/2023 [id number] / [id number] / [id number] Procedures Procedure Name Priority Date/Time Associated Diagnosis Comments MISCELLANEOUS LAB TEST Routine 12:21 PM CDT Amnestic MCI (mild cognitive impairment with memory loss) COMPLETE PFT Routine 12/11/2024 2:34 PM CDT Chronic obstructive pulmonary disease, unspecified COPD type (HCC) VITAMIN D 25 HYDROXY Routine 12/05/2024 10:48 AM CDT Amnestic MCI (mild cognitive impairment with memory loss) VITAMIN B12 Routine 12/05/2024 10:48 AM CDT Amnestic MCI (mild cognitive impairment with memory loss) TSH REFLEX TO FT4 Routine 12/05/2024 10: 48 AM CDT Amnestic MCI (mild cognitive impairment with memory loss) RPR REFLEX TO TITER AND TP-PA CONFIRMATION Routine 12/05/2024 10:48 AM CDT Amnestic MCI (mild cognitive impairment with memory loss) CALPROTECTIN, FECAL BY IMMUNOASSAY Routine 11/21/2024 9:25 AM CDT Other fecal abnormalities Incontinence of feces, unspecified fecal incontinence type CLOSTRIDIOIDES DIFFICLE TOXIN B GENE PCR W/ REFLEX TO TOXIN BY EIA (CLOSTRIDIUM DIFFICILE) Routine 11/21/2024 9:25 AM CDT Other fecal abnormalities Incontinence of feces, unspecified fecal incontinence type FOLATE Routine 11/20/2024 10:16 AM CDT Amnestic MCI (mild cognitive impairment with memory loss) THIOPURINE METABOLITES IN RBC Routine 11/14/2024 3:21 PM CDT Encounter for long-term (current) use of medications from Last 3 Months Results * Abeta 42/40 and P-Tau 217 - Miscellaneous Test (12/13/2024 12:21 PM CDT) Blood Venous blood specimen / Unknown Venipuncture / Unknown 12/13/2024 12:21 PM CDT 12/13/2024 12:50 PM CDT us Domo Syed MD LAB BLOOD ORDERABLES Fin al Result [facility] [address] [place] [address] * COMPLETE PFT (12/11/2024 2:34 PM CDT) 12/24/2024 12:2 0 PM CDT Narrative [facility] - 12/24/2024 1:04 PM CDT Table formatting from the original result was not included. ORDER NUMBER: [id number] DATE OF SERVICE: 12/11/2024 AGE: 84 Results of this test meet the ATS criteria for acceptability and repeatability. SPIROMETRY: FEV1/FVC ratio is 71%. FVC 3.50 L (87% of predicted). FEV1 2.48 L (86% of predicted). LUNG VOLUMES BY BODY PLETHYSMOGRAPHY: TLC 6.61 L (92% of predicted). RV 3.12 L (107% of predicted). RV/TLC ratio is 40 47%. DIFFUSION CAPACITY: DLCO 18.31 mL/min/mmHg (71% of predicted). DLCO/VA ratio is 86%. FLOW VOLUME LOOP: The flow volume loop shows normal configuration. The patient's previous PFT, 08/12/2021 showed FEV1/FVC ratio of 70%, FVC 3.82 L (99.2% of predicted), FEV1 2.68 L (93.6% of predicted), TLC 96.6% of predicted and DLCO 75.5% of predicted. INTERPRETATION: No evidence of airflow obstruction or restrictive lung disease. There is no air trapping or hyperinflation. Normal diffusion capacity when adjusted for alveolar ventilation. Overall normal PFT. Sam Arnoldo Jacinto MD TR: REYNA DP: JORDEN JOB ID: [id number] DOC ID: [id number] us Tita Graves FLEXIBLE BABYSITTER PFT ORDERABLES Final Resu lt [facility] * TSH Reflex to FT4 (12/05/2024 10:48 AM CDT) TSH 2.73 0.45 - 5.33 mIU/L 12/05/2024 12:15 PM CDT [facility] Blood Venous blood specimen / Unknown Venipuncture / Unknown 12/05/2024 10:48 AM CDT 12/05/2024 11:37 AM CDT us Davion Medina MD LAB BLOOD ORDERABLES Final Result [address] [address] * Vitamin D 25 Hydroxy (12/05/2024 10:48 AM CDT) Vitamin D 25-Hydroxy 41.7 30.0 - 100.0 ng/mL 12/05/2024 7:33 PM CDT [facility] Blood Venous blood specimen / Unknown Venipuncture / Unknown 12/05/2024 10:48 AM CDT 12/05/2024 11:36 AM CDT Davion Medina MD LAB BLOOD ORDERABLES Final Result [address] [address] * RPR Reflex to Titer & TP-PA Confirmation (12/05/2024 10:48 AM CDT) RPR Screen Non-reacti ve Non-Reacti ve 12/06/2024 9:24 AM CDT [facility] Blood Venous blood specimen / Unknown Venipuncture / Unknown 12/05/2024 10:48 AM CDT 12/05/2024 11:36 AM CDT Davion Medina MD LAB BLOOD ORDERABLES Final Result Performing Organization Address City/[facility]/ZIP Co de Phone Number [address] [address] * Vitamin B12 (12/05/2024 10:48 AM CDT) Vitamin B12 495 180 - 914 pg/mL 12/05/2024 12:26 PM CDT [facility] Blood Venous blood specimen / Unknown Venipuncture / Unknown 12/05/2024 10:48 AM CDT 12/05/2024 11:37 AM CDT Davion Medina MD LAB BLOOD ORDERABLES Final Result [address] [address] * Calprotectin, Fecal by Immunoassay (11/21/2024 9:25 AM CDT) CPRO FECAL 22 <=49 ug/g 11/24/2024 7:13 AM CDT [facility] Comment: REFERENCE INTERVAL: Calprotectin, Fecal by Immunoassay Less than 50 ug/g........Normal 50-120 ug/g..............Borderline elevated, test should be re-evaluated in 4-6 weeks. 121 ug/g or greater......Elevated Performed By: [facility] [address] [place] [address] [employer] Supervisor: Zachary Herring MD, PhD CLIA Number: [id number] Stool Rectal route / Unknown Non-blood Collection / Unknown 11/21/2024 9:25 AM CDT 11/21/2024 1:35 PM CDT Narrative [facility] - 11/24/2024 7:13 AM CDT Source: Unconfirmed Specimen Start Date: Kiya Anguiano NP LAB BODY FLUIDS AND STOOLS O RDERABLES Final Result [address] [address] * Clostridioides difficle Toxin B Gene PCR w/ reflex to Toxin by EIA (Clostridium difficile) (11/21/2024 9:25 AM CDT) Clostridioides difficile Toxin B Gene PCR Negative Negative 11/21/2024 4:23 PM CDT [facility] Clostridioides Difficile NAP1 Presumptive Negative Presumptive Negative 11/21/2024 4:23 PM CDT [facility] Stool Rectal route / Unknown Non-blood Collection / Unknown 11/21/2024 9:25 AM CDT 11/21/2024 12:07 PM CDT Kiya Anguiano NP LAB MICROBIOLOGY - GENERAL O RDERABLES Final Result [address] [address] * Folate (11/20/2024 10:16 AM CDT) Folate 21.90 >=5.90 ng/mL 11/20/2024 11:17 AM CDT [facility] Blood Venous blood specimen / Unknown Venipuncture / Unknown 11/20/2024 10:16 AM CDT 11/20/2024 10:25 AM CDT Davion Medina MD LAB BLOOD ORDERABLES Final Result [address] [address] * (ABNORMAL) Thiopurine Metabolites in RBC (11/14/2024 3:21 PM CDT) Pathologist [facility] 6-Thioguanine RBC 136(L) 235 - 450 pmol/8x10 (8)RBC 11/18/2024 10:17 AM CDT [facility] Comment: INTERPRETIVE INFORMATION: Thiopurine Metabolites in RBC Thiopurine drug therapy is used to treat autoimmune diseases, inflammatory bowel disease, acute lymphoblastic leukemia, and to prevent rejection after solid organ transplant. Thiopurine drugs are metabolized to active 6-thioguanine nucleotides, which are regulated by thiopurine methyltransferase (TPMT) and nudix hydrolase 15 (NUDT15). Certain variants in the TPMT and/or NUDT15 genes can be associated with an accumulation of cytotoxic metabolites that increase the risk of drug-related toxicity with standard doses of thiopurine drugs. Thiopurine metabolites concentrations are used to assess therapeutic and toxic concentrations of thiopurine drugs. This test was developed and its performance characteristics determined by [facility]. It has not been cleared or approved by the U.S. Food and Drug Administration. This test was performed in a CLIA-certified laboratory and is intended for clinical purposes. 6-Methylmercaptopurin e 592 <=5700 pmol/8x10 (8)RBC 11/18/2024 10:17 AM CDT [facility] Comment: Performed By: [facility] [address] [place] [address] [employer] Supervisor: Zachary Herring MD, PhD CLIA Number: [id number] Blood Venous blood specimen / Unknown Venipuncture / Unknown 11/14/2024 3:21 PM CDT 11/14/2024 3:32 PM CDT Narrative [facility] - 11/18/2024 10:17 AM CDT Source: Unconfirmed Specimen Start Date: [id number] us Kiya Anguiano FLEXIBLE BABYSITTER LAB BLOOD ORDERABLES Final R esult [facility] [address] [place] [address] from Last 3 Months Insurance [employer] MEDICARE [place] Advance Directives For more information, please contact: [phone] * Full Code (Latest Code Status on File) Date Activated Date Inactivated Comments 10/27/2023 7:19 AM 10/27/2023 12:24 PM * Full Code Date Activated Date Inactivated Comments 10/29/2021 3:04 PM 10/29/2021 9:04 PM * Full Code Date Activated Date Inactivated Comments 09/03/2021 7:21 AM 09/03/2021 11:44 AM * Full Code Date Activated Date Inactivated Comments 12/26/2017 9:07 AM 12/26/2017 12:46 PM Care Teams Sales Department Clerk Relationship Specialty Start Date End Date Julius Erazo II, MD [address] [place] [address] PCP - General Consular Officer 02/02/17
--- OUTSIDE RECORDS SUMMARY | 2025-01-28 17:20 | XMS_ITS | Encounter Summary ---
Author Organization [facility] [place] althcare Address [address] [place] [address] Care Team Providers Care Block Machine Operator Name Role Phone Kacey SHIN MD, Julius Avendaño Primary Care Provider [phone] Encounter Details Date Type Department Care Team (Latest Contact Info) Description 10/26/2021 Prep for Case [facility] [address] [place] [address] Christa Fleming, MANUEL Abnormal cardiovascular stress test (Primary Dx); Encounter for long-term current use of medication Social History Tobacco Use Types Packs/Day Years [...] on file Sexual Orientation Not on file COVID-19 Exposure Response Date Recorded In the last month, have you been in contact with someone who was confirmed or suspected to have Coronavirus / COVID-19? No / Unsure 10/29/2021 11:01 AM CDT documented as of this encounter Plan of Treatment Upcoming Encounters Date Type Department Care Team (Late st Contact Info) Description 02/26/2025 11:00 AM CDT Appointment [facility] [address] [place] [address] Judy Bess PA [address] [place] [address] [phone] 03/28/2025 2:00 PM CDT Office Visit [facility] Sleep Medicine Professional Office Building [address] [place] [phone] Lizeth Barreto MD [address] [place] [phone] 06/26/2025 1:10 PM REEL WORKER Office Visit [facility] Gastroenterology [address] [place] [address] [place] [phone] Kiya Anguiano NP [address] [place] [address] [place] [address] 07/03/2025 11:10 AM REEL WORKER Office Visit [facility] Pulmonology [address] [place] [phone] Tita Graves NP [address] [place] [phone] documented as of this encounter Visit Diagnoses Diagnosis Abnormal cardiovascular stress test- Primary Other nonspecific abnormal cardiovascular system function study Encounter for long-term current use of medication documented in this encounter Additional Health Concerns Infection Onset Date Last Indicated Resolved Time R/O C. difficile 06/09/2023 06/14/2023 06/14/2023 8:50 PM CDT R/O GI Infection 06/13/2023 06/13/2023 06/13/2023 5:51 PM CDT C. difficile Carrier 06/14/2023 06/14/2023 023 12:21 AM REEL WORKER R/O C. difficile 06/28/2023 06/30/2023 06/30/2023 3:55 PM REEL WORKER R/O C. difficile 08/04/2023 08/05/2023 08/05/2023 8:55 PM REEL WORKER C. difficile Carrier 08/05/2023 08/05/2023 024 12:21 AM REEL WORKER R/O C. difficile 08/19/2023 08/22/2023 08/22/2023 4:14 PM REEL WORKER R/O COVID-19 08/30/2023 08/30/2023 08/30/2023 4:19 PM REEL WORKER R/O C. difficile 02/23/2024 11/21/2024 02/28/2024 12:21 AM CDT R/O C. difficile 10/24/2024 11/21/2024 10/29/2024 12:21 AM CDT documented as of this encounter Care Teams Block Machine Operator Relationship Specialty Start Date End Date Julius Erazo II, MD [address] [place] [address] PCP - General Washer Engineer 02/02/17 documented as of this encounter
[2025-01-28] MEDS: TAMSULOSIN HCL 0.4 MG CAPSULE PO (17:40)
== END 2025-01-28 17:41 | disposition home or self-care (01) ==
PROVIDERS: Emergency Provider Emergency Medicine
DX: N99.89 Other postprocedural complications and disorders of genitourinary system (principal); R33.8 Other retention of urine; Z96.21 Cochlear implant status
CPT/HCPCS: 51702; 99283; A9270